=== PATIENT | female | born 1965 | race Caucasian/White ===

== ENCOUNTER → 2018-04-01 12:22 | Outpatient (CLI) | payer MEDICARE, SELFPAY ==
[2018-04-01 13:19] LABS: Amphetamine Urine VISTA NEGATIVE (<1000 ng/mL); Barbiturate Urine VISTA NEGATIVE (< 200 ng/mL); Benzodiazepine Urine VISTA NEGATIVE (< 200 ng/mL); Cocaine Urine VISTA NEGATIVE (< 300 ng/mL); Ecstacy Urine VISTA NEGATIVE (< 500 ng/mL); Methadone Urine VISTA NEGATIVE (< 300 ng/mL); PCP Urine VISTA NEGATIVE (< 25 ng/mL); THC Urine VISTA NEGATIVE (< 50 ng/mL); Vista UDS pH Range 5
== END ==
PROVIDERS: Visit Provider Anesthesiology Pain Medicine
DX: F11.20 Opioid dependence, uncomplicated (principal)
CPT/HCPCS: 80307

== ENCOUNTER → 2018-08-06 15:56 | Outpatient (CLI) | payer MEDICARE, SELFPAY ==
--- NOTE | 2018-08-06 16:00 | RAD_ITS ---
STUDY: X-RAY - RIGHT SHOULDER REASON FOR EXAM: Female, 52 years old. Chronic shoulder pain TECHNIQUE: 4 view(s) of the shoulder. COMPARISON: None. FINDINGS: There are degenerative changes involving the right acromioclavicular joint. The glenohumeral articulation is normal. There is evidence of calcific tendinitis/bursitis adjacent to the greater tuberosity. Electronically Signed: Talha Riggs MD at 2:44 EST Tel , Service support , RAD/Shoulder min 2 Views
--- OUTSIDE RECORDS SUMMARY | 2018-10-11 11:33 | XMS RPT_ITS ---
:1965 External Reference #:[id number] Author Organization OHIP Care Team Providers Name Role Phone JOSR CRUZ CNP Admitting Unavailable JOSR CRUZ CNP Attending Unavailable JOSR CRUZ CNP Primary Care Unavailable MARITZA BEJARANO MD Consulting Unavailable PROVIDER, UNKNOWN Consulting Unavailable PROVIDER, UNKNOWN Consulting Unavailable PROVIDER, UNKNOWN Consulting Unavailable JOSR CRUZ CNP Admitting Unavailable JOSR CRUZ CNP Attending Unavailable JOSR CRUZ CNP Primary Care Unavailable MARITZA BEJARANO MD Consulting Unavailable PROVIDER, UNKNOWN Consulting Unavailable PROVIDER, UNKNOWN Consulting Unavailable PROVIDER, UNKNOWN Consulting Unavailable MARITZA BEJARANO MD Admitting Unavailable MARITZA BEJARANO MD Attending Unavailable MARITZA BEJARANO MD Primary Care Unavailable MARITZA BEJARANO MD Consulting Unavailable PROVIDER, UNKNOWN Consulting Unavailable PROVIDER, UNKNOWN Consulting Unavailable PROVIDER, UNKNOWN Consulting Unavailable Christiano Small Attending Unavailable Christiano Small Referring Unavailable MARITZA BEJARANO Primary Care Unavailable Christiano Small Attending Unavailable Christiano Small Referring Unavailable STALIN CRAFT Primary Care Unavailable PROBLEMS PROBLEMS DATE TYPE CONDITION / CODE ATTENDING STATUS SOURCE 07/22/2018 Secondary Type 2 diabetes MARITZA BEJARANO Active Jem Bowens Diagnosis mellitus without MD [facility] complications / Hospital E119(ICD-10) Repository 07/22/2018 Principle Iron deficiency MARITZA BEJARANO Active Jem Bowens Diagnosis anemia, unspecified [facility] / D509(ICD-10) Hospital Repository 07/22/2018 Secondary Hypothyroidism, MARITZA BEJARANO Active Jem Bowens Diagnosis unspecified / MD [facility] E039(ICD-10) Hospital Repository 07/22/2018 Principle Encounter for JOSR CRUZ Active Jem Cabaarpita Diagnosis general adult [place] [facility] with abnormal Repository findings / Z0001(ICD-10) 07/20/2018 Admitting Encounter for JOSR CRUZ Active Jem Cabaarpita Diagnosis screening mammogram [facility] neoplasm of breast Repository / Z1231(ICD-10) 07/20/2018 Principle Encounter for JOSR CRUZ Active Jem Bowens Diagnosis screening mammogram [facility] neoplasm of breast Repository / Z1231(ICD-10) 04/10/2018 Unknown F11.20 - Opioid Christiano Small [place] dependence, [facility] F11.20(ICD-10) Repository PROCEDURES PROCEDURES No Procedure Records FoundRESULTS RESULTS SHOULDER MIN 2 VIEWS Observed: 08/06/2018 Status: F Source: CRESSON 4:00 PM [facility] REPOSITORY [facility] [address] [place] [address] Shoulder min 2 Views MR#: [id number] Acct: [id number] Name: ALBA BISWAS Rep #: [id number] : 1965 F 52 From: Talha Riggs MD PCP: Maritza Bejarano Status: REG CLI Study: Shoulder min 2 Views Date of Exam: 08/06/18 Exam# [id number] Ordering Dr: Christiano Small MD STUDY: X-RAY - RIGHT SHOULDER REASON FOR EXAM: Female, 52 years old. Chronic shoulder pain TECHNIQUE: 4 view(s) of the shoulder. COMPARISON: None. FINDINGS: There are degenerative changes involving the right acromioclavicular joint. The glenohumeral articulation is normal. There is evidence of calcific tendinitis/bursitis adjacent to the greater tuberosity. Electronically Signed: Talha Riggs MD at 2:44 EST Tel , Service support , RAD/Shoulder min 2 Views CC: Christiano Small MD; Maritza Bejarano Software Architect: Signed MAMM DIGITAL BILAT Observed: 07/20/2018 Status: F Source: [facility] SCREEN 3:43 PM [place] [address] Patient: ALBA BISWAS Phone#: : 1965 Age: 52 Gender: F Pt. Type: Out Account: [id number] Location: [facility] Ordering: JOSR CRUZ Exam Date: 07/20/2018/15:18 Family Phys: MARITZA BEJARANO Charge Code: [id number] Physician: [place] Order #: [id number] DLP Dose#: PROCEDURE: MAMM BILAT DIGITAL SCREENING WITH CAD COMPARISON: [facility], BILAT SCREENING, 01/22/2013, 8:58. INDICATIONS: Screening BREAST COMPOSITION: Scattered fibroglandular densities (25-50% glandular). FINDINGS: DIAGNOSTIC CATEGORY 1--NEGATIVE ASSESSMENT. RIGHT BREAST: No significant suspicious finding. There are scattered benign calcifications. No significant change has occurred. LEFT BREAST: No significant suspicious finding. There are scattered benign calcifications. No significant change has occurred. RECOMMENDATIONS: ROUTINE MAMMOGRAM AND CLINICAL EVALUATION. PLEASE NOTE: A NORMAL MAMMOGRAM DOES NOT EXCLUDE THE POSSIBILITY OF BREAST CANCER. A CLINICALLY SUSPICIOUS PALPABLE LUMP SHOULD BE BIOPSIED. THIS FACILITY UTILIZES A REMINDER SYSTEM TO ENSURE THAT ALL PATIENTS RECEIVE REMINDER LETTERS FOR APPOINTMENTS. THIS INCLUDES REMINDERS FOR ROUTINE MAMMOGRAMS, DIAGNOSITC MAMMOGRAMS, OR OTHER BREAST IMAGING INTERVENTIONS WHEN APPROPRIATE. THIS PATIENT WILL BE PLACED IN THE APPROPRIATE REMINDER SYSTEM. Dictated by: Rosa Maria Armstrong MD on 07/20/2018 at 16:00 Approved by: Rosa Maria Armstrong MD on 07/20/2018 at 16:00 URINE DRUG SCREEN Collected: 04/01/2018 Status: F Source: BENJA (VISTA) 12:28 PM [facility] REPOSITORY Order Comment: Comments: [id number] urine tramadol List of Drugs Taken or Suspected? UNK TYPE CODE TESTS RESULT OUT OF RANGE REFERENCE UNITS LAB L505.0075 TO BE Normal CONFIRMED Result Comment: CONFIRMATORY TESTING FOR ALL POSITIVE URINE DRUG SCREEN RESULTS WILL ONLY BE SENT OUT UPON PHYSICIAN ORDER. VISTA Urine Drug Screen methods provide only preliminary analytical test results. A more specific alternate chemical method must be used in order to obtain a confirmed analytical result. Gas chromatography/mass spectrometery (GC/MS) is the preferred confirmatory method. Clinical consideration and professional judgement should be applied to any drug of abuse test result, particularly when preliminary positive results are used. URINE TCA TESTING MUST BE ORDERED SEPARATELY. USE TEST MNEMONIC: [facility] LAB L505.5005 VISTA UDS PH 5 Normal LAB L505.5015 <1000 ng/mL AMPHETAMINES Normal NEGATIVE LAB L505.5025 < 200 ng/mL BARBITIURATES Normal NEGATIVE LAB L505.5035 < 200 ng/mL BENZODIAZIPINE Normal NEGATIVE LAB L505.5045 < 300 ng/mL COCAINE Normal NEGATIVE LAB L505.5055 < 500 ng/mL ECSTACY Normal NEGATIVE LAB L505.5065 < 300 ng/mL METHADONE Normal NEGATIVE LAB L505.5075 < 300 ng/mL OPIATES Normal NEGATIVE LAB L505.5085 < 25 ng/mL PCP Normal NEGATIVE LAB L505.5095 < 50 ng/mL THC Normal NEGATIVE Performed By: #### L505.5000 #### [facility] [address] [place], [address] MISCELLANEOUS LAB Collected: 04/01/2018 Status: F Source: BENJA PROCEDURE 12:28 PM [facility] REPOSITORY Order Comment: Comments: [id number] urine tramadol Test(s) Ordered: [id number] urine tox run lowest test TYPE CODE TESTS RESULT OUT OF RANGE REFERENCE UNITS LAB L801.1541 Normal [facility] TEST Result Comment: [id number] 6+OXYCODONE-BUND (ng/mL) DRUG RESULT SCREEN CUTOFF ____ Amphetamines,Urine Negative ng/mL 1000 Amphetamine test includes Amphetamine and Methamphetamine. Barbiturates Negative ng/mL 200 Benzodiazepines Negative ng/mL 200 Cannabinoid Negative ng/mL 20 Cocaine (Metab) Negative ng/mL 300 Opiates Negative ng/mL 300 Opiates test includes Codeine, Morphine, Hydromorphone, Hydrocodone. Oxycodone/Oxymorphone,Urine Negative ng/mL 300 Test includes Oxydodone and Oxymorphone. TESTING PERFORMED AT [facility]. ORIGINAL REPORT ON FILE IN LAB CONTAINS ADDITIONAL TEST SITE INFORMATION. Performed By: #### L801.1541 #### [facility], [address] MISCELLANEOUS LAB Collected: 04/01/2018 Status: F Source: BENJA PROCEDURE 2 12:28 PM [facility] REPOSITORY Order Comment: Comments: [id number] urine tramadol List Test(s) Ordered by Physician: [id number] urine tramadol TYPE CODE TESTS RESULT OUT OF RANGE REFERENCE UNITS LAB L801.1543 Normal [facility] TEST 2 Result Comment: TEST RESULT LIMITS Tramadol Positive Tafmsu=533 Tramadol GC/MS Conf 62202 Jaaoqa=885 [facility]. ORIGINAL REPORT ON FILE IN LAB CONTAINS ADDITIONAL TEST SITE INFORMATION. Performed By: #### L801.1543 #### [facility] [address] [place], [place], [id number] ALLERGIES ALLERGIES DATE TYPE / NAME / CODE REACTION SEVERITY SOURCE CODE Drug PENICILLINS ANAPHYLAXIS Moderate Jem Pomerene Allergy/41 (CLASS)/84225179( ([facility] 6235075(SN RXNORM) Modifier) [facility]) (Qualifier Repository Value) Drug ASPIRIN/18291793( RASH Moderate Jem Pomerene Allergy/41 RXNORM) ([facility] 4507731(SN Modifier) [facility]) (Qualifier Repository Value) Drug ERYTHROMYCIN/0000 RASH Moderate Jem Pomerene Allergy/41 0326(RXNORM) ([facility] 9043567(SN Modifier) [facility]) (Qualifier Repository Value) Drug IBUPROFEN/8232450 Swelling Moderate Jem Pomerene Allergy/41 5(RXNORM) ([facility] 0853078(SN Modifier) [facility]) (Qualifier Repository Value) Drug ROFECOXIB/6534485 Moderate Jem Pomerene Allergy/41 3(RXNORM) ([facility] 2375364(SN Modifier) [facility]) (Qualifier Repository Value) Drug CEFTIN/47181606(R Moderate Jem Pomerene Allergy/41 XNORM) ([facility] 0958430(SN Modifier) [facility]) (Qualifier Repository Value) Drug KEFLEX/06265808(R RASH Moderate Jem Pomerene Allergy/41 XNORM) ([facility] 2987937(SN Modifier) Hospital [facility]) (Qualifier Repository Value) Drug LEVAQUIN/57422690 RASH Moderate Jem Pomerene Allergy/41 (RXNORM) ([facility] 1643154(SN Modifier) [facility]) (Qualifier Repository Value) Drug NAPROSYN/93584986 LOC Moderate Jem Pomerene Allergy/41 (RXNORM) ([facility] 0537702(SN Modifier) [facility]) (Qualifier Repository Value) Drug EGGS/68512088(RXN RASH Moderate Jem Pomerene Allergy/41 ORM) ([facility] 0289003(SN Modifier) [facility]) (Qualifier Repository Value) ENCOUNTERS ENCOUNTERS ADMIT/DISCHARGE ACCOUNT ADMITTING ENCOUNTER LOCATION SOURCE NUMBER CLASS 08/06/2018 [id number] Ambulatory Benja Benja 2 [facility] ing:RAD Repository 07/22/2018 [id number] MARITZA BEJARANO Ambulatory Jem Pomnenane [facility] Repository 07/22/2018 [id number] ANTHONY, [facility] Jem Pomerene [facility] Repository 07/20/2018/ [id number] ANTHONY, [facility] Jem Pomerene [address] [place] [address] Repository 04/01/2018 [id number] Ambulatory Benja Benja 4 [facility] ing:LAB Repository PAYERS PAYERS ENCOUNTER GUARANTOR PAYER SUBSCRIBER SOURCE 08/06/2018 ALBA S Primary ALBA Velvet Yousif [id number] Insurance:ANTHEM HITCHCOCKDOB: Community [employer] PPOPolicy [id number] Number: Repository [address]Sjf: 330 [id number] [phone] () Date:[id number] [address]FI: 08/06/2018 Secondary NOT GIVENUNK [place] Insurance:SELF PAY [facility] Number: Effective Repository Date:2018-08-06 07/22/2018 ALBA Primary ALBA [place] Pomisabella HITCHCOCKDOB: Insurance:ANTHEM [place] HITCHCOCKDOB: [facility] W MEDICAREPolicy Number: [id number] [id number] [place], [place] Date:Plan Name:[place], [place] [address]Nxr: [phone] () 07/22/2018 ALBA Primary Insurance:BLUE ALBA S Jem Bowens HITCHCOCKDOB: CROSS ANTHEM O HITCHCOCKDOB: [facility] W [facility] [id number] [address] Number: BENJA Repository [place] [id number] [facility], [address]Xxx: ([phone]) Date:Plan Name:B3P O [place] [id number] [phone] () [address] [place] [address] [phone]: 07/20/2018 ALBA Primary Insurance:BLUE ALBAJANIS Bowens HITCHCOCKDOB: CROSS ANTHEM O HITCHCOCKDOB: [facility] W [facility] [id number] [address] Number: BENJA Repository [place] [id number] [facility], [address]Olu: [phone]) Date:Plan Name:B3P O [place] [id number] [phone] () [address] [place] [address] [id number]: 04/01/2018 Alba S Primary Alba S Benja [id number] Insurance:ANTHEM HitchcockDOB: Community [place] MEDICARE PPOPolicy [id number] Number: Repository [phone]: [phone]) [id number] [phone] () Date:[id number] [address] [place] [address]WG: 04/01/2018 Secondary NOT GIVENUNK [place] Insurance:SELF PAY [facility] Number: Effective Repository Date:2018-04-01
== END ==
LOC: RAD 15:59
PROVIDERS: Family Provider Internal Medicine Infectious Disease; PCP Internal Medicine Infectious Disease; Referring Provider Anesthesiology Pain Medicine; Visit Provider Anesthesiology Pain Medicine
DX: M25.511 Pain in right shoulder (principal); G89.29 Other chronic pain
CPT/HCPCS: 73030

== ENCOUNTER → 2019-03-10 | Outpatient (CLI) | payer MEDICARE, SELFPAY ==
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
== END | disposition home or self-care (01) ==
LOC: RAD 11:57
PROVIDERS: Family Provider Internal Medicine Infectious Disease; PCP Internal Medicine Infectious Disease; Referring Provider Anesthesiology Pain Medicine; Visit Provider Anesthesiology Pain Medicine
DX: M54.2 Cervicalgia (principal)
CPT/HCPCS: 72040

== ENCOUNTER → 2020-03-10 13:33 | Outpatient (CLI) | payer MEDICARE, SELFPAY ==
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
== END ==
PROVIDERS: PCP Internal Medicine Infectious Disease; Referring Provider Anesthesiology Pain Medicine; Visit Provider Anesthesiology Pain Medicine
DX: M54.2 Cervicalgia (principal); M79.603 Pain in arm, unspecified
CPT/HCPCS: 72141

== ENCOUNTER → 2020-08-17 17:00 | Outpatient (CLI) | payer MEDICARE, SELFPAY ==
[2020-08-17 18:46] LABS: Amphetamine Urine VISTA NEGATIVE (<1000 ng/mL); Barbiturate Urine VISTA NEGATIVE (< 200 ng/mL); Benzodiazepine Urine VISTA NEGATIVE (< 200 ng/mL); Cocaine Urine VISTA NEGATIVE (< 300 ng/mL); Ecstacy Urine VISTA NEGATIVE (< 500 ng/mL); Methadone Urine VISTA NEGATIVE (< 300 ng/mL); PCP Urine VISTA NEGATIVE (< 25 ng/mL); THC Urine VISTA NEGATIVE (< 50 ng/mL); Vista UDS pH Range 5
== END ==
PROVIDERS: PCP Internal Medicine Infectious Disease; Referring Provider Anesthesiology Pain Medicine; Visit Provider Anesthesiology Pain Medicine
DX: F11.20 Opioid dependence, uncomplicated (principal)
CPT/HCPCS: 80307

== ENCOUNTER → 2020-12-14 11:12 | Outpatient (CLI) | payer MEDICARE, SELFPAY ==
[2020-12-14 12:53] LABS: Amphetamine Urine VISTA NEGATIVE (<1000 ng/mL); Barbiturate Urine VISTA NEGATIVE (< 200 ng/mL); Benzodiazepine Urine VISTA NEGATIVE (< 200 ng/mL); Cocaine Urine VISTA NEGATIVE (< 300 ng/mL); Ecstacy Urine VISTA NEGATIVE (< 500 ng/mL); Methadone Urine VISTA NEGATIVE (< 300 ng/mL); PCP Urine VISTA NEGATIVE (< 25 ng/mL); THC Urine VISTA NEGATIVE (< 50 ng/mL); Vista UDS pH Range 6
[2020-12-14 13:29] LABS: BUP Internal Control LINE = VALID (VALID); Buprenorphine Drug Screen Negative (<10 ng/mL)
== END ==
PROVIDERS: Referring Provider Anesthesiology Pain Medicine; Visit Provider Anesthesiology Pain Medicine
DX: F11.20 Opioid dependence, uncomplicated (principal)
CPT/HCPCS: 36415; 80307

== ENCOUNTER → 2020-12-28 07:46 | Outpatient (CLI) | payer MEDICARE, SELFPAY ==
--- NOTE | 2020-12-28 07:52 | MRI_ITS ---
History: BACK PAIN, LEG PAIN Technique: T1 and T2 MR imaging of the lumbar spine performed without contrast enhancement in axial and sagittal planes. Comparison: October 27, 2015 Findings: No change in the mildly accentuated lumbar lordosis. Alignment of the lumbar vertebral bodies is otherwise unremarkable. No bone marrow edema. Conus medullaris and cauda equina are normal. Paraspinal soft tissue structures are normal. L1-2: Anterior vertebral body osteophytosis again noted. No disc protrusion. Normal caliber spinal canal and neural foramina. L2-3: Anterolateral vertebral body osteophytosis. No disc protrusion. Normal caliber spinal canal and neural foramina. L3-4: Prominent left anterolateral vertebral body osteophytosis. No disc protrusion. Normal caliber spinal canal and neural foramina. L4-5: Left posterolateral disc protrusion results in left lateral recess and foraminal narrowing. Posterior ligamentous redundancy and facet arthropathy causes mild impression on the thecal sac. L5-S1: Central disc protrusion which appears slightly more prominent on the current exam without significant impression on the thecal sac. Facet arthropathy noted resulting in mild narrowing of the left neural foramen. IMPRESSION: Multilevel vertebral body osteophytosis. Left L4-5 lateral recess and foraminal stenosis related to disc protrusion. Mild L4-5 spinal stenosis secondary to posterior ligamentous redundancy and facet arthropathy. Central L5-S1 disc protrusion without significant impingement on the thecal sac. Narrowing of the left L5-S1 neuroforamen related to facet arthropathy. at 1049 Reported and signed by: Eligio Padilla MD Electronically Signed: Eligio Padilla MD at 10:48 EDT Tel , Service support , MRI/Spine Lumbar (Routine)
== END ==
LOC: MRI 07:49
PROVIDERS: Referring Provider Anesthesiology Pain Medicine; Visit Provider Anesthesiology Pain Medicine
DX: M54.16 Radiculopathy, lumbar region (principal); M54.17 Radiculopathy, lumbosacral region; M51.36 Other intervertebral disc degeneration, lumbar region; M51.37 Other intervertebral disc degeneration, lumbosacral region; G89.4 Chronic pain syndrome; M51.86 Other intervertebral disc disorders, lumbar region; M51.27 Other intervertebral disc displacement, lumbosacral region
CPT/HCPCS: 72148

== ENCOUNTER → 2021-04-02 11:53 | Outpatient (CLI) | payer MEDICARE, SELFPAY ==
[2021-04-02 15:17] LABS: Erythrocyte Sedimentation Rate 37 mm/hr (0-30)
[2021-04-10 18:31] LABS: HLA B27 Negative (.)
== END ==
LOC: MTLAB 11:55
PROVIDERS: PCP Internal Medicine Infectious Disease; Referring Provider Orthopaedic Surgery; Visit Provider Orthopaedic Surgery
DX: M45.9 Ankylosing spondylitis of unspecified sites in spine (principal)
CPT/HCPCS: 36415; 81374; 85652; 86140

== ENCOUNTER → 2021-12-27 | Outpatient (CLI) | payer MEDICARE, SELFPAY ==
--- NOTE | 2021-12-27 14:26 | RAD_ITS ---
EXAM: XR RIGHT KNEE, 1 OR 2 VIEWS CLINICAL INDICATION: OA TECHNIQUE: Frontal and/or lateral views of the right knee. This report was created using [employer] report generation technology. COMPARISON: None. FINDINGS: BONES/JOINTS: There is severe narrowing of the medial and patellofemoral compartments with osteophytes. No acute fracture. No subluxation. Normal alignment. No sclerotic or destructive changes observed. SOFT TISSUES: Unremarkable. No soft tissue swelling or gas. No radiopaque foreign body. RAD/Knee 1 or 2 Views IMPRESSION: Severe degenerative changes in the medial and patellofemoral compartments with joint space narrowing and osteophyte formation. There are no acute osseous abnormalities. Electronically Signed: Amilcar Rowland MD at 18:06 EDT ,
--- NOTE | 2021-12-27 14:26 | RAD_ITS ---
EXAM: XR LEFT KNEE, 1 OR 2 VIEWS CLINICAL INDICATION: OA TECHNIQUE: Frontal and/or lateral views of the left knee. This report was created using [employer] report generation technology. COMPARISON: None. FINDINGS: BONES/JOINTS: There are severe degenerative changes in the medial knee with joint space narrowing and osteophyte formation. There is mild to moderate narrowing of the patellofemoral compartment. No acute fracture. No subluxation. Normal alignment. No sclerotic or destructive changes observed. SOFT TISSUES: Unremarkable. No soft tissue swelling or gas. No radiopaque foreign body. RAD/Knee 1 or 2 Views IMPRESSION: Severe degenerative changes in the medial knee with space narrowing and osteophyte formation. There are no acute osseous abnormalities. Electronically Signed: Amilcar Rowland MD at 18:05 EDT ,
== END | disposition home or self-care (01) ==
LOC: RAD 14:24
PROVIDERS: PCP Internal Medicine Infectious Disease; Referring Provider Anesthesiology Pain Medicine; Visit Provider Anesthesiology Pain Medicine
DX: M17.0 Bilateral primary osteoarthritis of knee (principal)
CPT/HCPCS: 73560

== ENCOUNTER → 2022-04-18 | Outpatient (CLI) | payer MEDICARE, SELFPAY ==
[2022-04-18 13:05] LABS: BUP Internal Control LINE = VALID (VALID); Buprenorphine Drug Screen Negative (<10 ng/mL)
[2022-04-18 13:13] LABS: Amphetamine Urine VISTA NEGATIVE (<1000 ng/mL); Barbiturate Urine VISTA NEGATIVE (< 200 ng/mL); Benzodiazepine Urine VISTA NEGATIVE (< 200 ng/mL); Cocaine Urine VISTA NEGATIVE (< 300 ng/mL); Ecstacy Urine VISTA NEGATIVE (< 500 ng/mL); Methadone Urine VISTA NEGATIVE (< 300 ng/mL); PCP Urine VISTA NEGATIVE (< 25 ng/mL); THC Urine VISTA NEGATIVE (< 50 ng/mL); Vista UDS pH Range 5
== END | disposition home or self-care (01) ==
LOC: LAB 10:56
PROVIDERS: PCP Internal Medicine Infectious Disease; Referring Provider Anesthesiology Pain Medicine; Visit Provider Anesthesiology Pain Medicine
DX: F11.20 Opioid dependence, uncomplicated (principal)
CPT/HCPCS: 80307

== ENCOUNTER → 2023-06-30 | Outpatient (CLI) | payer MEDICARE, SELFPAY ==
--- NOTE | 2023-06-30 13:15 | MRI_ITS ---
STUDY: MRI RIGHT SHOULDER REASON FOR EXAM: Female, 57 years old. Pain, rule out cuff tear. TECHNIQUE: Standardized fat and water weighted pulse sequences were obtained in all 3 orthogonal planes. COMPARISON: Right shoulder radiographs dated 05/29/2023. FINDINGS: There is a moderate grade partial thickness articular surface tear of the distal supraspinatus tendon insertion, overall measuring 4 mm in length (coronal T2 series 6 image 12) and 5 mm in width (sagittal T2 series 7 images 13-14). There is mild infraspinatus tendinosis. Normal subscapularis tendon. Normal teres minor tendon. Normal supraspinatus muscle. Normal infraspinatus muscle. Normal subscapularis muscle. Normal teres minor muscle. Normal glenohumeral articulation. There is enthesopathic subcortical cyst formation of the greater tuberosity of the humeral head. Normal biceps labral complex. Normal intracapsular long biceps tendon. Normal labrum. Normal capsulo-ligamentous complex. Normal rotator interval. There is hypertrophic acromioclavicular arthrosis, with inferior osteophyte formation, with minimal effacement of the supraspinatus myotendinous junction (coronal T2 series 6 image 14). There is a Type II morphology (curved), with a neutral orientation. There is a small amount of subacromial-subdeltoid bursal fluid. Normal visualized coracohumeral and coracoacromial ligaments. Normal quadrilateral space. Normal axillary space. Normal deltoid muscle. Normal trapezius muscle. MRI/Upper Ext Joint Only(Routine) IMPRESSION: 4 x 5 mm moderate grade partial thickness articular surface tear of the distal supraspinatus tendon insertion. Mild infraspinatus tendinosis. Hypertrophic acromioclavicular arthrosis, with inferior osteophyte formation, with minimal effacement of the supraspinatus myotendinous junction. Mild subacromial-subdeltoid bursitis. Electronically Signed: Bill Tristan MD at 15:21 EST ,
--- NOTE | 2023-06-30 13:22 | MRI_ITS ---
EXAM: MR CERVICAL SPINE WITHOUT INTRAVENOUS CONTRAST CLINICAL INDICATION: CERVICAL RADICULOPATHY TECHNIQUE: Multiplanar and multisequence MR images of the cervical spine without intravenous contrast were performed. COMPARISON: MR Cervical Spine dated 03/10/2020 FINDINGS: VERTEBRAE: Normal. Normal vertebral bodies and posterior elements. Normal alignment. Normal craniocervical junction and cervicothoracic junction. No spondylolisthesis. There is preservation of the normal cervical lordosis. SPINAL CORD: Unremarkable in signal and morphology. SOFT TISSUES: No prevertebral soft tissue swelling. LYMPH NODES: Normal. There is no cervical adenopathy. DISCS/SPINAL CANAL/NEURAL FORAMINA: C2-C3: Normal. Normal disc height and morphology. Normal spinal canal. Normal neuroforamina. C3-C4: Normal. Normal disc height and morphology. Normal spinal canal. Normal neuroforamina. C4-C5: Normal disc height and morphology. Posterior ligamentous redundancy again noted causing mild impingement on the posterior portion of the thecal sac. Normal neuroforamina. C5-C6: Normal disc height and morphology. Posterior ligamentous redundancy results in mild compression of the dorsal thecal sac. Normal neuroforamina. C6-C7: Normal. Normal disc height and morphology. Normal spinal canal. Normal neuroforamina. C7-T1: Normal. Normal disc height and morphology. Normal spinal canal. Normal neuroforamina. 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 No significant interval change. Electronically Signed: Eligio Padilla MD at 16:54 EST ,
== END | disposition home or self-care (01) ==
LOC: MRI 13:13
PROVIDERS: PCP Internal Medicine Infectious Disease; Referring Provider Anesthesiology Pain Medicine; Visit Provider Anesthesiology Pain Medicine
DX: M54.12 Radiculopathy, cervical region (principal)
CPT/HCPCS: 72141; 73221

== ENCOUNTER → 2023-07-16 | Outpatient (CLI) | payer MEDICARE, SELFPAY ==
[2023-07-16 13:43] LABS: BUP Internal Control LINE = VALID (VALID); Buprenorphine Drug Screen Negative (<10 ng/mL)
[2023-07-16 13:56] LABS: Amphetamine Urine VISTA NEGATIVE (<1000 ng/mL); Barbiturate Urine VISTA NEGATIVE (< 200 ng/mL); Benzodiazepine Urine VISTA NEGATIVE (< 200 ng/mL); Cocaine Urine VISTA NEGATIVE (< 300 ng/mL); Ecstacy Urine VISTA NEGATIVE (< 500 ng/mL); Methadone Urine VISTA NEGATIVE (< 300 ng/mL); PCP Urine VISTA NEGATIVE (< 25 ng/mL); THC Urine VISTA NEGATIVE (< 50 ng/mL); Vista UDS pH Range 4
== END | disposition home or self-care (01) ==
PROVIDERS: PCP Internal Medicine Infectious Disease; Referring Provider Anesthesiology Pain Medicine; Visit Provider Anesthesiology Pain Medicine
DX: F11.20 Opioid dependence, uncomplicated (principal)
CPT/HCPCS: 80307

== ENCOUNTER → 2025-01-20 | Outpatient (CLI) | payer MEDICARE, SELFPAY ==
[2025-01-20 17:09] LABS: Barbiturate Urine NEGATIVE (< 200 ng/mL); Benzodiazepine Urine NEGATIVE (< 200 ng/mL); PCP Urine NEGATIVE (< 25 ng/mL); THC Urine NEGATIVE (< 50 ng/mL)
--- OUTSIDE RECORDS SUMMARY | 2025-01-20 23:20 | XMS RPT_ITS | CCD ---
Author Organization [facility] Care Team Providers Care Outplacement Consultant Name Role Phone Maritza Villalta Referring Unavailable Maritza Villalta Primary Care Unavailable Louis Townsend Attending Unavailable Maritza Villalta Primary Care Unavailable Christiano Small Referring Unavailable Christiano Small Attending Unavailable Maritza Villalta Primary Care Unavailable Christiano Small Referring Unavailable Christiano Small Attending Unavailable Maritza Villalta Primary Care Unavailable Bobby Henry Attending Unavailable AMBAR AJ, DR SALAS Primary Care Unavailable CHARLES FIELD Attending Unaviridiana VILLALTA MD, DR SALAS Primary Care Unavailable CHARLES FIELD Attending Unava ilCHARLES Terrell Admitting Unava ilCHARLES Terrell Attending Unava josette VILLALTA MD, DR SALAS Primary Care Unavailable Dr. Maritza Villalta Primary Care Provider [phone] Dr. Maritza Villalta Referring Provider MD Louis Townsend Attending Provider [phone] Dr. Bobby Henry Attending Provider CHARLES FIELD Attending Unava josette VILLALTA MD, DR SALAS Primary Care Unavailable AMBAR AJ, DR SALAS Primary Care Unavailable CHARLES FIELD Attending MARITZA Coronado MD Consulting Unavailable OMAYRA STANFORD MD Attending UnaOMAYRA Luna MD Admitting Unava OMAYRA Espinal MD Primary Care Unava ilable PROVIDER, UNKNOWN Consulting Unavailable PROVIDER, UNKNOWN Consulting Unavailable PROVIDER, UNKNOWN Consulting Unavailable ANTONIO SALVADOR MD Referring Unavailabl e MARITZA VILLALTA MD Consulting Unavailable OMAYRA STANFORD MD Attending Unava OMAYRA Espinal MD Primary Care Unava ilable HIEN, OMAYRA AJ Admitting Unava ilable PROVIDER, UNKNOWN Consulting Unavailable PROVIDER, UNKNOWN Consulting Unavailable PROVIDER, UNKNOWN Consulting Unavailable MARITZA VILLALTA MD Attending Unavailable MARITZA VILLALTA MD Admitting Unavailable MARITZA VILLALTA MD Primary Care Unavailable MARITZA VILLALTA MD Consulting Unavailable PROVIDER, UNKNOWN Consulting Unavailable PROVIDER, UNKNOWN Consulting Unavailable PROVIDER, UNKNOWN Consulting Unavailable ANTONIO SALVADOR MD Primary Care Unavailabl e MADELEINE, ANTONIO AJ Attending Unavailabl e ANTONIO SALVADOR MD Admitting Unavailabl e ANTONIO SALVADOR MD Attending Unavailabl e ANTONIO SALVADOR MD Admitting Unavailabl e ANTONIO SALVADOR MD Primary Care Unavailbrian e MARITZA VILLALTA MD Consulting Unavailable MARITZA VILLALTA MD Attending Unavailable MARITZA VILLALTA MD Admitting Unavailable MARITZA VILLALTA MD Primary Care Unavailable PROVIDER, UNKNOWN Consulting Unavailable PROVIDER, UNKNOWN Consulting Unavailable PROVIDER, UNKNOWN Consulting Unavailable ANTONIO SALVADOR MD Attending Unavailabl e ANTONIO SALVADOR MD Admitting Unavailbrian e ANTONIO SALVADOR MD Primary Care Unavailabl e MARITZA VILLALTA MD Attending Unavailable MARITZA VILLALTA MD Admitting Unavailable MARITZA VILLALTA MD Primary Care Unavailable MARITZA VILLALTA MD Consulting Unavailable PROVIDER, UNKNOWN Consulting Unavailable PROVIDER, UNKNOWN Consulting Unavailable PROVIDER, UNKNOWN Consulting Unavailable ANTONIO SALVADOR MD Attending Unavailabl e ANTONIO SALVADOR MD Admitting Unavailabl e ANTONIO SALVADOR MD Primary Care Unavailabl e MARITZA VILLALTA MD Consulting Unavailable PROVIDER, UNKNOWN Consulting Unavailable PROVIDER, UNKNOWN Consulting Unavailable PROVIDER, UNKNOWN Consulting Unavailable CHARLES BARRIOS Attending Unavailable CHARLES BARRIOS Admitting Unavailable CHARLES BARRIOS Primary Care Unavailable MARITZA VILLALTA MD Consulting Unavailable PROVIDER, UNKNOWN Consulting Unavailable PROVIDER, UNKNOWN Consulting Unavailable PROVIDER, UNKNOWN Consulting Unavailable MARITZA VILLALTA MD Consulting Unavailable MARITZA VILLALTA MD Attending Unavailable MARITZA VILLALTA MD Admitting Unavailable MARITZA VILLALTA MD Primary Care Unavailable PROVIDER, UNKNOWN Consulting Unavailable PROVIDER, UNKNOWN Consulting Unavailable PROVIDER, UNKNOWN Consulting Unavailable Allergies Allergy Classification Reported Allergen(s) Allergy Type Date of Onset Reaction(s) Facility (3 sources) Aspirin Drug Allergy 1 [facility] (3 sources) levoFLOXacin Drug Allergy 1 [facility] (4 sources) Penicillins; Translations: [Penicillins] Allergy to substance 1 [facility] (3 sources) rofecoxib Drug Allergy 1 rash [facility] (1 source) Aspirin Drug Allergy 3 [facility] (1 source) levoFLOXacin Drug Allergy 3 [facility] (1 source) rofecoxib Drug Allergy 3 [facility] (1 source) Aspirin Drug Allergy [facility] (1 source) Cefuroxime Drug Allergy [facility] (1 source) Cephalexin Drug Allergy [facility] (1 source) Egg Drug allergy (disorder) [facility] (1 source) Erythromycin Drug Allergy [facility] (1 source) Ibuprofen Drug Allergy [facility] (1 source) levoFLOXacin Drug Allergy [facility] (1 source) Naproxen Drug Allergy [facility] (1 source) Penicillins Drug allergy (disorder) [facility] (1 source) rofecoxib Drug Allergy [facility] Medications Current Medications Medication Drug Class(es) Dates Sig (Normalized) Sig (Original) Alcohol Swabs (True Comfort Pro Alcohol Pads) pads, medicated (1 source) Start: 05-29-2023 Alcohol Swabs (True Comfort Pro Alcohol Pads) pads, medicated Active PAD TOPICAL May 29, 2023 12:00am Allopurinol (1 source) Xanthine Oxidase Inhibitor Start: 05-29-2023 Allopurinol Active MG PO May 29, 2023 12:00am azelastine hydrochloride 0.137 mg/actuat metered dose nasal spray (1 source) Histamine-1 Receptor Antagonist Start: 05-29-2023 Azelastine Active INTRANASAL May 29, 2023 12:00am Blood-Glucose Meter (Onetouch Ultra2 Meter) misc (1 source) Start: 05-29-2023 Blood-Glucose Meter (Onetouch Ultra2 Meter) misc Active EACH .ROUTE .MEDSUPPLY 1 May 29, 2023 12:00am As directed buprenorphine 0.15 mg buccal film (3 sources) Partial Opioid Agonist Start: 04-02-2021 Buprenorphine Hcl Active EACH BUCCAL April 01, 2021 11:00pm cetirizine hydrochloride 10 mg oral tablet (3 sources) Histamine-1 Receptor Antagonist Start: 04-02-2021 Cetirizine Active EACH PO April 01, 2021 11:00pm cyclobenzaprine hydrochloride 5 mg oral tablet (3 sources) Muscle Relaxant Start: 04-02-2021 Cyclobenzaprine Active EACH PO April 01, 2021 11:00pm dapagliflozin 10 mg oral tablet (1 source) Sodium-Glucose Cotransporter 2 Inhibitor Start: 05-29-2023 Dapagliflozin Propanediol (Farxiga) 10 mg tablet Active MG PO May 29, 2023 12:00am fluticasone propionate 0.05 mg/actuat metered dose nasal spray (3 sources) Corticosteroid Start: 04-02-2021 Fluticasone Propionate Active G INTRANASAL April 01, 2021 11:00pm furosemide 40 mg oral tablet (3 sources) Loop Diuretic Start: 04-02-2021 Furosemide Active EACH PO April 01, 2021 11:00pm glimepiride 4 mg oral tablet (3 sources) Sulfonylurea Start: 04-02-2021 Glimepiride Active EACH PO April 01, 2021 11:00pm Lancing Device (3 sources) Start: 04-02-2021 Lancing Device Active 0 EACH .ROUTE .MEDSUPPLY 1 April 02, 2021 11:00am As directed Start: 04-02-2021 Lancing Device Active 0 EACH .ROUTE .MEDSUPPLY 1 April 01, 2021 11:00pm As directed Start: 04-02-2021 Lancing Device Active 0 EACH .ROUTE .MEDSUPPLY 1 April 02, 2021 12:00am As directed levothyroxine sodium 0.2 mg oral tablet (3 sources) l-Thyroxine Start: 04-16-2021 Levothyroxine Active TAB PO April 15, 2021 11:00pm lisinopril 2.5 mg oral tablet (3 sources) Angiotensin Converting Enzyme Inhibitor Start: 04-02-2021 Lisinopril Active EACH PO April 01, 2021 11:00pm lovastatin 40 mg oral tablet (3 sources) HMG-CoA Reductase Inhibitor Start: 04-02-2021 Lovastatin Active EACH PO April 01, 2021 11:00pm melatonin 5 mg oral capsule (3 sources) Start: 04-02-2021 Melatonin Active MG PO April 01, 2021 11:00pm 24 hr metFORMIN hydrochloride 500 mg extended release oral tablet (3 sources) Biguanide Start: 04-02-2021 Metformin Active EACH PO April 01, 2021 11:00pm 24 hr metoprolol succinate 25 mg extended release oral tablet (3 sources) beta-Adrenergic Fara Start: 04-02-2021 Metoprolol Succinate Active EACH PO April 01, 2021 11:00pm Multivitamin (Daily Multi-Vitamin) tablet (3 sources) Start: 04-02-2021 take 1 tablet by mouth once daily Multivitamin (Daily Multi-Vitamin) tablet Active 1 TABLET PO DAILY April 02, 2021 10:58am Start: 04-02-2021 take 1 tablet by tatyana th once daily Multivitamin (Daily Multi-Vitamin) tablet Active 1 TABLET PO DAILY April 01, 2021 11:00pm Start: 04-02-2021 take 1 tablet by tatyana th once daily Multivitamin (Daily Multi-Vitamin) tablet Active 1 TABLET PO DAILY April 02, 2021 12:00am potassium chloride 20 meq extended release oral tablet (3 sources) Start: 04-02-2021 Potassium Chlo ride Active EACH PO April 01, 2021 11:00pm pregabalin 50 mg oral capsul e (3 sources) Start: 04-02-2021 Pregabalin Act iram CAP PO April 01, 2021 11:00pm Problems Active Problems Problem Classification Problem Date Documented Da te Episodic/Chronic Diabetes mellitus with complications (1 source) Type 2 diabetes mellitus with hyperglycemia; Translations: [Type 2 diabetes mellitus with hyperglycemia] Onset: 01-03-2025 Chronic Diabetes mellitus without complication (3 sources) Diabetes mellitus; Translations: [Type 2 diabetes mellitus without complications] 04-02-2021 Chronic Disorders of lipid metabolism (3 sources) Hypercholesterolemi a; Translations: [Pure hypercholesterolemi a, unspecified] 04-02-2021 Chronic Essential hypertension (3 sources) Hypertensive disorder; Translations: [Essential (primary) hypertension] 04-02-2021 Chronic Heart valve disorders (3 sources) Aortic valve stenosis; Translations: [Nonrheumatic aortic (valve) stenosis] 04-02-2021 Chronic Other non-traumatic joint disorders (3 sources) Pain in right shoulder; Translations: [Right shoulder pain] Onset: 05-29-2023 05-29-2023 Episodic Rheumatoid arthritis and related disease (3 sources) Ankylosing spondylitis; Translations: [Ankylosing spondylitis of unspecified sites in spine] 04-02-2021 Chronic Spondylosis; intervertebral disc disorders; other back problems (6 sources) Arthritis of facet joint of lumbar spine; Translations: [Spondylosis without myelopathy or radiculopathy, lumbar region] 04-02-2021 Chronic Spondylosis; intervertebral disc disorders; other back problems (1 source) Radiculopathy, cervical region; Translations: [Radiculopathy, cervical region] Onset: 07-04-2023 Episodic Substance-related disorders (1 source) Opioid dependence, uncomplicated; Translations: [Opioid dependence, uncomplicated] Onset: 07-16-2023 Chronic Thyroid disorders (1 source) Hypothyroidism, unspecified; Translations: [Hypothyroidism, unspecified] Onset: 01-03-2025 Chronic Past or Other Problems Problem Classification Problem Date Documented Da te Episodic/Chronic Nonspecific chest pain (3 sources) Chest pain, unspecified; Translations: [Chest pain, unspecified] Onset: 01-26-2024 Episodic Other lower respiratory disease (1 source) Shortness of breath; Translations: [Shortness of breath] Onset: 01-26-2024 Episodic Other screening for suspected conditions (not mental disorders or infectious disease) (3 sources) Encounter for screening mammogram for malignant neoplasm of breast; Translations: [Encounter for screening mammogram for malignant neoplasm of breast] Onset: 07-23-2024 Episodic Results Test Name Value Interpretation Reference Range Facility .GFRon 10-05-2024 Estimated Glomerular Filtration Rate 38 ml/min/1.73sqm [facility] Comment on above: Result Comment: Stages of Chronic Kidney Disease (CKD) Stage Description eGFR(ml/min/1.73 sq.m.) CKD 1 Normal kidney function or >=90 normal kindney function with possible kidney damage (ex. Proteinuria) CKD 2 Kidney damage with mild loss 60-89 of kidney function CKD 3a Mild to moderate loss of kidney 45-59 function CKD 3b Moderate to severe loss of 30-44 of kindey function CKD 4 Severe loss of kidney function 15-29 CKD 5 Kidney failure <15 Note: (go live 2024) the eGFR calculation was updated to the 2020 CKD-EPI creatinine equation without a race factor to calculate the eGFR results. Performed By: #### G FR, B12, LIPID, VIDH, TSH, CMP, FT4 #### [address] [address] B12on 10-05-2024 Vitamin B12 Lvl >2000 High 211-911 [facility] Comment on above: Order Comment: 3 mon ths Performed By: #### G FR, B12, LIPID, VIDH, TSH, CMP, FT4 #### [address] [address] CMPon 10-05-2024 Albumin Level 3.7 G/dL Normal 3.2-4.8 [facility] Comment on above: Order Comment: 3 mon ths Performed By: #### G FR, B12, LIPID, VIDH, TSH, CMP, FT4 #### [address] [address] Albumin/Globulin [Mass ratio] 0.9 {ratio} Normal 0.9-1.6 [facility] Comment on above: Order Comment: 3 mon ths Performed By: #### G FR, B12, LIPID, VIDH, TSH, CMP, FT4 #### [address] [address] ALP [Catalytic activity/Vol] 83 U/L Normal 38-126 [facility] Comment on above: Order Comment: 3 mon ths Performed By: #### G FR, B12, LIPID, VIDH, TSH, CMP, FT4 #### [address] [address] ALT [Catalytic activity/Vol] 15 U/L Normal 10-49 [facility] Comment on above: Order Comment: 3 mon ths Performed By: #### G FR, B12, LIPID, VIDH, TSH, CMP, FT4 #### [place] [id number] [place] [address] AST [Catalytic activity/Vol] 20 U/L Normal 8-34 [facility] Comment on above: Order Comment: 3 mon ths Performed By: #### G FR, B12, LIPID, VIDH, TSH, CMP, FT4 #### [address] [address] Bili Total 0.30 mg/dL Normal 0.20-1.20 [facility] Comment on above: Order Comment: 3 mon ths Result Comment: Use of this assay is not recommended for patients undergoing treatment with eltrombopag due to the potential for falsely elevated results. Performed By: #### G FR, B12, LIPID, VIDH, TSH, CMP, FT4 #### [address] [address] BUN/Creatinine Ratio 16.0 ratio Normal 10.0-22.0 [facility] Comment on above: Order Comment: 3 mon ths Performed By: #### G FR, B12, LIPID, VIDH, TSH, CMP, FT4 #### [address] [address] Calcium [Mass/Vol] 10.1 mg/dL Normal 8.7-10.4 [facility] Comment on above: Order Comment: 3 mon ths Performed By: #### G FR, B12, LIPID, VIDH, TSH, CMP, FT4 #### [address] [address] Chloride [Moles/Vol] 102 mmol/L Normal 98-110 [facility] Comment on above: Order Comment: 3 mon ths Performed By: #### G FR, B12, LIPID, VIDH, TSH, CMP, FT4 #### [address] [address] CO2 [Moles/Vol] 33 mmol/L High 22-32 [facility] Comment on above: Order Comment: 3 mon ths Performed By: #### G FR, B12, LIPID, VIDH, TSH, CMP, FT4 #### [address] [address] Creatinine [Mass/Vol] 1.56 mg/dL High 0.50-1.20 [facility] Comment on above: Order Comment: 3 mon ths Result Comment: Test ing performed on [employer]! analyzer using enzymatic creatinine methodology. Performed By: #### G FR, B12, LIPID, VIDH, TSH, CMP, FT4 #### [address] [address] Electrolyte Balance 7.0 mEq/L Normal 4.0-15.0 [facility] Comment on above: Order Comment: 3 mon ths Performed By: #### G FR, B12, LIPID, VIDH, TSH, CMP, FT4 #### [address] [address] Globulin 4.1 G/dL High 1.5-3.8 [facility] Comment on above: Order Comment: 3 mon ths Performed By: #### G FR, B12, LIPID, VIDH, TSH, CMP, FT4 #### [address] [address] Glucose [Mass/Vol] 160 mg/dL High 70-110 [facility] Comment on above: Order Comment: 3 mon ths Performed By: #### G FR, B12, LIPID, VIDH, TSH, CMP, FT4 #### [address] [address] Potassium [Moles/Vol] 3.9 mmol/L Normal 3.5-5.0 [facility] Comment on above: Order Comment: 3 mon ths Performed By: #### G FR, B12, LIPID, VIDH, TSH, CMP, FT4 #### [address] [address] Sodium [Moles/Vol] 142 mmol/L Normal 136-145 [facility] Comment on above: Order Comment: 3 mon ths Performed By: #### G FR, B12, LIPID, VIDH, TSH, CMP, FT4 #### [address] [address] Total Protein 7.8 G/dL Normal 5.7-8.2 [facility] Comment on above: Order Comment: 3 mon ths Performed By: #### G FR, B12, LIPID, VIDH, TSH, CMP, FT4 #### [address] [address] Urea nitrogen [Mass/Vol] 25.0 mg/dL High 8.0-22.0 [facility] Comment on above: Order Comment: 3 mon ths Performed By: #### G FR, B12, LIPID, VIDH, TSH, CMP, FT4 #### [address] [address] FT4on 10-05-2024 Free T4 [Mass/Vol] 1.35 ng/dL Normal 0.89-1.76 [facility] Comment on above: Order Comment: 3 mon ths Result Comment: No te - New Reference Range in effect 20 Performed By: #### G FR, B12, LIPID, VIDH, TSH, CMP, FT4 #### [address] [address] LIPIDon 10-05-2024 Cholesterol [Mass/Vol] 121 mg/dL Normal 50-199 [facility] Comment on above: Order Comment: 3 mon ths Result Comment: Chol esterol Reference Interval: Less than 200 Desirable 200-239 Borderline high risk 240 and above High risk Performed By: #### G FR, B12, LIPID, VIDH, TSH, CMP, FT4 #### [address] [address] Cholesterol in HDL [Mass/Vol] 41 mg/dL Normal 40-59 [facility] Comment on above: Order Comment: 3 mon ths Performed By: #### G FR, B12, LIPID, VIDH, TSH, CMP, FT4 #### [address] [address] Cholesterol in LDL [Mass/Vol] 48 mg/dL Normal 0-129 [facility] Comment on above: Order Comment: 3 mon ths Performed By: #### G FR, B12, LIPID, VIDH, TSH, CMP, FT4 #### [address] [address] Triglyceride [Mass/Vol] 161 mg/dL High 3-149 [facility] Comment on above: Order Comment: 3 mon ths Performed By: #### G FR, B12, LIPID, VIDH, TSH, CMP, FT4 #### [place] [address] [place] [address] MALBRon 10-05-2024 U Creatinine 45.3 mg/dL Normal [facility] Comment on above: Order Comment: 3 mon ths Performed By: #### M ALBR #### [address] [address] U Microalb 5.8 mg/L Normal [facility] Comment on above: Order Comment: 3 mon ths Performed By: #### M ALBR #### [address] [address] U Ratio Alb/Cre 12.8 mg/G Normal 0.0-30.0 [facility] Comment on above: Order Comment: 3 mon ths Performed By: #### M ALBR #### [address] [address] TSHon 10-05-2024 TSH 2.231 mIU/mL Normal 0.550-4.780 [facility] Comment on above: Order Comment: 3 mon ths Performed By: #### G FR, B12, LIPID, VIDH, TSH, CMP, FT4 #### [address] [address] VIDHon 10-05-2024 Vit. D 25-Hydroxy 53.4 ng/mL Normal [facility] Comment on above: Order Comment: 3 mon ths Result Comment: Inte rpretive Values Based on Total 25(OH)D: Severe Deficiency <20 ng/mL Mild to Moderate Deficiency 20-30 ng/mL Optimum Levels 30-100 ng/mL Toxicity Possible >100 ng/mL Performed By: #### G FR, B12, LIPID, VIDH, TSH, CMP, FT4 #### [address] [address] PTH, INTACT [CCL]on 08-10-19 25 PTH, Intact 96 pg/mL High 15-65 [facility] Comment on above: Result Comment: [facility] [address] [place] [address] Sivakumar Mcneil III, M.D. [id number] Performed By: #### 2 24041 #### [facility],[address] [place] [address] BMP with eGFRon 08-09-2024 AGE 58 years Normal [facility] Comment on above: Performed By: #### 2 46694 #### [facility],[address] [place] [address] Anion gap [Moles/Vol] 13 mmol/L Normal - 20 [facility] Comment on above: Performed By: #### 2 67498 #### [facility],[address] [place] [address] BMP with eGFR Normal [facility] Comment on above: Result Comment: BASI C METABOLIC PANEL Performed By: #### 2 07218 #### [facility],[address] [place], [place] [id number] Calcium [Mass/Vol] 9.2 mg/dL Normal 8.5 - 10.1 [facility] Comment on above: Performed By: #### 2 25681 #### [facility],[address] [place] [address] Chloride [Moles/Vol] 103 mmol/L Normal 98 - 107 [facility] Comment on above: Performed By: #### 2 11976 #### [facility],[address] [place] [address] CO2 [Moles/Vol] 31.5 mmol/L Normal 21.0 - 32.0 [facility] Comment on above: Performed By: #### 2 79822 #### [facility],[address] [place] [address] Creatinine [Mass/Vol] 1.77 mg/dL High 0.55 - 1.02 [facility] Comment on above: Performed By: #### 2 33566 #### [facility],[address] [place] [address] eGFR 29 ML/MINUTE Low 60 - 999 [facility] Comment on above: Performed By: #### 2 92596 #### [facility],[address] [place] [address] eGFR(AA) 36 ML/MINUTE Low 60 - 999 [facility] Comment on above: Result Comment: ACCO RDING TO THE NATIONAL KIDNEY DISEASE EDUCATION PROGRAM(NKDE), A NORMAL eGFR IS A VALUE GREATER THAN OR EQUAL TO 60 ML/MIN/1.73 SQ METERS. CHRONIC KIDNEY DISEASE: <60mL/MIN/1.73 SQ METERS KIDNEY FAILURE: <15mL/MIN/1.73 SQ METERS THIS TEST SHOULD ONLY BE USED FOR PATIENTS 18 YEARS OF AGE AND OLDER. Performed By: #### 2 72554 #### [facility],[address] [place] [address] Glucose [Mass/Vol] 184 mg/dL High 74 - 106 [facility] Comment on above: Performed By: #### 2 30330 #### [facility],[address] [place] [address] Potassium [Moles/Vol] 3.5 mmol/L Normal 3.5 - 5.1 [facility] Comment on above: Performed By: #### 2 07308 #### [facility],[address] [place] [address] Sodium [Moles/Vol] 144 mmol/L Normal 136 - 145 [facility] Comment on above: Performed By: #### 2 40740 #### [facility],[address] [place] [address] Urea nitrogen [Mass/Vol] 27 mg/dL High 7 - 18 [facility] Comment on above: Performed By: #### 2 39239 #### [facility],[address] [place] [address] CBC + DIFFon 08-09-2024 Baso # 0.02 x10EE3/UL Normal 0.00 - 0.10 [facility] Comment on above: Performed By: #### 2 49846 #### [facility],[address] [place] [address] Basophils/100 WBC (Bld) 0.2 % Normal 0.0 - 2.0 [facility] Comment on above: Performed By: #### 2 23340 #### [facility],[address] [place] [address] CBC + DIFF Normal [facility] Comment on above: Result Comment: CBC- COMPLETE BLOOD COUNT Performed By: #### 2 39886 #### [place] [address] EO # 0.22 x10EE3/UL Normal 0.00 - 0.50 [facility] Comment on above: Performed By: #### 2 23917 #### [place] [address] Eosinophils/100 WBC (Bld) 2.4 % Normal 0.0 - 7.0 [facility] Comment on above: Performed By: #### 2 64485 #### [place] [address] Erythrocyte distribution width (RBC) [Ratio] 17.2 % High 12.0 - 15.6 [facility] Comment on above: Performed By: #### 2 89148 #### [place] [address] Hematocrit (Bld) [Volume fraction] 34.4 % Normal 34.0 - 46.0 [facility] Comment on above: Performed By: #### 2 12593 #### [place] [address] Hemoglobin (Bld) [Mass/Vol] 11.0 g/dL Low 12.0 - 16.0 [facility] Comment on above: Performed By: #### 2 08662 #### [facility],[address] [place] [address] Lymph # 2.84 x10EE3/UL High 0.80 - 2.80 [facility] Comment on above: Performed By: #### 2 12844 #### [facility],[address] [place] [address] Lymphocytes/100 WBC (Bld) 30.4 % Normal 20.0 - 45.0 [facility] Comment on above: Performed By: #### 2 31285 #### [facility],[address] [place] [address] MANUAL DIFF N/A Normal [facility] Comment on above: Performed By: #### 2 97752 #### [facility],[address] [place] [address] MCH (RBC) [Entitic mass] 27 pg Normal 27 - 33 [facility] Comment on above: Performed By: #### 2 39328 #### [facility],[address] [place] [address] MCHC 32 X10 3 Normal 32 - 36 [facility] Comment on above: Performed By: #### 2 22125 #### [facility],[address] [place] [address] MCV (RBC) [Entitic vol] 83 fL Normal 80 - 99 [facility] Comment on above: Performed By: #### 2 12822 #### [facility],[address] [place] [address] Marquette # 0.46 x10EE3/UL Normal 0.20 - 1.00 [facility] Comment on above: Performed By: #### 2 47268 #### [facility],[address] [place] [address] MONOS % 4.9 % Normal 0.0 - 10.0 [facility] Comment on above: Performed By: #### 2 22146 #### [facility],[address] [place] [address] Morphology Arturo (Bld) [Interp] N/A Normal [facility] Comment on above: Performed By: #### 2 44731 #### [facility],[address] [place] [address] 99160 Neut # 5.78 x10EE3/UL Normal 1.50 - 7.10 [facility] Comment on above: Performed By: #### 2 00805 #### [facility],[address] [place] [address] Neutrophils/100 WBC (Bld) 62.1 % Normal 46.0 - 76.0 [facility] Comment on above: Performed By: #### 2 42289 #### [facility],[address] [place] [address] PLATELET 274 x10EE3/UL Normal 150 - 450 [facility] Comment on above: Performed By: #### 2 05743 #### [facility],[address] [place] [address] Platelet mean volume (Bld) [Entitic vol] 8.3 fL Normal 6.6 - 10.5 [facility] Comment on above: Result Comment: AUTO MATED DIFFERENTIAL Performed By: #### 2 46380 #### [facility],[address] [place] [address] 48647 RBC 4.12 x 10EE6/UL Normal 4.10 - 5.30 [facility] Comment on above: Performed By: #### 2 79264 #### [facility],[address] [place], [place] [id number] WBC 9.3 x 10EE3/UL Normal 4.5 - 10.8 [facility] Comment on above: Performed By: #### 2 21554 #### [facility],[address] [place], [place] [id number] URIC ACIDon 08-09-2024 Urate [Mass/Vol] 3.8 mg/dL Normal 2.6 - 6.0 [facility] Comment on above: Performed By: #### 2 25604 #### [facility],[address] [place] [address] 04250 VITAMIN D, 25 HYDROXYon 07-22 VitD 43.10 ng/mL Normal 30.00 - 100 [facility] Comment on above: Result Comment: 25-O HD3 indicates both endogenous production and supplementation. 25-OHD2 is an indicator of exogenous sources, such as diet or supplementation. Therapy is based on measurement of Total 25-OHD, with levels <20 ng/mL indicative of Vitamin D deficiency, while levels between 20 ng/mL and 30 ng/mL suggest insufficiency. Optimal levels are >=30ng/mL. Vitamin D, 25-OH D3 Not Established Vitamin D, 25-OH D2 Not Established Performed By: #### 2 64326 #### [facility],[address] [place] [address] 60875 3D MAMM BILAT SCREENon 07-23 3D MAMM BILAT SCREEN [address] [address] Patient: ALBA BISWAS Phone#: : 1965 Age: 58 Gender: F Pt. Type: Out Account: [id number] Location: [facility] Ordering: MARITZA VILLALTA Exam Date: 07/23/2024/14:17 Family Phys: Charge Code: [id number] Physician: Cochran Order #: [id number] Dose#: PROCEDURE: BILATERAL SCREENING BREAST TOMOSYNTHESIS MAMMOGRAM WITH CAD COMPARISON: [facility], 3D BILAT SCREEN, 11/02/2021, 11:08. [facility], 3D BILAT SCREEN, 02/07/2023, 13:10. INDICATIONS: Screening. BREAST COMPOSITION: Scattered areas fibroglandular density. FINDINGS: DIAGNOSTIC CATEGORY 1--NEGATIVE: RIGHT BREAST: No significant suspicious finding. No significant change has occurred. LEFT BREAST: No significant suspicious finding. No significant change has occurred. RECOMMENDATIONS: ROUTINE MAMMOGRAM AND CLINICAL EVALUATION IN 12 MONTHS. PLEASE NOTE: A NORMAL MAMMOGRAM DOES NOT [...] APPROPRIATE REMINDER SYSTEM. Dictated by: Rosa Maria Corona MD on 07/23/2024 at 16:46 Approved by: Rosa Maria Corona MD on 07/23/2024 at 16:57 Normal [facility] CBC + DIFFon 06-30-2024 Baso # 0.03 x10EE3/UL Normal 0.00 - 0.10 [facility] Comment on above: Performed By: #### 2 96220 #### [place] [address] Basophils/100 WBC (Bld) 0.4 % Normal 0.0 - 2.0 [facility] Comment on above: Performed By: #### 2 07167 #### [place] [address] CBC + DIFF Normal [facility] Comment on above: Result Comment: CBC- COMPLETE BLOOD COUNT Performed By: #### 2 67829 #### [place] [address] EO # 0.22 x10EE3/UL Normal 0.00 - 0.50 [facility] Comment on above: Performed By: #### 2 39218 #### [place] [address] Eosinophils/100 WBC (Bld) 2.6 % Normal 0.0 - 7.0 [facility] Comment on above: Performed By: #### 2 40593 #### [place] [address] Erythrocyte distribution width (RBC) [Ratio] 16.8 % High 12.0 - 15.6 [facility] Comment on above: Performed By: #### 2 16770 #### [place] [address] Hematocrit (Bld) [Volume fraction] 33.9 % Low 34.0 - 46.0 [facility] Comment on above: Performed By: #### 2 14096 #### [facility],[address] [place] [address] Hemoglobin (Bld) [Mass/Vol] 11.0 g/dL Low 12.0 - 16.0 [facility] Comment on above: Performed By: #### 2 85689 #### [facility],[address] [place] [address] Lymph # 2.92 x10EE3/UL High 0.80 - 2.80 [facility] Comment on above: Performed By: #### 2 65463 #### [facility],[address] [place] [address] Lymphocytes/100 WBC (Bld) 34.9 % Normal 20.0 - 45.0 [facility] Comment on above: Performed By: #### 2 92098 #### [facility],[address] [place] [address] MANUAL DIFF N/A Normal [facility] Comment on above: Performed By: #### 2 79360 #### [facility],[address] [place], [place] [id number] MCH (RBC) [Entitic mass] 27 pg Normal 27 - 33 [facility] Comment on above: Performed By: #### 2 82611 #### [facility],[address] [place], [place] [id number] MCHC 32 X10 3 Normal 32 - 36 [facility] Comment on above: Performed By: #### 2 49731 #### [facility],[address] [place], [place] [id number] MCV (RBC) [Entitic vol] 84 fL Normal 80 - 99 [facility] Comment on above: Performed By: #### 2 30036 #### [facility],[address] [place] [address] [place]quette # 0.42 x10EE3/UL Normal 0.20 - 1.00 [facility] Comment on above: Performed By: #### 2 38643 #### [facility],[address] [place] [address] MONOS % 5.1 % Normal 0.0 - 10.0 [facility] Comment on above: Performed By: #### 2 63437 #### [facility],[address] [place] [address] Morphology Arturo (Bld) [Interp] N/A Normal [facility] Comment on above: Performed By: #### 2 79440 #### [facility],[address] [place] [address] Neut # 4.77 x10EE3/UL Normal 1.50 - 7.10 [facility] Comment on above: Performed By: #### 2 61329 #### [facility],[address] [place] [address] Neutrophils/100 WBC (Bld) 57.1 % Normal 46.0 - 76.0 [facility] Comment on above: Performed By: #### 2 25056 #### [facility],[address] [place] [address] PLATELET 276 x10EE3/UL Normal 150 - 450 [facility] Comment on above: Performed By: #### 2 88895 #### [facility],[address] [place] [address] Platelet mean volume (Bld) [Entitic vol] 8.0 fL Normal 6.6 - 10.5 [facility] Comment on above: Result Comment: AUTO MATED DIFFERENTIAL Performed By: #### 2 89793 #### [facility],[address] [place] [address] RBC 4.04 x 10EE6/UL Low 4.10 - 5.30 [facility] Comment on above: Performed By: #### 2 61476 #### [place] [address],[place] [address] WBC 8.4 x 10EE3/UL Normal 4.5 - 10.8 [facility] Comment on above: Performed By: #### 2 08531 #### [facility],[address] [place] [address] 40559 CMP with eGFRon 06-30-2024 AGE 58 years Normal [facility] Comment on above: Performed By: #### 2 50600 #### [facility],[address] [place] [address] 55274 Albumin [Mass/Vol] 3.2 g/dL Low 3.4 - 5.0 [facility] Comment on above: Performed By: #### 2 40204 #### [facility],[address] [place] [address] 20651 Albumin/Globulin [Mass ratio] 0.7 {ratio} Low 0.9 - 1.6 [facility] Comment on above: Performed By: #### 2 28662 #### [facility],[address] [place] [address] 59907 ALK PHOS 84 U/L Normal 46 - 116 [facility] Comment on above: Performed By: #### 2 52086 #### [facility],[address] [place] [address] 59898 ALT [Catalytic activity/Vol] 21 U/L Normal 16 - 63 [facility] Comment on above: Performed By: #### 2 05489 #### [facility],[address] [place] [address] 49793 Anion gap [Moles/Vol] 12 mmol/L Normal 10 - 20 [facility] Comment on above: Performed By: #### 2 92389 #### [facility],[address] [place] [address] 40194 AST [Catalytic activity/Vol] 21 U/L Normal 13 - 39 [facility] Comment on above: Performed By: #### 2 05365 #### [facility],[address] [place] [address] 56553 B/C RATIO 16 ratio Normal 0 - 30 [facility] Comment on above: Performed By: #### 2 97852 #### [facility],[address] [place] [address] 98828 Bilirubin [Mass/Vol] 0.3 mg/dL Normal 0.2 - 1.0 [facility] Comment on above: Performed By: #### 2 41997 #### [facility],[address] [place] [address] 70946 Calcium [Mass/Vol] 9.1 mg/dL Normal 8.5 - 10.1 [facility] Comment on above: Performed By: #### 2 56100 #### [facility],[address] [place] [address] 25647 Chloride [Moles/Vol] 104 mmol/L Normal 98 - 107 [facility] Comment on above: Performed By: #### 2 41848 #### [facility],[address] [place] [address] 01267 CMP with eGFR Normal [facility] Comment on above: Result Comment: COMP REHENSIVE METABOLIC PANEL Performed By: #### 2 22921 #### [facility],[address] [place] [address] 67824 CO2 [Moles/Vol] 30.4 mmol/L Normal 21.0 - 32.0 [facility] Comment on above: Performed By: #### 2 94838 #### [facility],[address] [place] [address] 21783 Creatinine [Mass/Vol] 2.05 mg/dL High 0.55 - 1.02 [facility] Comment on above: Performed By: #### 2 43714 #### [facility],[address] [place] [address] 32795 eGFR 25 ML/MINUTE Low 60 - 999 [facility] Comment on above: Performed By: #### 2 64727 #### [facility],[address] [place] [address] 52738 eGFR(AA) 30 ML/MINUTE Low 60 - 999 [facility] Comment on above: Result Comment: ACCO RDING TO THE NATIONAL KIDNEY DISEASE EDUCATION PROGRAM(NKDE), A NORMAL eGFR IS A VALUE GREATER THAN OR EQUAL TO 60 ML/MIN/1.73 SQ METERS. CHRONIC KIDNEY DISEASE: <60mL/MIN/1.73 SQ METERS KIDNEY FAILURE: <15mL/MIN/1.73 SQ METERS THIS TEST SHOULD ONLY BE USED FOR PATIENTS 18 YEARS OF AGE AND OLDER. Performed By: #### 2 14099 #### [facility],[address] [place] [address] 19119 Globulin (S) [Mass/Vol] 4.4 g/dL High 1.5 - 3.8 [facility] Comment on above: Performed By: #### 2 80888 #### [address] [address] Glucose [Mass/Vol] 151 mg/dL High 74 - 106 [facility] Comment on above: Performed By: #### 2 59737 #### [address] [address] Potassium [Moles/Vol] 3.6 mmol/L Normal 3.5 - 5.1 [facility] Comment on above: Performed By: #### 2 07919 #### [address] [address] Protein [Mass/Vol] 7.6 g/dL Normal 6.4 - 8.2 [facility] Comment on above: Performed By: #### 2 64030 #### [address] [address] Sodium [Moles/Vol] 143 mmol/L Normal 136 - 145 [facility] Comment on above: Performed By: #### 2 32869 #### [address] [address] Urea nitrogen [Mass/Vol] 33 mg/dL High 7 - 18 [facility] Comment on above: Performed By: #### 2 33559 #### [facility],[address] [place] [address] 52075 HEMOGLOBIN A1C (POM)on 06-30 Glucose [Mass/Vol] 180.0 mg/dL High 0.0 - 0.0 [facility] Comment on above: Result Comment: BLDo HEMOGLOBIN A1C REFERENCE RANGESBLDo Suggested Diagnosis HbA1c(%) HbA1C (mmol/mol Diabetic >/=6.5 >/=48 Prediabetes 5.7 - 6.4 39 - 47 Normal <5.7 <39 Performed By: #### 2 26960 #### [facility],[address] [place] [address] 06518 HbA1c (Bld) [Mass fraction] 7.9 % High 0.0 - 6.5 [facility] Comment on above: Performed By: #### 2 40634 #### [facility],[address] [place] [address] 88096 LIPID PROFILEon 06-30-2024 Cholesterol [Mass/Vol] 122 mg/dL Normal 0 - 240 [facility] Comment on above: Performed By: #### 2 14909 #### [facility],[address] [place] [address] 09944 Cholesterol in HDL [Mass/Vol] 54 mg/dL Normal 40 - 60 [facility] Comment on above: Performed By: #### 2 41619 #### [facility],[address] [place] [address] 46765 Cholesterol in LDL [Mass/Vol] 41 mg/dL Normal 0 - 129 [facility] Comment on above: Performed By: #### 2 53247 #### [facility],[address] [place] [address] 77568 Cholesterol.total/C holesterol in HDL [Mass ratio] 2.3 {ratio} Normal 0.0 - 5.0 [facility] Comment on above: Performed By: #### 2 02131 #### [facility],[address] [place] [address] 87900 Lipid 1996 panel Normal [facility] Comment on above: Result Comment: LIPI D PROFILE Performed By: #### 2 97899 #### [facility],[address] [place] [address] 38873 Triglyceride [Mass/Vol] 134 mg/dL Normal 0 - 150 [facility] Comment on above: Performed By: #### 2 62276 #### [facility],[address] [place] [address] 68583 T4-FREE (FREE THYROXINE)on 08-31-2023 Free T4 [Mass/Vol] 1.00 ng/dL Normal 0.76 - 1.46 [facility] Comment on above: Result Comment: P otential of falsely elevated results when biotin concentrations are > 10 ng/mL. Performed By: #### 2 35149 #### [facility],[address] [place] [address] 78383 TSHon 06-30-2024 TSH Qn 4.28 m[IU]/L High 0.35 - 3.74 [facility] Comment on above: Performed By: #### 2 60696 #### [facility],[address] [place] [address] 35973 FT4on 05-24-2024 Free T4 [Mass/Vol] 1.23 ng/dL Normal 0.89-1.76 [facility] Comment on above: Order Comment: 3 mon ths Result Comment: No te - New Reference Range in effect 20 Performed By: #### T SH, FT4 #### [address] [address] TSHon 05-24-2024 TSH 3.140 mIU/mL Normal 0.550-4.780 [facility] Comment on above: Order Comment: 3 mon ths Performed By: #### T SH, FT4 #### [address] [address] T4-FREE (FREE THYROXINE)on 0 02-27-2024 Free T4 [Mass/Vol] 1.14 ng/dL Normal 0.76 - 1.46 [facility] Comment on above: Result Comment: P otential of falsely elevated results when biotin concentrations are > 10 ng/mL. Performed By: #### 2 09601 #### [facility],[address] [place] [address] 48832 TSHon 02-27-2024 TSH Qn 0.97 m[IU]/L Normal 0.35 - 3.74 [facility] Comment on above: Performed By: #### 2 26653 #### [facility],[address] [place] [address] 13916 PTH, INTACT [CCL]on 02-21-20 24 PTH, Intact 79 pg/mL High 15-65 [facility] Comment on above: Result Comment: [facility] [address] [place] [address] Sivakumar Mcneil III, M.D. [id number] Performed By: #### 2 98347 #### [facility],[address] [place] [address] 95248 BMP with eGFRon 02-20-2024 AGE 58 years Normal [facility] Comment on above: Performed By: #### 2 21158 #### [facility],[address] [place] [address] 03601 Anion gap [Moles/Vol] 11 mmol/L Normal - [facility] Comment on above: Performed By: #### 2 35024 #### [address] [address] BMP with eGFR Normal [facility] Comment on above: Result Comment: BASI C METABOLIC PANEL Performed By: #### 2 61326 #### [facility],[address] [place] [address] 06869 Calcium [Mass/Vol] 9.3 mg/dL Normal 8.5 - 10.1 [facility] Comment on above: Performed By: #### 2 94657 #### [facility],[address] [place] [address] 39906 Chloride [Moles/Vol] 100 mmol/L Normal 98 - 107 [facility] Comment on above: Performed By: #### 2 04257 #### [facility],[address] [place] [address] 88064 CO2 [Moles/Vol] 32.0 mmol/L Normal 21.0 - 32.0 [facility] Comment on above: Performed By: #### 2 09202 #### [facility],[address] [place] [address] 82976 Creatinine [Mass/Vol] 2.19 mg/dL High 0.55 - 1.02 [facility] Comment on above: Performed By: #### 2 35390 #### [facility],[address] [place] [address] 01228 eGFR 23 ML/MINUTE Low 60 - 999 [facility] Comment on above: Performed By: #### 2 77306 #### [facility],[address] [place] [address] 14670 eGFR(AA) 28 ML/MINUTE Low 60 - 999 [facility] Comment on above: Result Comment: ACCO RDING TO THE NATIONAL KIDNEY DISEASE EDUCATION PROGRAM(NKDE), A NORMAL eGFR IS A VALUE GREATER THAN OR EQUAL TO 60 ML/MIN/1.73 SQ METERS. CHRONIC KIDNEY DISEASE: <60mL/MIN/1.73 SQ METERS KIDNEY FAILURE: <15mL/MIN/1.73 SQ METERS THIS TEST SHOULD ONLY BE USED FOR PATIENTS 18 YEARS OF AGE AND OLDER. Performed By: #### 2 88712 #### [facility],[address] [place] [address] 03863 Glucose [Mass/Vol] 162 mg/dL High 74 - 106 [facility] Comment on above: Performed By: #### 2 71502 #### [facility],[address] [place] [address] 88387 Potassium [Moles/Vol] 3.9 mmol/L Normal 3.5 - 5.1 [facility] Comment on above: Performed By: #### 2 82996 #### [facility],[address] [place] [address] 81356 Sodium [Moles/Vol] 139 mmol/L Normal 136 - 145 [facility] Comment on above: Performed By: #### 2 83041 #### [facility],[address] [place] [address] Urea nitrogen [Mass/Vol] 37 mg/dL High 7 - 18 [facility] Comment on above: Performed By: #### 2 91220 #### [facility],[address] [place] [address] CBC + DIFFon 02-20-2024 Baso # 0.03 x10EE3/UL Normal 0.00 - 0.10 [facility] Comment on above: Performed By: #### 2 50078 #### [facility],[address] [place] [address] 17363 Basophils/100 WBC (Bld) 0.4 % Normal 0.0 - 2.0 [facility] Comment on above: Performed By: #### 2 21664 #### [facility],[address] [place] [address] 58185 CBC + DIFF Normal [facility] Comment on above: Result Comment: CBC- COMPLETE BLOOD COUNT Performed By: #### 2 86491 #### [facility],[address] [place] [address] 77807 EO # 0.21 x10EE3/UL Normal 0.00 - 0.50 [facility] Comment on above: Performed By: #### 2 61332 #### [facility],[address] [place] [address] 01653 Eosinophils/100 WBC (Bld) 2.4 % Normal 0.0 - 7.0 [facility] Comment on above: Performed By: #### 2 22440 #### [facility],[address] [place], [place] [id number] Erythrocyte distribution width (RBC) [Ratio] 15.7 % High 12.0 - 15.6 [facility] Comment on above: Performed By: #### 2 53223 #### [facility],[address] [place] [address] Hematocrit (Bld) [Volume fraction] 33.0 % Low 34.0 - 46.0 [facility] Comment on above: Performed By: #### 2 15991 #### [facility],[address] [place] [address] Hemoglobin (Bld) [Mass/Vol] 10.7 g/dL Low 12.0 - 16.0 [facility] Comment on above: Performed By: #### 2 91788 #### [facility],[address] [place] [address] Lymph # 2.10 x10EE3/UL Normal 0.80 - 2.80 [facility] Comment on above: Performed By: #### 2 92830 #### [facility],[address] [place], [place] [id number] Lymphocytes/100 WBC (Bld) 24.3 % Normal 20.0 - 45.0 [facility] Comment on above: Performed By: #### 2 62720 #### [facility],[address] [place], [place] [id number] MANUAL DIFF N/A Normal [facility] Comment on above: Performed By: #### 2 48332 #### [facility],[address] [place] [address] 31245 MCH (RBC) [Entitic mass] 28 pg Normal 27 - 33 [facility] Comment on above: Performed By: #### 2 35441 #### [facility],[address] [place] [address] 39294 MCHC 32 X10 3 Normal 32 - 36 [facility] Comment on above: Performed By: #### 2 30085 #### [facility],[address] [place] [address] 95683 MCV (RBC) [Entitic vol] 88 fL Normal 80 - 99 [facility] Comment on above: Performed By: #### 2 40614 #### [facility],[address] [place] [address] 76196 [place]quette # 0.58 x10EE3/UL Normal 0.20 - 1.00 [facility] Comment on above: Performed By: #### 2 15420 #### [facility],[address] [place] [address] 11748 MONOS % 6.7 % Normal 0.0 - 10.0 [facility] Comment on above: Performed By: #### 2 57408 #### [facility],[address] [place] [address] 50097 Morphology Arturo (Bld) [Interp] N/A Normal [facility] Comment on above: Performed By: #### 2 87971 #### [facility],[address] [place] [address] 26863 Neut # 5.74 x10EE3/UL Normal 1.50 - 7.10 [facility] Comment on above: Performed By: #### 2 26011 #### [facility],[address] [place] [address] 38299 Neutrophils/100 WBC (Bld) 66.3 % Normal 46.0 - 76.0 [facility] Comment on above: Performed By: #### 2 27011 #### [facility],[address] [place] [address] 97307 PLATELET 283 x10EE3/UL Normal 150 - 450 [facility] Comment on above: Performed By: #### 2 49920 #### [facility],[address] [place] [address] 34369 Platelet mean volume (Bld) [Entitic vol] 8.2 fL Normal 6.6 - 10.5 [facility] Comment on above: Result Comment: AUTO MATED DIFFERENTIAL Performed By: #### 2 22737 #### [facility],[address] [place] [address] 39158 RBC 3.77 x 10EE6/UL Low 4.10 - 5.30 [facility] Comment on above: Performed By: #### 2 74392 #### [address] [address] WBC 8.7 x 10EE3/UL Normal 4.5 - 10.8 [facility] Comment on above: Performed By: #### 2 32153 #### [facility],[address] [place] [address] 84984 URIC ACIDon 02-20-2024 Urate [Mass/Vol] 4.8 mg/dL Normal 2.6 - 6.0 [facility] Comment on above: Performed By: #### 2 12954 #### [address] [address] URINE CREATININE AND PROTEIN RATIOon 02-20-2024 CREATININE UR 41.75 mg/dl Normal [facility] Comment on above: Performed By: #### 2 47895 #### [facility],[address] [place] [address] 57734 PC RATIO 0.46 mg/dL Normal 0.00 - 10.00 [facility] Comment on above: Performed By: #### 2 98850 #### [address] [address] Protein (U) [Mass/Vol] 19.10 mg/dL High 0.00 - 10.00 [facility] Comment on above: Performed By: #### 2 38199 #### [address] [address] VITAMIN D, 25 HYDROXYon 08- VitD 47.90 ng/mL Normal 30.00 - 100 [facility] Comment on above: Result Comment: 25-O HD3 indicates both endogenous production and supplementation. 25-OHD2 is an indicator of exogenous sources, such as diet or supplementation. Therapy is based on measurement of Total 25-OHD, with levels <20 ng/mL indicative of Vitamin D deficiency, while levels between 20 ng/mL and 30 ng/mL suggest insufficiency. Optimal levels are >=30ng/mL. Vitamin D, 25-OH D3 Not Established Vitamin D, 25-OH D2 Not Established Performed By: #### 2 81471 #### [place] [id number] CBC (NO DIFF)on 01-26-2024 CBC panel Auto (Bld) Normal [facility] Comment on above: Result Comment: CBC( WITHOUT DIFFERENTIAL) Performed By: #### 2 40132 #### [address] [address] Erythrocyte distribution width (RBC) [Ratio] 15.4 % Normal 12.0 - 15.6 [facility] Comment on above: Performed By: #### 2 03275 #### [facility],[address] [place] [address] Hematocrit (Bld) [Volume fraction] 32.0 % Low 34.0 - 46.0 [facility] Comment on above: Performed By: #### 2 24070 #### [facility],[address] [place] [address] Hemoglobin (Bld) [Mass/Vol] 10.4 g/dL Low 12.0 - 16.0 [facility] Comment on above: Performed By: #### 2 48029 #### [address] [address] MCH (RBC) [Entitic mass] 29 pg Normal 27 - 33 [facility] Comment on above: Performed By: #### 2 04035 #### [facility],[address] [place] [address] MCHC 32 X10 3 Normal 32 - 36 [facility] Comment on above: Performed By: #### 2 03893 #### [facility],[address] [place] [address]124 MCV (RBC) [Entitic vol] 89 fL Normal 80 - 99 [facility] Comment on above: Performed By: #### 2 62437 #### [facility],[address] [place] [address] PLATELET 230 x10EE3/UL Normal 150 - 450 [facility] Comment on above: Performed By: #### 2 56889 #### [facility],[address] [place] [address] Platelet mean volume (Bld) [Entitic vol] 8.0 fL Normal 6.6 - 10.5 [facility] Comment on above: Performed By: #### 2 48901 #### [facility],[address] [place] [address] RBC 3.59 x 10EE6/UL Low 4.10 - 5.30 [facility] Comment on above: Performed By: #### 2 15417 #### [facility],[address] [place], [place] [id number] WBC 9.4 x 10EE3/UL Normal 4.5 - 10.8 [facility] Comment on above: Performed By: #### 2 04182 #### [facility],[address] [place], [place] [id number] CMP with eGFRon 01-26-2024 AGE 58 years Normal [facility] Comment on above: Performed By: #### 2 49872 #### [facility],[address] [place] [address] Albumin [Mass/Vol] 3.1 g/dL Low 3.4 - 5.0 [facility] Comment on above: Performed By: #### 2 72759 #### [facility],[address] [place] [address] Albumin/Globulin [Mass ratio] 0.7 {ratio} Low 0.9 - 1.6 [facility] Comment on above: Performed By: #### 2 05510 #### [facility],[address] [place] [address] ALK PHOS 79 U/L Normal 46 - 116 [facility] Comment on above: Performed By: #### 2 93188 #### [facility],[address] [place] [address] 36536 ALT [Catalytic activity/Vol] 16 U/L Normal 16 - 63 [facility] Comment on above: Performed By: #### 2 76866 #### [facility],[address] [place] [address]481 Anion gap [Moles/Vol] 10 mmol/L Normal 10 - 20 [facility] Comment on above: Performed By: #### 2 40569 #### [facility],[address] [place] [address]321 AST [Catalytic activity/Vol] 19 U/L Normal 13 - 39 [facility] Comment on above: Performed By: #### 2 44009 #### [facility],[address] [place] [address] B/C RATIO 20 ratio Normal 0 - 30 [facility] Comment on above: Performed By: #### 2 80994 #### [facility],[address] [place] [address]70 Bilirubin [Mass/Vol] 0.4 mg/dL Normal 0.2 - 1.0 [facility] Comment on above: Performed By: #### 2 52961 #### [facility],[address] [place] [address] Calcium [Mass/Vol] 8.9 mg/dL Normal 8.5 - 10.1 [facility] Comment on above: Performed By: #### 2 94681 #### [facility],[address] [place] [address]54 Chloride [Moles/Vol] 102 mmol/L Normal 98 - 107 [facility] Comment on above: Performed By: #### 2 43046 #### [facility],[address] [place] [address] CMP with eGFR Normal [facility] Comment on above: Result Comment: COMP REHENSIVE METABOLIC PANEL Performed By: #### 2 40122 #### [facility],[address] [place] [address] CO2 [Moles/Vol] 29.2 mmol/L Normal 21.0 - 32.0 [facility] Comment on above: Performed By: #### 2 03970 #### [facility],[address] [place] [address] Creatinine [Mass/Vol] 1.81 mg/dL High 0.55 - 1.02 [facility] Comment on above: Performed By: #### 2 79312 #### [facility],[address] [place] [address]43 eGFR 29 ML/MINUTE Low 60 - 999 [facility] Comment on above: Performed By: #### 2 06174 #### [facility],[address] [place], [place] [id number] eGFR(AA) 35 ML/MINUTE Low 60 - 999 [facility] Comment on above: Result Comment: ACCO RDING TO THE NATIONAL KIDNEY DISEASE EDUCATION PROGRAM(NKDE), A NORMAL eGFR IS A VALUE GREATER THAN OR EQUAL TO 60 ML/MIN/1.73 SQ METERS. CHRONIC KIDNEY DISEASE: <60mL/MIN/1.73 SQ METERS KIDNEY FAILURE: <15mL/MIN/1.73 SQ METERS THIS TEST SHOULD ONLY BE USED FOR PATIENTS 18 YEARS OF AGE AND OLDER. Performed By: #### 2 98755 #### [facility],[address] [place] [address] Globulin (S) [Mass/Vol] 4.3 g/dL High 1.5 - 3.8 [facility] Comment on above: Performed By: #### 2 59136 #### [facility],[address] [place], [place] [id number] Glucose [Mass/Vol] 171 mg/dL High 74 - 106 [facility] Comment on above: Performed By: #### 2 75600 #### [facility],[address] [place] [address] Potassium [Moles/Vol] 3.9 mmol/L Normal 3.5 - 5.1 [facility] Comment on above: Performed By: #### 2 42189 #### [facility],[address] [place] [address] Protein [Mass/Vol] 7.4 g/dL Normal 6.4 - 8.2 [facility] Comment on above: Performed By: #### 2 19543 #### [facility],[address] [place] [address] Sodium [Moles/Vol] 137 mmol/L Normal 136 - 145 [facility] Comment on above: Performed By: #### 2 47670 #### [facility],[address] [place] [address]84 Urea nitrogen [Mass/Vol] 37 mg/dL High 7 - 18 [facility] Comment on above: Performed By: #### 2 12586 #### [facility],[address] [place] [address] NM CARDIAC STRESS (SPECT) W/ LEXISCANon 01-26-2024 NM CARDIAC STRESS (SPECT) W/[address] [address] Patient: ALBA BISWAS Phone#: : 1965 Age: 58 Gender: F Pt. Type: Out Account: [id number] Location: [facility] Ordering: ANTONIO SALVADOR Exam Date: 01/26/2024/6:42 Family Phys: Charge Code: [id number] Physician: Cochran Order #: [id number] Dose#: PROCEDURE: CARDIAC STRESS SPECT WITH LEXISCAN HISTORY: Patient is a 58-year-old female with history of diabetes COMPARISON: None. INDICATIONS: Shortness of breath TECHNIQUE: Resting and post Lexiscan stress SPECT images acquired in the horizontal long, vertical long and short axis views. Protocol: Lexiscan Duration: 0.4mg over 10 seconds Peak Heart Rate: 106 bpm, which is 65% of maximum predicted heart rate. Workload: not applicable REST DOSE: 14.8 mCi Sestamibi. STRESS DOSE: 44.6 mCi Sestamibi. INTERPRETATION: Resting Images: Resting images showed mild to moderate perfusion defect in the basal to distal inferior wall and mid to distal anteroseptal wall which improved with stress. Post Lexiscan stress Images: Post Lexiscan images showed small area of mild perfusion defect in the distal anteroseptal wall improved from resting images. There is no associated wall motion abnormality to suggest infarct. Perfusion defect is likely from breast attenuation artifact as seen in rotating planar images. Gated SPECT/wall motion: Gated SPECT showed calculated ejection fraction of 75% with normal wall motion. TID ratio is 0.96 CONCLUSION: 1. Nuclear stress test showed no conclusive evidence of reversible ischemia or infarct. 2. Calculated ejection fraction is 75% with normal wall motion. 3. TID ratio is normal. Dictated by: ANTONIO SALVADOR MD on 01/26/2024 at 11:01 Continued Report - Page 2 of 2 Patient: ALBA BISWAS Phone#: : 1965 Age: 58 Gender: F Pt. Type: Out Account: [id number] Location: [facility] Ordering: ANTONIO SALVADOR Exam Date: 01/26/2024/6:42 Family Phys: Charge Code: [id number] Physician: Cochran Order #: [id number] Dose#: Approved by: ANTONIO SALVADOR MD on 01/26/2024 at 11:10 Normal [facility] NM EXERCISE STRESS TEST (W/C ARDIAC STUDYon 01-26-2024 NM EXERCISE STRESS TEST (W/CARDIAC STUDY [place] [address] Patient: ALBA BISWAS Phone#: : 1965 Age: 58 Gender: F Pt. Type: Out Account: [id number] Location: 052 Ordering: ANTONIO SALVADOR Exam Date: 01/26/2024/6:42 Family Phys: Charge Code: [id number] Physician: Cochran Order #: [id number] Dose#: PROCEDURE: ELECTROCARDIOGRAM STRESS TEST HISTORY: Patient is a 58-year-old female with history of diabetes, hypertension, severe aortic stenosis. COMPARISON: None. INDICATIONS: Chest pain and shortness of breath TECHNIQUE: Electrocardiogram stress test was performed using the protocol listed below. STRESS RESULTS: Protocol: Lexiscan Duration: 0.4mg over 10 seconds Reason for termination: infusion complete. Resting Heart Rate: 86 bpm. Resting Blood Pressure: 132/79 mmHg Peak Heart Rate: 106 which is 65% of maximum predicted heart rate Blood pressure with Lexiscan With Lexiscan infusion blood pressure decreased to138/82 Workload: 1.0 METs. Symptoms with stress: Patient complained of left arm numbness and shortness of breath with regadenoson which improved during recovery. EKG Data EKG at Baseline: EKG at baseline showed sinus rhythm at 86 BPM. Right bundle branch block. EKG with Stress: EKG with stress showed sinus rhythm at 99 BPM. There are no ST or T-wave changes from baseline to suggest inducible ischemia. CONCLUSION: 1. Patient complained of left arm numbness and shortness of breath with regadenoson which improved during recovery. 2. Patient had normal physiologic response to stress. 3. Stress EKG is negative for inducible ischemia 4. Nuclear images will be reported separately. [place] [address] Patient: ALBA BISWAS Phone#: : 1965 Age: 58 Gender: F Pt. Type: Out Account: [id number] Location: 052 Ordering: ANTONIO SALVADOR Exam Date: 01/26/2024/6:42 Family Phys: Charge Code: [id number] Physician: Cochran Order #: [id number] Dose#: Dictated by: ANTONIO SALVADOR MD on 01/26/2024 at 9:28 Approved by: ANTONIO SALVADOR MD on 01/26/2024 at 9:40 Normal [facility] .GFRon 10-16-2023 GFR Non- 24 ml/min/1.73sqm Normal [facility] ([place]) Comment on above: Result Comment: GFR Population mean for , Non- Americans Ages 20-29 = 116 mL/min/1.73 sq.m. Ages 30-39 = 107 mL/min/1.73 sq.m. Ages 40-49 = 99 mL/min/1.73 sq.m. Ages 50-59 = 93 mL/min/1.73 sq.m. Ages 60-69 = 85 mL/min/1.73 sq.m. Ages 70+ = 75 mL/min/1.73 sq.m. Chronic Kidney Disease: Less than 60 mL/min/1.73 square meters End Stage Renal Disease: Less than 15 mL/min/1.73 square meters Performed By: #### C MP, TSH, FT4, GFR, FT3 #### [address] [address] GFR 29 ml/min/1.73sqm Normal [facility] ([place]) Comment on above: Result Comment: GFR Population mean for , Non- Americans Ages 20-29 = 116 mL/min/1.73 sq.m. Ages 30-39 = 107 mL/min/1.73 sq.m. Ages 40-49 = 99 mL/min/1.73 sq.m. Ages 50-59 = 93 mL/min/1.73 sq.m. Ages 60-69 = 85 mL/min/1.73 sq.m. Ages 70+ = 75 mL/min/1.73 sq.m. Chronic Kidney Disease: Less than 60 mL/min/1.73 square meters End Stage Renal Disease: Less than 15 mL/min/1.73 square meters Performed By: #### C MP, TSH, FT4, GFR, FT3 #### [address] [address] CMPon 10-16-2023 Albumin Level 3.3 G/dL Normal 3.2-4.8 [facility] ([place]) Comment on above: Performed By: #### C MP, TSH, FT4, GFR, FT3 #### [place] [id number] Albumin/Globulin [Mass ratio] 0.8 {ratio} Low 0.9-1.6 [facility] ([place]) Comment on above: Performed By: #### C MP, TSH, FT4, GFR, FT3 #### [place] [id number] ALP [Catalytic activity/Vol] 98 U/L Normal 38-126 [facility] ([place] Comment on above: Performed By: #### C MP, TSH, FT4, GFR, FT3 #### [place] [id number] ALT [Catalytic activity/Vol] 21 U/L Normal 10-49 [facility] ([place] Comment on above: Performed By: #### C MP, TSH, FT4, GFR, FT3 #### [place] [id number] AST [Catalytic activity/Vol] 22 U/L Normal 8-34 [facility] ([place] Comment on above: Performed By: #### C MP, TSH, FT4, GFR, FT3 #### [place] [id number] Bili Total 0.30 mg/dL Normal 0.20-1.20 [facility] ([place]) Comment on above: Result Comment: Use of this assay is not recommended for patients undergoing treatment with eltrombopag due to the potential for falsely elevated results. Performed By: #### C MP, TSH, FT4, GFR, FT3 #### [place] [id number] BUN/Creatinine Ratio 21.3 ratio Normal 10.0-22.0 [facility] ([place] Comment on above: Performed By: #### C MP, TSH, FT4, GFR, FT3 #### [place] [address] Calcium [Mass/Vol] 9.7 mg/dL Normal 8.7-10.4 [facility] ([place]) Comment on above: Performed By: #### C MP, TSH, FT4, GFR, FT3 #### [address] [address] Chloride [Moles/Vol] 101 mmol/L Normal 98-110 [facility] ([place] Comment on above: Performed By: #### C MP, TSH, FT4, GFR, FT3 #### [address] [address] CO2 [Moles/Vol] 31 mmol/L Normal 22-32 [facility] ([place]) Comment on above: Performed By: #### C MP, TSH, FT4, GFR, FT3 #### [address] [address] Creatinine [Mass/Vol] 2.11 mg/dL High 0.50-1.20 [facility] ([place]) Comment on above: Performed By: #### C MP, TSH, FT4, GFR, FT3 #### [address] [address] Electrolyte Balance 5.0 mEq/L Normal 4.0-15.0 [facility] ([place]) Comment on above: Performed By: #### C MP, TSH, FT4, GFR, FT3 #### [address] [address] Globulin 3.9 G/dL High 1.5-3.8 [facility] ([place] Comment on above: Performed By: #### C MP, TSH, FT4, GFR, FT3 #### [address] [address] Glucose [Mass/Vol] 299 mg/dL High 70-110 [facility] ([place]) Comment on above: Performed By: #### C MP, TSH, FT4, GFR, FT3 #### [address] [address] Potassium [Moles/Vol] 4.3 mmol/L Normal 3.5-5.0 [facility] ([place] Comment on above: Performed By: #### C MP, TSH, FT4, GFR, FT3 #### [address] [address] Sodium [Moles/Vol] 137 mmol/L Normal 136-145 [facility] ([place]) Comment on above: Performed By: #### C MP, TSH, FT4, GFR, FT3 #### [address] [address] Total Protein 7.2 G/dL Normal 5.7-8.2 [facility] ([place]) Comment on above: Result Comment: No te - New Reference Range in effect 20 Performed By: #### C MP, TSH, FT4, GFR, FT3 #### [address] [address] Urea nitrogen [Mass/Vol] 45.0 mg/dL High 8.0-22.0 [facility] ([place]) Comment on above: Performed By: #### C MP, TSH, FT4, GFR, FT3 #### [place] [address] FT3on 10-16-2023 Free T3 [Mass/Vol] 2.57 pg/mL Normal 2.30-4.20 [facility] ([place]) Comment on above: Performed By: #### C MP, TSH, FT4, GFR, FT3 #### [address] [address] FT4on 10-16-2023 Free T4 [Mass/Vol] 1.05 ng/dL Normal 0.89-1.76 [facility] ([place]) Comment on above: Result Comment: No te - New Reference Range in effect 20 Performed By: #### C MP, TSH, FT4, GFR, FT3 #### [place] [address] TSHon 10-16-2023 TSH 1.066 mIU/mL Normal 0.550-4.780 [facility] ([place]) Comment on above: Order Comment: DUE N OW Result Comment: No te - New Reference Range in effect 20 Performed By: #### C MP, TSH, FT4, GFR, FT3 #### [address] [address] .Auto Diffon 09-02-2023 Basophil, Absolute 0.1 10 3/mcL Normal 0.0-0.3 [facility] ([place]) Comment on above: Performed By: #### F T3, INSLN, VIDH, CMP, GFR, LIPID, CBC, ADIFF, ANEU, A1C, TSH, FT4, CPEP #### [address] [address] Basophils/100 WBC (Bld) 1.1 % Normal 0.0-2.5 [facility] ([place]) Comment on above: Performed By: #### F T3, INSLN, VIDH, CMP, GFR, LIPID, CBC, ADIFF, ANEU, A1C, TSH, FT4, CPEP #### [address] [address] Eosinophil, Absolute 0.3 10 3/mcL Normal 0.0-0.7 [facility] ([place] Comment on above: Performed By: #### F T3, INSLN, VIDH, CMP, GFR, LIPID, CBC, ADIFF, ANEU, A1C, TSH, FT4, CPEP #### [address] [address] Eosinophils/100 WBC (Bld) 3.1 % Normal 0.0-6.0 [facility] ([place] Comment on above: Performed By: #### F T3, INSLN, VIDH, CMP, GFR, LIPID, CBC, ADIFF, ANEU, A1C, TSH, FT4, CPEP #### [address] [address] Lymphocyte, Absolute 2.8 10 3/mcL Normal 0.9-4.3 [facility] ([place] Comment on above: Performed By: #### F T3, INSLN, VIDH, CMP, GFR, LIPID, CBC, ADIFF, ANEU, A1C, TSH, FT4, CPEP #### [address] [address] Lymphocytes/100 WBC (Bld) 31.9 % Normal 20.0-40.0 [facility] ([place] Comment on above: Performed By: #### F T3, INSLN, VIDH, CMP, GFR, LIPID, CBC, ADIFF, ANEU, A1C, TSH, FT4, CPEP #### [address] [address] Monocyte, Absolute 0.5 10 3/mcL Normal 0.1-1.4 [facility] ([place]) Comment on above: Performed By: #### F T3, INSLN, VIDH, CMP, GFR, LIPID, CBC, ADIFF, ANEU, A1C, TSH, FT4, CPEP #### [address] [address] Monocytes/100 WBC (Bld) 5.3 % Normal 2.0-13.0 [facility] ([place] Comment on above: Performed By: #### F T3, INSLN, VIDH, CMP, GFR, LIPID, CBC, ADIFF, ANEU, A1C, TSH, FT4, CPEP #### [address] [address] Neutrophils/100 WBC (Bld) 58.6 % Normal 50.0-75.0 [facility] ([place] Comment on above: Performed By: #### F T3, INSLN, VIDH, CMP, GFR, LIPID, CBC, ADIFF, ANEU, A1C, TSH, FT4, CPEP #### [address] [address] .GFRon 09-02-2023 GFR 37 ml/min/1.73sqm Normal [facility] ([place]) Comment on above: Result Comment: GFR Population mean for , Non- Americans Ages 20-29 = 116 mL/min/1.73 sq.m. Ages 30-39 = 107 mL/min/1.73 sq.m. Ages 40-49 = 99 mL/min/1.73 sq.m. Ages 50-59 = 93 mL/min/1.73 sq.m. Ages 60-69 = 85 mL/min/1.73 sq.m. Ages 70+ = 75 mL/min/1.73 sq.m. Chronic Kidney Disease: Less than 60 mL/min/1.73 square meters End Stage Renal Disease: Less than 15 mL/min/1.73 square meters Performed By: #### C MP, TSH, FT4, GFR, FT3 #### [address] [address] GFR Non- 31 ml/min/1.73sqm Normal [facility] ([place] Comment on above: Result Comment: GFR Population mean for , Non- Americans Ages 20-29 = 116 mL/min/1.73 sq.m. Ages 30-39 = 107 mL/min/1.73 sq.m. Ages 40-49 = 99 mL/min/1.73 sq.m. Ages 50-59 = 93 mL/min/1.73 sq.m. Ages 60-69 = 85 mL/min/1.73 sq.m. Ages 70+ = 75 mL/min/1.73 sq.m. Chronic Kidney Disease: Less than 60 mL/min/1.73 square meters End Stage Renal Disease: Less than 15 mL/min/1.73 square meters Performed By: #### C MP, TSH, FT4, GFR, FT3 #### [place] [address] .NEUABSon 09-02-2023 Neutrophil, Absolute 5.2 10 3/mcL Normal 2.3-8.1 [facility] ([place] Comment on above: Performed By: #### F T3, INSLN, VIDH, CMP, GFR, LIPID, CBC, ADIFF, ANEU, A1C, TSH, FT4, CPEP #### [place] [id number] A1Con 09-02-2023 HbA1c (Bld) [Mass fraction] 9.9 % High 4.0-6.0 [facility] ([place] Comment on above: Performed By: #### F T3, INSLN, VIDH, CMP, GFR, LIPID, CBC, ADIFF, ANEU, A1C, TSH, FT4, CPEP #### [place] [id number] CBCon 09-02-2023 Erythrocyte distribution width (RBC) [Ratio] 17.3 % High 11.5-15.5 [facility] ([place] Comment on above: Performed By: #### F T3, INSLN, VIDH, CMP, GFR, LIPID, CBC, ADIFF, ANEU, A1C, TSH, FT4, CPEP #### [place] [address] Hematocrit (Bld) [Volume fraction] 34.4 % Normal 34.0-46.0 [facility] ([place] Comment on above: Performed By: #### F T3, INSLN, VIDH, CMP, GFR, LIPID, CBC, ADIFF, ANEU, A1C, TSH, FT4, CPEP #### [place] [address] Hgb 10.9 G/dL Low 12.0-16.0 [facility] ([place] Comment on above: Performed By: #### F T3, INSLN, VIDH, CMP, GFR, LIPID, CBC, ADIFF, ANEU, A1C, TSH, FT4, CPEP #### [place] [address] MCH (RBC) [Entitic mass] 28.3 pg Normal 27.0-33.0 [facility] ([place] Comment on above: Performed By: #### F T3, INSLN, VIDH, CMP, GFR, LIPID, CBC, ADIFF, ANEU, A1C, TSH, FT4, CPEP #### [place] [address] MCHC 31.7 G/dL Low 32.0-36.0 [facility] ([place] Comment on above: Performed By: #### F T3, INSLN, VIDH, CMP, GFR, LIPID, CBC, ADIFF, ANEU, A1C, TSH, FT4, CPEP #### [place] [address] MCV (RBC) [Entitic vol] 89.3 fL Normal 80.0-99.0 [facility] ([place] Comment on above: Performed By: #### F T3, INSLN, VIDH, CMP, GFR, LIPID, CBC, ADIFF, ANEU, A1C, TSH, FT4, CPEP #### [place] [address] Platelet 229 10 3/mcL Normal 150-450 [facility] ([place]) Comment on above: Performed By: #### F T3, INSLN, VIDH, CMP, GFR, LIPID, CBC, ADIFF, ANEU, A1C, TSH, FT4, CPEP #### [address] [address] Platelet mean volume (Bld) [Entitic vol] 9.3 fL Normal 6.6-10.5 [facility] ([place] Comment on above: Performed By: #### F T3, INSLN, VIDH, CMP, GFR, LIPID, CBC, ADIFF, ANEU, A1C, TSH, FT4, CPEP #### [address] [address] RBC 3.85 10 6/mcL Low 4.10-5.30 [facility] ([place] Comment on above: Performed By: #### F T3, INSLN, VIDH, CMP, GFR, LIPID, CBC, ADIFF, ANEU, A1C, TSH, FT4, CPEP #### [place] [id number] WBC 8.8 10 3/mcL Normal 4.5-10.8 [facility] ([place] Comment on above: Performed By: #### F T3, INSLN, VIDH, CMP, GFR, LIPID, CBC, ADIFF, ANEU, A1C, TSH, FT4, CPEP #### [address] [address] CMPon 09-02-2023 Albumin Level 3.6 G/dL Normal 3.2-4.8 [facility] ([place] Comment on above: Performed By: #### C MP, TSH, FT4, GFR, FT3 #### [place] [address] Albumin/Globulin [Mass ratio] 1.0 {ratio} Normal 0.9-1.6 [facility] ([place]) Comment on above: Performed By: #### C MP, TSH, FT4, GFR, FT3 #### [place] [id number] ALP [Catalytic activity/Vol] 101 U/L Normal 38-126 [facility] ([place] Comment on above: Performed By: #### C MP, TSH, FT4, GFR, FT3 #### [address] [address] ALT [Catalytic activity/Vol] 59 U/L High 10-49 [facility] ([place] Comment on above: Performed By: #### C MP, TSH, FT4, GFR, FT3 #### [address] [address] AST [Catalytic activity/Vol] 35 U/L High 8-34 [facility] ([place] Comment on above: Performed By: #### C MP, TSH, FT4, GFR, FT3 #### [address] [address] Bili Total 0.30 mg/dL Normal 0.20-1.20 [facility] ([place] Comment on above: Result Comment: Use of this assay is not recommended for patients undergoing treatment with eltrombopag due to the potential for falsely elevated results. Performed By: #### C MP, TSH, FT4, GFR, FT3 #### [address] [address] BUN/Creatinine Ratio 25.1 ratio High 10.0-22.0 [facility] ([place] Comment on above: Performed By: #### C MP, TSH, FT4, GFR, FT3 #### [address] [address] Calcium [Mass/Vol] 9.6 mg/dL Normal 8.7-10.4 [facility] ([place]) Comment on above: Performed By: #### C MP, TSH, FT4, GFR, FT3 #### [address] [address] Chloride [Moles/Vol] 99 mmol/L Normal 98-110 [facility] ([place] Comment on above: Performed By: #### C MP, TSH, FT4, GFR, FT3 #### [address] [address] CO2 [Moles/Vol] 27 mmol/L Normal 22-32 [facility] ([place]) Comment on above: Performed By: #### C MP, TSH, FT4, GFR, FT3 #### [address] [address] Creatinine [Mass/Vol] 1.71 mg/dL High 0.50-1.20 [facility] ([place]) Comment on above: Performed By: #### C MP, TSH, FT4, GFR, FT3 #### [place] [id number] Electrolyte Balance 8.0 mEq/L Normal 4.0-15.0 [facility] ([place]) Comment on above: Performed By: #### C MP, TSH, FT4, GFR, FT3 #### [place] [id number] Globulin 3.5 G/dL Normal 1.5-3.8 [facility] ([place]) Comment on above: Performed By: #### C MP, TSH, FT4, GFR, FT3 #### [place] [address] Glucose [Mass/Vol] 424 mg/dL Critically abnormal 70-110 [facility] ([place]) Comment on above: Performed By: #### C MP, TSH, FT4, GFR, FT3 #### [address] [address] Potassium [Moles/Vol] 4.3 mmol/L Normal 3.5-5.0 [facility] ([place]) Comment on above: Performed By: #### C MP, TSH, FT4, GFR, FT3 #### [address] [address] Sodium [Moles/Vol] 134 mmol/L Low 136-145 [facility] ([place]) Comment on above: Performed By: #### C MP, TSH, FT4, GFR, FT3 #### [place] [id number] Total Protein 7.1 G/dL Normal 5.7-8.2 [facility] ([place]) Comment on above: Result Comment: No te - New Reference Range in effect 20 Performed By: #### C MP, TSH, FT4, GFR, FT3 #### [place] [address] Urea nitrogen [Mass/Vol] 43.0 mg/dL High 8.0-22.0 [facility] ([place]) Comment on above: Performed By: #### C MP, TSH, FT4, GFR, FT3 #### [place] [address] CPEPon 09-02-2023 C-Peptide 10.41 ng/mL High 0.81-3.85 [facility] ([place]) Comment on above: Performed By: #### C MP, TSH, FT4, GFR, FT3 #### [place] [address] FT3on 09-02-2023 Free T3 [Mass/Vol] 3.10 pg/mL Normal 2.30-4.20 [facility] ([place]) Comment on above: Performed By: #### C MP, TSH, FT4, GFR, FT3 #### [place] [address] FT4on 09-02-2023 Free T4 [Mass/Vol] 1.81 ng/dL High 0.89-1.76 [facility] ([place]) Comment on above: Result Comment: No te - New Reference Range in effect 20 Performed By: #### C MP, TSH, FT4, GFR, FT3 #### [place] [address] INSLNon 09-02-2023 Insulin 29.67 munit/L Normal 2.60-37.60 [facility] ([place]) Comment on above: Performed By: #### C MP, TSH, FT4, GFR, FT3 #### [place] [address] LIPIDon 09-02-2023 Cholesterol [Mass/Vol] 186 mg/dL Normal 50-199 [facility] ([place]) Comment on above: Result Comment: Chol esterol Reference Interval: Less than 200 Desirable 200-239 Borderline high risk 240 and above High risk Performed By: #### C MP, TSH, FT4, GFR, FT3 #### [address] [address] Cholesterol in HDL [Mass/Vol] 34 mg/dL Low 40-59 [facility] ([place] Comment on above: Performed By: #### C MP, TSH, FT4, GFR, FT3 #### [address] [address] Cholesterol in LDL [Mass/Vol] 80 mg/dL Normal 0-129 [facility] ([place] Comment on above: Performed By: #### C MP, TSH, FT4, GFR, FT3 #### [address] [address] Triglyceride [Mass/Vol] 359 mg/dL High 3-149 [facility] ([place] Comment on above: Performed By: #### C MP, TSH, FT4, GFR, FT3 #### [place] [id number] MALBRon 09-02-2023 U Creatinine 27.4 mg/dL Normal [facility] ([place]) Comment on above: Performed By: #### M ALBR #### [address] [address] U Microalb <300 Normal [facility] ([place]) Comment on above: Performed By: #### M ALBR #### [address] [address] U Ratio Alb/Cre Unable to Calculate Normal 0.0-24.9 [facility] ([place]) Comment on above: Result Comment: Unab le to calculate this test result accurately. Results used to calculate this test are outside the reportable range. Performed By: #### M ALBR #### [place] [id number] TSHon 09-02-2023 TSH 0.017 mIU/mL Low 0.550-4.780 [facility] ([place]) Comment on above: Result Comment: No te - New Reference Range in effect 20 Performed By: #### C MP, TSH, FT4, GFR, FT3 #### [address] [address] VIDHon 09-02-2023 Vit. D 25-Hydroxy 51.2 ng/mL Normal [facility] ([place]) Comment on above: Result Comment: Inte rpretive Values Based on Total 25(OH)D: Severe Deficiency <20 ng/mL Mild to Moderate Deficiency 20-30 ng/mL Optimum Levels 30-100 ng/mL Toxicity Possible >100 ng/mL Performed By: #### C MP, TSH, FT4, GFR, FT3 #### [address] [address] Miscellaneous Lab Procedureo n 07-18-2023 MISC LAB TEST Normal [facility] Comment on above: Order Comment: #[phone] [employer] Result Comment: [phone] 6+OXYCODONE-BUND (ng/mL) DRUG RESULT SCREEN CUTOFF ____ Amphetamines,Urine Negative ng/mL 1000 Amphetamine test includes Amphetamine and Methamphetamine. Barbiturates Negative ng/mL 200 Benzodiazepines Negative ng/mL 200 Cannabinoid Negative ng/mL 20 Cocaine (Metab) Negative ng/mL 300 Opiates Negative ng/mL 300 Opiates test includes Codeine, Morphine, Hydromorphone, Hydrocodone. Oxycodone/Oxymorphone,Urine Negative ng/mL 300 Test includes Oxycodone and Oxymorphone. TESTING PERFORMED AT [facility]. ORIGINAL REPORT ON FILE IN LAB CONTAINS ADDITIONAL TEST SITE INFORMATION. Performed By: #### L 801.1541, L505.5000, L505.6140 #### [facility] [address] [place], [address] BUP Urine Drug Screenon 06-21 BUP DRG SCREEN Negative Normal <10 ng/mL [facility] Comment on above: Order Comment: U Performed By: #### L 801.1541, L505.5000, L505.6140 #### [facility] [address] [place], [address] DRUG CONFIRM Normal [facility] Comment on above: Order Comment: U Result Comment: CONF IRMATORY TESTING FOR ALL POSITIVE URINE DRUG SCREEN RESULTS WILL ONLY BE SENT OUT UPON PHYSICIAN ORDER. The results of Urine Drug Screen methods provide only preliminary analytical test results. A more specific alternate chemical method must be used in order to obtain a confirmed analytical result. Gas chromatography/mass spectrometery (GC/MS) is the preferred confirmatory method. Clinical consideration and professional judgement should be applied to any drug of abuse test result, particularly when preliminary positive results are used. Performed By: #### L 801.1541, L505.5000, L505.6140 #### [facility] [address] [place], [address] Urine Drug Screen (VISTA)on 07-16-2023 AMPHETAMINES Negative Normal <1000 ng/mL [facility] Comment on above: Order Comment: U Performed By: #### L 801.1541, L505.5000, L505.6140 #### [facility] [address] [place], [address] BARBITIURATES Negative Normal < 200 ng/mL [facility] Comment on above: Order Comment: U Performed By: #### L 801.1541, L505.5000, L505.6140 #### [facility] [address] [place], [address] BENZODIAZIPINE Negative Normal < 200 ng/mL [facility] Comment on above: Order Comment: U Performed By: #### L 801.1541, L505.5000, L505.6140 #### [facility] [address] [place], [address] COCAINE Negative Normal < 300 ng/mL [facility] Comment on above: Order Comment: U Performed By: #### L 801.1541, L505.5000, L505.6140 #### [facility] [address] [place], [address] ECSTACY Negative Normal < 500 ng/mL [facility] Comment on above: Order Comment: U Performed By: #### L 801.1541, L505.5000, L505.6140 #### [facility] [address] [place], [address] METHADONE Negative Normal < 300 ng/mL [facility] Comment on above: Order Comment: U Performed By: #### L 801.1541, L505.5000, L505.6140 #### [facility] [address] [place], [address] OPIATES Negative Normal < 300 ng/mL [facility] Comment on above: Order Comment: U Performed By: #### L 801.1541, L505.5000, L505.6140 #### [facility] [address] [place], [address] PCP Negative Normal < 25 ng/mL [facility] Comment on above: Order Comment: U Performed By: #### L 801.1541, L505.5000, L505.6140 #### [facility] [address] [place], [address] THC Negative Normal < 50 ng/mL [facility] Comment on above: Order Comment: U Performed By: #### L 801.1541, L505.5000, L505.6140 #### [facility] [address] [place], [address] VISTA UDS PH 4 Normal [facility] Comment on above: Order Comment: U Performed By: #### L 801.1541, L505.5000, L505.6140 #### [facility] [address] [place], [address] Spine Cervical (Routine)on 08-31-2022 Spine Cervical (Routine) [facility] Imaging Services [address] [place] [address] Spine Cervical (Routine) MR#: [id number] Acct: [id number] Name: ALBA BISWAS Rep #: [id number] : 1965 F 57 From: Eligio Padilla MD PCP: Dr. Maritza Villalta MD Status: REG [facility] Study: Spine Cervical (Routine) Date of Exam: Exam# [id number] Ordering Dr: Christiano Small MD [id number] EXAM: MR CERVICAL SPINE WITHOUT INTRAVENOUS CONTRAST CLINICAL INDICATION: CERVICAL RADICULOPATHY TECHNIQUE: Multiplanar and multisequence MR images of the cervical spine without intravenous contrast were performed. COMPARISON: MR Cervical Spine dated 03/10/2020 FINDINGS: VERTEBRAE: Normal. Normal vertebral bodies and posterior elements. Normal alignment. Normal craniocervical junction and cervicothoracic junction. No spondylolisthesis. There is preservation of the normal cervical lordosis. SPINAL CORD: Unremarkable in signal and morphology. SOFT TISSUES: No prevertebral soft tissue swelling. LYMPH NODES: Normal. There is no cervical adenopathy. DISCS/SPINAL CANAL/NEURAL FORAMINA: C2-C3: Normal. Normal disc height and morphology. Normal spinal canal. Normal neuroforamina. C3-C4: Normal. Normal disc height and morphology. Normal spinal canal. Normal neuroforamina. C4-C5: Normal disc height and morphology. Posterior ligamentous redundancy again noted causing mild impingement on the posterior portion of the thecal sac. Normal neuroforamina. C5-C6: Normal disc height and morphology. Posterior ligamentous redundancy results in mild compression of the dorsal thecal sac. Normal neuroforamina. C6-C7: Normal. Normal disc height and morphology. Normal spinal canal. Normal neuroforamina. C7-T1: Normal. Normal disc height and morphology. Normal spinal canal. Normal neuroforamina. 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 No significant interval change. Electronically Signed: Eligio Padilla MD at 16:54 EST , CC: Dr. Christiano Small MD; Dr. Maritza Villalta MD Hand Sign Writer: Signed Normal [facility] Upper Ext Joint Only(Routine )on 06-30-2023 Upper Ext Joint Only(Routine) [facility] Imaging Services [address] [place] [address] Upper Ext Joint Only(Routine) MR#: [id number] Acct: [id number] Name: ALBA BISWAS Rep #: [id number] : 1965 F 57 From: Bill Tristan MD PCP: Dr. Maritza Villalta MD Status: REG CLI Study: Upper Ext Joint Only(Routine) Date of Exam: 08/31/22 Exam# [id number] Ordering Dr: Louis Townsend MD [id number] STUDY: MRI RIGHT SHOULDER REASON FOR EXAM: Female, 57 years old. Pain, rule out cuff tear. TECHNIQUE: Standardized fat and water weighted pulse sequences were obtained in all 3 orthogonal planes. COMPARISON: Right shoulder radiographs dated 05/29/2023. FINDINGS: There is a moderate grade partial thickness articular surface tear of the distal supraspinatus tendon insertion, overall measuring 4 mm in length (coronal T2 series 6 image 12) and 5 mm in width (sagittal T2 series 7 images 13-14). There is mild infraspinatus tendinosis. Normal subscapularis tendon. Normal teres minor tendon. Normal supraspinatus muscle. Normal infraspinatus muscle. Normal subscapularis muscle. Normal teres minor muscle. Normal glenohumeral articulation. There is enthesopathic subcortical cyst formation of the greater tuberosity of the humeral head. Normal biceps labral complex. Normal intracapsular long biceps tendon. Normal labrum. Normal capsulo-ligamentous complex. Normal rotator interval. There is hypertrophic acromioclavicular arthrosis, with inferior osteophyte formation, with minimal effacement of the supraspinatus myotendinous junction (coronal T2 series 6 image 14). There is a Type II morphology (curved), with a neutral orientation. There is a small amount of subacromial-subdeltoi d bursal fluid. Normal visualized coracohumeral and coracoacromial ligaments. Normal quadrilateral space. Normal axillary space. Normal deltoid muscle. Normal trapezius muscle. MRI/Upper Ext Joint Only(Routine) IMPRESSION: 4 x 5 mm moderate grade partial thickness articular surface tear of the distal supraspinatus tendon insertion. Mild infraspinatus tendinosis. Hypertrophic acromioclavicular arthrosis, with inferior osteophyte formation, with minimal effacement of the supraspinatus myotendinous junction. Mild subacromial-subdeltoi d bursitis. Electronically Signed: Bill Tristan MD at 15:21 EST Reading Location ID and State: [address] [place] [address] , Service support , CC: Dr. Louis Townsend MD; Dr. Maritza Villalta MD Hand Sign Writer: Signed Normal [facility] Orthopedic Visit Reporton Orthopedic Visit Report [facility] [address] [place] [address] OFFICE VISIT Date of Service: 05/29/23 MR#: [id number] Acct: [id number] Name: ALBA BISWAS Rep #: [id number] : 1965 Provider: Dr. Louis yousif MD Age/Sex: 57/F Location: [email or web address] Status: Signed Intake Vital Signs 04/02/21 11:10 05/29/23 13:40 Height 5 ft 3 in 5 ft 3 in Weight: 261 lb BMI 46.2 Intake Visit Reasons: RIGHT SHOULDER Accompanied by: Self Is patient in pain?: Yes Allergies Penicillins Allergy (Severe, Verified 05/29/23 13:41) aspirin Adverse Reaction (Mild, Verified 05/29/23 13:41) rash levofloxacin [From Levaquin] Adverse Reaction (Mild, Verified 05/29/23 13:41) rash rofecoxib [From Vioxx] Adverse Reaction (Mild, Verified 05/29/23 13:41) rash Medications blood sugar diagnostic #10 ea 04/02/21 [History Confirmed 05/29/23] buprenorphine HCl 150 mcg buccal film ea buccal 04/02/21 [History Confirmed 05/29/23] cetirizine 10 mg tablet ea PO 04/02/21 [History Confirmed 05/29/23] cyclobenzaprine 5 mg tablet ea PO 04/02/21 [History Confirmed 05/29/23] fluticasone propionate 50 mcg/actuation nasal spray,suspension gm intranasal 04/02/21 [History Confirmed 05/29/23] furosemide 40 mg tablet ea PO 04/02/21 [History Confirmed 05/29/23] glimepiride 4 mg tablet ea PO 04/02/21 [History Confirmed 05/29/23] lancing device #1 ea 04/02/21 [History Confirmed 05/29/23] lisinopril 2.5 mg tablet ea PO 04/02/21 [History Confirmed 05/29/23] lovastatin 40 mg tablet ea PO 04/02/21 [History Confirmed 05/29/23] melatonin 5 mg capsule mg PO 04/02/21 [History Confirmed 05/29/23] metformin 500 mg tablet,extended release 24 hr ea PO 04/02/21 [History Confirmed 05/29/23] metoprolol succinate 25 mg tablet,extended release 24 hr ea PO 04/02/21 [History Confirmed 05/29/23] multivitamin (Daily Multi-Vitamin tablet) 1 tab PO DAILY 04/02/21 [History Confirmed 05/29/23] potassium chloride 20 mEq tablet,extended release ea PO 04/02/21 [History Confirmed 05/29/23] pregabalin 50 mg capsule cap PO 04/02/21 [History Confirmed 05/29/23] levothyroxine 200 mcg tablet tablet PO 04/16/21 [History Confirmed 05/29/23] alcohol swabs (True Comfort Pro Alcohol Pads) pad topical 05/29/23 [History Confirmed 05/29/23] allopurinol 300 mg tablet mg PO 05/29/23 [History Confirmed 05/29/23] azelastine 137 mcg (0.1 %) nasal spray aerosol intranasal 05/29/23 [History Confirmed 05/29/23] blood-glucose meter (Origene TechnologiesTouch Ultra2 Meter) #1 ea 05/29/23 [History Confirmed 05/29/23] dapagliflozin propanediol 10 mg tablet (Farxiga) mg PO 05/29/23 [History Confirmed 05/29/23] lancets 30 gauge (Pure Comfort Safety Lancets) #100 ea 05/29/23 [History Confirmed 05/29/23] PFSH Medical History (Updated 05/29/23 @ 13:55 by Louis Townsend MD) Right shoulder pain Surgical History History of lung biopsy Hx of hernia repair Hx of hysterectomy Hx of knee surgery Hx of partial thyroidectomy Family History Mother Cancer Heart disease Diabetes Hypertension Arthritis CVA (cerebral vascular accident) Father Arthritis Cancer Diabetes Hypertension Brother Cancer Social History Smoking Status: Never smoker HPI RIGHT SHOULDER Details: This documentation accurately reflects the service provided and the decisions made by me, Dr. Louis Townsend MD 05/29/23 9993. Part of today???s visit was documented by [ ], acting as scribe. ALBA BISWAS is a 57 year old F here today for right shoulder pain, had an injection by dr small, posterior pain, catches, injection was inneffective, 1 month, came on insidiously. no recent shoulder xrays, no mri or surgery. posterior pain, ice heat. had similar pain on the left side and usually the injections work on the left side, does not work, read and knitting as hobbies. did months of therapy for both shoulders, not effective. Ortho Exam General General: Yes no acute distress Neurologic: Yes alert and Yes oriented x3 Psychologic: Yes reasonable and appropriate Right Shoulder Skin/Wound: Yes CDI, No ecchymosis, No erythema and No swelling Testing: Positive Hawkin's, Neer's, TTP Biceps, empty can and cross arm; Negative Speed's, TTP AC Joint, Drop Arm, scapular winging or belly press normal SHOULDER: normal motor and sens to ax nerve, and MRU and AIN/PIN active and passive fe 90, er 35. Supplemental Info xr 4 views r shoulder - Sclerosis of the undersurface of the acromion as well as the greater tuberosity. Mild glenohumeral joint space narrowing. No fracture or other acute abnormalities. Coding Level of Care Code Off vis,est,level 3 Diagnoses Right shoulder pain M25.511 (more content not included)... Normal [facility] Shoulder min 2 Viewson 05-29 Shoulder min 2 Views [facility] [address] [place] [address] Shoulder min 2 Views MR#: [id number] Acct: [id number] Name: ALBA BISWAS Rep #: [id number] : 1965 F 57 From: Fausto diaz MD PCP: Dr. Maritza Villalta MD Status: DEP AMB Study: Shoulder min 2 Views Date of Exam: 05/29/23 Exam# [id number] Ordering Dr: Louis Townsend MD [id number] INDICATION: pain EXAMINATION/TECHNIQUE : X-RAY - RIGHT XR Shoulder Min 2 Views 5 VIEWS COMPARISON: Prior study dated: 08/06/2018 __ FINDINGS: SOFT TISSUES: No soft tissue swelling or gas. No radiopaque foreign body. BONES/JOINTS: There is no fracture or dislocation. The glenohumeral joint is well aligned with small marginal osteophytes along the inferior aspect of the joint. Mild hypertrophic degenerative change of the acromioclavicular joint. The previous calcification adjacent to the greater tuberosity has resolved. The visualized ribs are intact. The visualized lung is clear. RAD/Shoulder min 2 Views IMPRESSION: Mild degenerative change of the right shoulder. Electronically Signed: Fausto De La Torre MD at 7:01 EST , CC: Dr. Louis Townsend MD; Dr. Maritza Villalta MD Hand Sign Writer: Signed Normal [facility] - Drug toxicology on 04-18-2022 Amphetamines Ql (U) Negative <1000 ng/mL [facility] Work Phone: Benzodiazepines Ql (U) Negative < 200 ng/mL [facility] Work Phone: Cannabinoids Screen Ql (U) Negative < 50 ng/mL [facility] Work Phone: Cocaine Ql (U) Negative < 300 ng/mL [facility] Work Phone: Opiates Ql (U) Negative < 300 ng/mL [facility] Work Phone: No Panel Informationon 04-18 MDMA (Ecstasy) Screen Negative < 500 ng/mL [facility] Work Phone: Urine Barbiturates Screen Negative < 200 ng/mL [facility] Work Phone: Urine Drug Screen Comment [facility] Work Phone: Comment on above: CONFIRMATORY TESTING FOR ALL POSITIVE URINE DRUG SCREENRESULTS WILL ONLY BE SENT OUT UPON PHYSICIAN ORDER. The results of Urine Drug Screen methods provide only preliminary analytical test results. A more specific alternate chemical method must be used in order to obtain a confirmed analytical result. Gas chromatography/mass spectrometery (GC/MS) is the preferred confirmatory method. Clinical consideration and professional judgement should be applied to any drug of abuse test result, particularly whenpreliminary positive results are used. Urine Methadone Screen Negative < 300 ng/mL [facility] Work Phone: Screening buprenorphine dete ctionon 04-18-2022 Buprenorphine Screen Ql (Unsp spec) Negative <10 ng/mL [facility] Work Phone: Urine phencyclidine (PCP) de tectionon 04-18-2022 Phencyclidine Ql (U) Negative < 25 ng/mL [facility] Work Phone: Hemoglobin A1con 03-29-2021 Glucose [Mass/Vol] 146 mg/dL Normal [facility] Comment on above: Performed By: #### H BA1C #### [facility] Routine Lab [address] [place], [place] [address] HbA1c (Bld) [Mass fraction] 6.7 % High 4.3-5.6 [facility] Reference Lab Comment on above: Performed By: #### H BA1C #### [facility] Routine Lab [address] [place], [place] [address] Vital Signs Date Time Vital Sign Value Performing Clinician Faci lity 05-29-2023 13:40-0500 Body height 160.[address] Maritza Villalta Work Phone: [facility] 05-29-2023 13:40-0500 Body mass index (BMI) [Ratio] 46.2 kg/m2 Dr. Maritza Villalta Work Phone: [facility] 05-29-2023 13:40-0500 Body weight 118.[address] Maritza Villalta Work Phone: [facility] Encounters Encounter Date Encounter Type Care Provider Facility Start: 01-03-2025 ambulatory MARITZA Parish [facility] Start: 10-05-2024 End: 10-05-[address] MARITZA VILLALTA MD Facility:A Start: 08-09-2024 End: 08-09-2024 ambulatory MARITZA VILLALTA [facility] Start: 07-23-2024 End: 07-23-2024 ambulatory MARITZA AJ SYEDA [facility] Start: 06-30-2024 End: 06-30-2024 ambulatory MARITZA VILLALTA [facility] Start: 05-24-2024 End: 05-24-2024 ambulatory CHARLES BARRIOS [employer] CONSULTANT-OR MANAGER Facility:A Start: 02-27-2024 End: 02-27-2024 ambulatory CHARLES Reinoso SOPHIE [facility] Start: 02-20-2024 ambulatory ANTONIO AJ [facility] Start: 02-20-2024 End: 02-20-2024 ambulatory ANTONIO AJ [facility] Start: 01-26-2024 ambulatory ANTONIO AJ [facility] Start: 01-26-2024 End: 01-26-2024 ambulatory ANTONIO AJ [facility] Start: 10-23-2023 End: 10-24-[address] MARITZA VILLALTA MD Facility:A Start: 10-16-2023 End: 10-17-[address] MARITZA VILLALTA MD Facility:A Start: 09-02-2023 End: 09-03-2023 ambulatory CHARLES BARRIOS APRN-OR MANAGER Facility:A Start: 07-16-2023 ambulatory Maritza Villalta Facility:[facility] Start: 06-30-2023 End: 06-30-2023 ambulatory Maritza Villalta Facility:[facility] Start: 06-30-2023 End: 06-30-[address] Maritza Villalta Work Phone: [facility] Work Phone: Start: 05-29-2023 End: 05-29-2023 ambulatory Maritza Villalta Facility:[facility] Start: 05-29-2023 End: 05-29-[address] Maritza Villalta Work Phone: [facility] Work Phone: Start: 04-18-2022 End: 04-18-2022 ambulatory [facility] Work Phone: Start: 04-18-2022 End: 04-18-2022 Patient encounter procedure [facility] Start: 12-27-2021 End: 12-27-2021 Patient encounter procedure [facility], [facility] Procedures Date Procedure Procedure Detail Performing Clinician Start: 06-30-2023 MRI of cervical spine Claudia Villalta Work Phone: Start: 06-30-2023 MRI of joint of lowe r extremity Dr. Maritza Villalta Work Phone: Start: 05-29-2023 Plain X-ray of shoulder Dr. Maritza Villalta Work Phone: Start: 12-27-2021 Radiologic examinati on of knee Plan of Treatment Date Care Activity Detail Author Start: 04-18-2022 Procedure [facility] Work Phone: Procedure [facility] Work Phone: Payers Date Payer Category Payer Private Health Insurance [id number] 2023 Self-pay [id number] 2010 Medicare [id number] 1965 Unknown [id number] 2.16.8 40.1.230014.3.579.2.7 1965 Unknown [id number] 2.16.8 40.1.744445.3.579.2. 1965 Unknown [id number] 2.16.8 40.1.977356.3.579.2.62 1965 Unknown [id number] 2.16.8 40.1.940742.3.579.2.627 1965 Unknown [id number] 2.16.8 40.1.569774.3.579.2.627 1965 Unknown [id number] 2.16.8 40.1.976735.3.579.2.651 1965 Unknown [id number] 2.16.8 40.1.948365.3.579.2.651 1965 Unknown [id number] 2.16.8 40.1.196833.3.579.2.651 1965 Unknown [id number] 2.16.8 40.1.300218.3.579.2.651 1965 Unknown [id number] 2.16.8 40.1.852536.3.579.2.651 1965 Unknown [id number] 2.16.8 40.1.184658.3.579.2.651 1965 Unknown [id number] 2.16.8 40.1.993259.3.579.2.651 1965 Unknown [id number] 2.16.8 40.1.420890.3.579.2.651 1965 Unknown [id number] 2.16.8 40.1.563281.3.579.2.651 1965 Unknown [id number] 2.16.8 40.1.480248.3.579.2.651 Unknown [id number] 2.16.8 40.1.943491.3.579.2.462 Unknown [id number] 2.16.8 40.1.022318.3.579.2.462 Unknown [id number] 2.16.8 40.1.938570.3.579.2.462 Unknown [id number] 2.16.8 40.1.344977.3.579.2.462 Social History Date Type Detail Facility Start: 04-16-2021 End: 05-29-2023 Tobacco smoking status ORIS Unknown if ever smoked [facility] Start: 1965 Sex Assigned At Female W [facility] Medical Equipment Procedure Code Equipment Code Equipment Origin al Text Equipment Identifier Dates Blood Sugar Diagnostic (Onetouch Ultra Test) strip Start: 04-02-2021 Blood Sugar Diagnostic (Onetouch Ultra Test) strip Start: 04-02-2021 Blood Sugar Diagnostic (Onetouch Ultra Test) strip Start: 04-02-2021 Lancets (Pure Comfort Safety Lancets) 30 gauge misc Start: 05-29-2023 Evaluation note Note Date & Type Note Facility Evaluation note No assessment information availa ble [facility] Work Phone: Evaluation note Note Date & Type Note Facility Evaluation note Diagnosis Onset Date Right shoulder pain acute [facility] Work Phone: Summary Purpose Family History No Family History Records Found Relationship Condition Age at Onset Recorded Date/T dianna mother Malignant neoplasm Unknown Cardiac disease Unknown Diabetes mellitus Unknown Hypertension Unknown Arthritis Unknown Cerebrovascular accident (CVA) Unknown father Arthritis Unknown Malignant neoplasm Unknown brother Malignant neoplasm Unknown Advance Directives No Advanced Directives Records FoundNo Advanced Directives Records FoundNo Advanced Directives Records FoundNo Advanced Directives Records FoundNo Advanced Directives Records Found Chief Complaint and Reason for Visit Chief Complaint BILAT KNEE OA Chief Complaint RIGHT SHOULDER RM 4 CERVICAL RAD Reason for Visit Right shoulder pain Additional Source Comments INFORMATION SOURCE (unrecogn ized section and content) DATE CREATED AUTHOR 03/30/2021 [facility] DATE CREATED AUTHOR AUTHOR'S ORGANIZ ATION 07/20/2023 [facility] DATE CREATED AUTHOR AUTHOR'S ORGANIZ ATION 10/28/2023 [facility] ([place]) DATE CREATED AUTHOR AUTHOR'S ORGANIZ ATION 10/07/2024 [facility] DATE CREATED AUTHOR AUTHOR'S ORGANIZ ATION 01/05/2025 [facility] Goals (unrecognized section and content) Goals may be documented in a n alternate sectionGoals may be documented in an alternate sectionGoals may be documented in an alternate section Care Teams (unrecognized sec tion and content) Team Status: Active Member Role Status Dates Dr. Maritza Villalta MD Family Provider Active Dr. Maritza Villalta MD Primary Care Provider Active Team Status: Inactive Member Role Status Dates Dr. Maritza Villalta MD Primary Care Provider, Referring Provider Active Louis Townsend MD Attending Provider Active Team Status: Inactive Member Role Status Dates Dr. Maritza Villalta MD Primary Care Provider Active Dr. Bobby Henry MD Attending Provider Active Team Status: Inactive Member Role Status Dates Dr. Maritza Villalta MD Primary Care Provider Active Dr. Christiano Small MD Attending Provider, Referring Caron sykes Active FOR RECORDS PERTAINING TO PATIENTS WHO ARE OR HAVE BEEN ENROLLED IN A CHEMICAL DEPENDENCY/SUBSTANCEABUSE PROGRAM, SOME INFORMATION MAY BE OMITTED. This clinical summary was aggregated from multiple sources. Caution should be exercised in using it in the provision of clinical care. This summary normalizes information from multiple sources, and as a consequence, information in this document may materially change the coding, format and clinical context of patient data. In addition, data may be omitted in some cases. CLINICAL DECISIONS SHOULD BE BASED ON THE PRIMARY CLINICAL RECORDS. [employer] provides no warranty or guarantee of the accuracy or completeness of information in this document.
--- OUTSIDE RECORDS SUMMARY | 2025-01-20 23:20 | XMS RPT_ITS | CCD ---
Author Organization [facility] Care Team Providers Care Hat Conditioner Name Role Phone Maritza Villalta Referring Unavailable [...] Primary Care Unavailable CHARLES FIELD Attending Unava ilCHARELS Terrell Admitting Unava ilCHARLES Terrell Attending Unava josette VILLALTA MD, DR SALAS Primary Care Unavailable Dr. Maritza Villalta Primary Care Provider Dr. Maritza Villalta Referring Provider MD Louis Townsend Attending Provider [phone] Dr. Bobby Henry Attending Provider [phone] CHARLES FIELD Attending Unava josette VILLALTA MD, [...] Facility (3 sources) Aspirin Drug Allergy 1 [facility] (3 sources) levoFLOXacin Drug Allergy 1 [facility] (4 sources) Penicillins; Translations: [Penicillins] Allergy to substance 1 [facility] (3 sources) rofecoxib Drug Allergy 1 rash [facility] (1 source) Aspirin Drug Allergy 3 [facility] (1 source) levoFLOXacin Drug Allergy 3 [facility] (1 source) rofecoxib Drug Allergy 3 [facility] (1 source) Aspirin Drug Allergy [facility] (1 source) Cefuroxime Drug Allergy [facility] (1 source) Cephalexin Drug Allergy [facility] (1 source) Egg Drug allergy (disorder) [facility] (1 source) Erythromycin Drug Allergy [facility] (1 source) Ibuprofen Drug Allergy [facility] (1 source) levoFLOXacin Drug Allergy [facility] (1 source) Naproxen Drug Allergy [facility] (1 source) Penicillins Drug allergy (disorder) [facility] (1 source) rofecoxib Drug Allergy [facility] Medications Current Medications Medication Drug [...] 10-05-2024 Estimated Glomerular Filtration Rate 38 ml/min/1.73sqm [facility] Comment on above: Result Comment: [...] B12, LIPID, VIDH, TSH, CMP, FT4 #### [address] [address] B12on 10-05-2024 Vitamin B12 Lvl >2000 High 211-911 [facility] Comment on above: Order Comment: 3 mon ths Performed By: #### G FR, B12, LIPID, VIDH, TSH, CMP, FT4 #### [address] [address] CMPon 10-05-2024 Albumin Level 3.7 G/dL Normal 3.2-4.8 [facility] Comment on above: Order Comment: 3 mon ths Performed By: #### G FR, B12, LIPID, VIDH, TSH, CMP, FT4 #### [address] [address] Albumin/Globulin [Mass ratio] 0.9 {ratio} Normal 0.9-1.6 [facility] Comment on above: Order Comment: 3 mon ths Performed By: #### G FR, B12, LIPID, VIDH, TSH, CMP, FT4 #### [address] [address] ALP [Catalytic activity/Vol] 83 U/L Normal 38-126 [facility] Comment on above: Order Comment: 3 mon ths Performed By: #### G FR, B12, LIPID, VIDH, TSH, CMP, FT4 #### [address] [address] ALT [Catalytic activity/Vol] 15 U/L Normal 10-49 [facility] Comment on above: Order Comment: 3 mon ths Performed By: #### G FR, B12, LIPID, VIDH, TSH, CMP, FT4 #### [place] [id number] [place] [address] AST [Catalytic activity/Vol] 20 U/L Normal 8-34 [facility] Comment on above: Order Comment: 3 mon ths Performed By: #### G FR, B12, LIPID, VIDH, TSH, CMP, FT4 #### [address] [address] Bili Total 0.30 mg/dL Normal 0.20-1.20 [facility] Comment on above: Order Comment: 3 mon ths Result Comment: Use of this assay is not recommended for patients undergoing treatment with eltrombopag due to the potential for falsely elevated results. Performed By: #### G FR, B12, LIPID, VIDH, TSH, CMP, FT4 #### [address] [address] BUN/Creatinine Ratio 16.0 ratio Normal 10.0-22.0 [facility] Comment on above: Order Comment: 3 mon ths Performed By: #### G FR, B12, LIPID, VIDH, TSH, CMP, FT4 #### [address] [address] Calcium [Mass/Vol] 10.1 mg/dL Normal 8.7-10.4 [facility] Comment on above: Order Comment: 3 mon ths Performed By: #### G FR, B12, LIPID, VIDH, TSH, CMP, FT4 #### [address] [address] Chloride [Moles/Vol] 102 mmol/L Normal 98-110 [facility] Comment on above: Order Comment: 3 mon ths Performed By: #### G FR, B12, LIPID, VIDH, TSH, CMP, FT4 #### [address] [address] CO2 [Moles/Vol] 33 mmol/L High 22-32 [facility] Comment on above: Order Comment: 3 mon ths Performed By: #### G FR, B12, LIPID, VIDH, TSH, CMP, FT4 #### [address] [address] Creatinine [Mass/Vol] 1.56 mg/dL High 0.50-1.20 [facility] Comment on above: Order Comment: 3 mon ths Result Comment: Test ing performed on [employer] analyzer using enzymatic creatinine methodology. Performed By: #### G FR, B12, LIPID, VIDH, TSH, CMP, FT4 #### [address] [address] Electrolyte Balance 7.0 mEq/L Normal 4.0-15.0 [facility] Comment on above: Order Comment: 3 mon ths Performed By: #### G FR, B12, LIPID, VIDH, TSH, CMP, FT4 #### [address] [address] Globulin 4.1 G/dL High 1.5-3.8 [facility] Comment on above: Order Comment: 3 mon ths Performed By: #### G FR, B12, LIPID, VIDH, TSH, CMP, FT4 #### [address] [address] Glucose [Mass/Vol] 160 mg/dL High 70-110 [facility] Comment on above: Order Comment: 3 mon ths Performed By: #### G FR, B12, LIPID, VIDH, TSH, CMP, FT4 #### [address] [address] Potassium [Moles/Vol] 3.9 mmol/L Normal 3.5-5.0 [facility] Comment on above: Order Comment: 3 mon ths Performed By: #### G FR, B12, LIPID, VIDH, TSH, CMP, FT4 #### [address] [address] Sodium [Moles/Vol] 142 mmol/L Normal 136-145 [facility] Comment on above: Order Comment: 3 mon ths Performed By: #### G FR, B12, LIPID, VIDH, TSH, CMP, FT4 #### [address] [address] Total Protein 7.8 G/dL Normal 5.7-8.2 [facility] Comment on above: Order Comment: 3 mon ths Performed By: #### G FR, B12, LIPID, VIDH, TSH, CMP, FT4 #### [address] [address] Urea nitrogen [Mass/Vol] 25.0 mg/dL High 8.0-22.0 [facility] Comment on above: Order Comment: 3 mon ths Performed By: #### G FR, B12, LIPID, VIDH, TSH, CMP, FT4 #### [address] [address] FT4on 10-05-2024 Free T4 [Mass/Vol] 1.35 ng/dL Normal 0.89-1.76 [facility] Comment on above: Order Comment: 3 mon ths Result Comment: No te - New Reference Range in effect 20 Performed By: #### G FR, B12, LIPID, VIDH, TSH, CMP, FT4 #### [address] [address] LIPIDon 10-05-2024 Cholesterol [Mass/Vol] 121 mg/dL Normal 50-199 [facility] Comment on above: Order Comment: 3 mon ths Result Comment: Chol esterol Reference Interval: Less than 200 Desirable 200-239 Borderline high risk 240 and above High risk Performed By: #### G FR, B12, LIPID, VIDH, TSH, CMP, FT4 #### [address] [address] Cholesterol in HDL [Mass/Vol] 41 mg/dL Normal 40-59 [facility] Comment on above: Order Comment: 3 mon ths Performed By: #### G FR, B12, LIPID, VIDH, TSH, CMP, FT4 #### [address] [address] Cholesterol in LDL [Mass/Vol] 48 mg/dL Normal 0-129 [facility] Comment on above: Order Comment: 3 mon ths Performed By: #### G FR, B12, LIPID, VIDH, TSH, CMP, FT4 #### [address] [address] Triglyceride [Mass/Vol] 161 mg/dL High 3-149 [facility] Comment on above: Order Comment: 3 mon ths Performed By: #### G FR, B12, LIPID, VIDH, TSH, CMP, FT4 #### [place] [id number] [place] [address] MALBRon 10-05-2024 U Creatinine 45.3 mg/dL Normal [facility] Comment on above: Order Comment: 3 mon ths Performed By: #### M ALBR #### [address] [address] U Microalb 5.8 mg/L Normal [facility] Comment on above: Order Comment: 3 mon ths Performed By: #### M ALBR #### [address] [address] U Ratio Alb/Cre 12.8 mg/G Normal 0.0-30.0 [facility] Comment on above: Order Comment: 3 mon ths Performed By: #### M ALBR #### [address] [address] TSHon 10-05-2024 TSH 2.231 mIU/mL Normal 0.550-4.780 [facility] Comment on above: Order Comment: 3 mon ths Performed By: #### G FR, B12, LIPID, VIDH, TSH, CMP, FT4 #### [address] [address] VIDHon 10-05-2024 Vit. D 25-Hydroxy 53.4 ng/mL Normal [facility] Comment on above: Order Comment: 3 mon ths Result Comment: Inte rpretive Values Based on Total 25(OH)D: Severe Deficiency <20 ng/mL Mild to Moderate Deficiency 20-30 ng/mL Optimum Levels 30-100 ng/mL Toxicity Possible >100 ng/mL Performed By: #### G FR, B12, LIPID, VIDH, TSH, CMP, FT4 #### [address] [address] PTH, INTACT [CCL]on 08-10-19 25 PTH, Intact 96 pg/mL High 15-65 [facility] Comment on above: Result Comment: [facility] [address] [place] [address] Sivakumar Mcneil III, M.D. [id number] Performed By: #### 2 14158 #### [facility],[address] [place] [address] BMP with eGFRon 08-09-2024 AGE 58 years Normal [facility] Comment on above: Performed By: #### 2 67517 #### [facility],[address] [place] [address] Anion gap [Moles/Vol] 13 mmol/L Normal - 20 [facility] Comment on above: Performed By: #### 2 05890 #### [facility],[address] [place] [address] BMP with eGFR Normal [facility] Comment on above: Result Comment: BASI C METABOLIC PANEL Performed By: #### 2 08181 #### [facility],[address] [place], [place] [address] Calcium [Mass/Vol] 9.2 mg/dL Normal 8.5 - 10.1 [facility] Comment on above: Performed By: #### 2 04068 #### [facility],[address] [place] [address] Chloride [Moles/Vol] 103 mmol/L Normal 98 - 107 [facility] Comment on above: Performed By: #### 2 17362 #### [facility],[address] [place] [address] CO2 [Moles/Vol] 31.5 mmol/L Normal 21.0 - 32.0 [facility] Comment on above: Performed By: #### 2 24248 #### [facility],[address] [place] [address] Creatinine [Mass/Vol] 1.77 mg/dL High 0.55 - 1.02 [facility] Comment on above: Performed By: #### 2 59734 #### [facility],[address] [place] [address] eGFR 29 ML/MINUTE Low 60 - 999 [facility] Comment on above: Performed By: #### 2 41606 #### [facility],[address] [place] [address] eGFR(AA) 36 ML/MINUTE Low 60 - 999 [facility] Comment on above: Result Comment: ACCO RDING TO THE NATIONAL KIDNEY DISEASE EDUCATION PROGRAM(NKDE), A NORMAL eGFR IS A VALUE GREATER THAN OR EQUAL TO 60 ML/MIN/1.73 SQ METERS. CHRONIC KIDNEY DISEASE: <60mL/MIN/1.73 SQ METERS KIDNEY FAILURE: <15mL/MIN/1.73 SQ METERS THIS TEST SHOULD ONLY BE USED FOR PATIENTS 18 YEARS OF AGE AND OLDER. Performed By: #### 2 85550 #### [facility],[address] [place] [address] Glucose [Mass/Vol] 184 mg/dL High 74 - 106 [facility] Comment on above: Performed By: #### 2 06821 #### [facility],[address] [place] [address] Potassium [Moles/Vol] 3.5 mmol/L Normal 3.5 - 5.1 [facility] Comment on above: Performed By: #### 2 38327 #### [facility],[address] [place] [address] Sodium [Moles/Vol] 144 mmol/L Normal 136 - 145 [facility] Comment on above: Performed By: #### 2 78541 #### [facility],[address] [place] [address] Urea nitrogen [Mass/Vol] 27 mg/dL High 7 - 18 [facility] Comment on above: Performed By: #### 2 39744 #### [facility],[address] [place] [address] CBC + DIFFon 08-09-2024 Baso # 0.02 x10EE3/UL Normal 0.00 - 0.10 [facility] Comment on above: Performed By: #### 2 64132 #### [facility],[address] [place] [address] Basophils/100 WBC (Bld) 0.2 % Normal 0.0 - 2.0 [facility] Comment on above: Performed By: #### 2 13633 #### [facility],[address] [place] [address] CBC + DIFF Normal [facility] Comment on above: Result Comment: CBC- COMPLETE BLOOD COUNT Performed By: #### 2 42248 #### [place] [address] EO # 0.22 x10EE3/UL Normal 0.00 - 0.50 [facility] Comment on above: Performed By: #### 2 11830 #### [place] [address] Eosinophils/100 WBC (Bld) 2.4 % Normal 0.0 - 7.0 [facility] Comment on above: Performed By: #### 2 81916 #### [place] [address] Erythrocyte distribution width (RBC) [Ratio] 17.2 % High 12.0 - 15.6 [facility] Comment on above: Performed By: #### 2 23096 #### [place] [address] Hematocrit (Bld) [Volume fraction] 34.4 % Normal 34.0 - 46.0 [facility] Comment on above: Performed By: #### 2 36917 #### [place] [address] Hemoglobin (Bld) [Mass/Vol] 11.0 g/dL Low 12.0 - 16.0 [facility] Comment on above: Performed By: #### 2 24633 #### [facility],[address] [place] [address] Lymph # 2.84 x10EE3/UL High 0.80 - 2.80 [facility] Comment on above: Performed By: #### 2 86170 #### [facility],[address] [place] [address] Lymphocytes/100 WBC (Bld) 30.4 % Normal 20.0 - 45.0 [facility] Comment on above: Performed By: #### 2 16309 #### [facility],[address] [place] [address] MANUAL DIFF N/A Normal [facility] Comment on above: Performed By: #### 2 26940 #### [facility],[address] [place] [address] MCH (RBC) [Entitic mass] 27 pg Normal 27 - 33 [facility] Comment on above: Performed By: #### 2 78421 #### [facility],[address] [place] [address] MCHC 32 X10 3 Normal 32 - 36 [facility] Comment on above: Performed By: #### 2 79463 #### [facility],[address] [place] [address] MCV (RBC) [Entitic vol] 83 fL Normal 80 - 99 [facility] Comment on above: Performed By: #### 2 34059 #### [facility],[address] [place] [address] [place] # 0.46 x10EE3/UL Normal 0.20 - 1.00 [facility] Comment on above: Performed By: #### 2 24044 #### [facility],[address] [place] [address] MONOS % 4.9 % Normal 0.0 - 10.0 [facility] Comment on above: Performed By: #### 2 18554 #### [facility],[address] [place] [address] Morphology Arturo (Bld) [Interp] N/A Normal [facility] Comment on above: Performed By: #### 2 34488 #### [facility],[address] [place] [address] Neut # 5.78 x10EE3/UL Normal 1.50 - 7.10 [facility] Comment on above: Performed By: #### 2 13208 #### [facility],[address] [place] [address] Neutrophils/100 WBC (Bld) 62.1 % Normal 46.0 - 76.0 [facility] Comment on above: Performed By: #### 2 60257 #### [facility],[address] [place] [address] PLATELET 274 x10EE3/UL Normal 150 - 450 [facility] Comment on above: Performed By: #### 2 61917 #### [facility],[address] [place] [address] Platelet mean volume (Bld) [Entitic vol] 8.3 fL Normal 6.6 - 10.5 [facility] Comment on above: Result Comment: AUTO MATED DIFFERENTIAL Performed By: #### 2 45714 #### [facility],[address] [place] [address] RBC 4.12 x 10EE6/UL Normal 4.10 - 5.30 [facility] Comment on above: Performed By: #### 2 71228 #### [facility],[address] [place], [place] [address] WBC 9.3 x 10EE3/UL Normal 4.5 - 10.8 [facility] Comment on above: Performed By: #### 2 95658 #### [facility],[address] [place], [place] [address] URIC ACIDon 08-09-2024 Urate [Mass/Vol] 3.8 mg/dL Normal 2.6 - 6.0 [facility] Comment on above: Performed By: #### 2 97351 #### [facility],[address] [place] [address] VITAMIN D, 25 HYDROXYon 07-22 VitD 43.10 ng/mL Normal 30.00 - 100 [facility] Comment on above: Result Comment: 25-O HD3 [...] D2 Not Established Performed By: #### 2 73345 #### [facility],[address] [place] [address] 3D MAMM BILAT SCREENon 07-23 3D MAMM BILAT SCREEN [address] [address] Patient: ALBA BISWAS Phone#: : 1965 Age: 58 Gender: F Pt. Type: Out Account: [id number] Location: [facility] Ordering: MARITZA VILLALTA Exam Date: 07/23/2024/14:17 Family Phys: Charge Code: [id number] Physician: [place] Order #: [id number] Dose#: PROCEDURE: BILATERAL SCREENING BREAST TOMOSYNTHESIS MAMMOGRAM WITH CAD COMPARISON: [facility], 3D BILAT SCREEN, 11/02/2021, 11:08. [facility], 3D BILAT SCREEN, 02/07/2023, 13:10. INDICATIONS: Screening. [...] Corona MD on 07/23/2024 at 16:57 Normal [facility] CBC + DIFFon 06-30-2024 Baso # 0.03 x10EE3/UL Normal 0.00 - 0.10 [facility] Comment on above: Performed By: #### 2 64520 #### [place] [address] Basophils/100 WBC (Bld) 0.4 % Normal 0.0 - 2.0 [facility] Comment on above: Performed By: #### 2 44155 #### [place] [address] CBC + DIFF Normal [facility] Comment on above: Result Comment: CBC- COMPLETE BLOOD COUNT Performed By: #### 2 71770 #### [place] [address] EO # 0.22 x10EE3/UL Normal 0.00 - 0.50 [facility] Comment on above: Performed By: #### 2 66144 #### [place] [address] Eosinophils/100 WBC (Bld) 2.6 % Normal 0.0 - 7.0 [facility] Comment on above: Performed By: #### 2 48749 #### [place] [address] Erythrocyte distribution width (RBC) [Ratio] 16.8 % High 12.0 - 15.6 [facility] Comment on above: Performed By: #### 2 04664 #### [place] [address] Hematocrit (Bld) [Volume fraction] 33.9 % Low 34.0 - 46.0 [facility] Comment on above: Performed By: #### 2 84022 #### [facility],[address] [place] [address] Hemoglobin (Bld) [Mass/Vol] 11.0 g/dL Low 12.0 - 16.0 [facility] Comment on above: Performed By: #### 2 42835 #### [facility],[address] [place] [address] Lymph # 2.92 x10EE3/UL High 0.80 - 2.80 [facility] Comment on above: Performed By: #### 2 88774 #### [facility],[address] [place] [address] Lymphocytes/100 WBC (Bld) 34.9 % Normal 20.0 - 45.0 [facility] Comment on above: Performed By: #### 2 87823 #### [facility],[address] [place] [address] MANUAL DIFF N/A Normal [facility] Comment on above: Performed By: #### 2 54145 #### [facility],[address] [place], [place] [address] MCH (RBC) [Entitic mass] 27 pg Normal 27 - 33 [facility] Comment on above: Performed By: #### 2 46410 #### [facility],[address] [place], [place] [address] MCHC 32 X10 3 Normal 32 - 36 [facility] Comment on above: Performed By: #### 2 67907 #### [facility],[address] [place], [place] [address] MCV (RBC) [Entitic vol] 84 fL Normal 80 - 99 [facility] Comment on above: Performed By: #### 2 87494 #### [facility],[address] [place] [address] [place] # 0.42 x10EE3/UL Normal 0.20 - 1.00 [facility] Comment on above: Performed By: #### 2 41925 #### [facility],[address] [place] [address] MONOS % 5.1 % Normal 0.0 - 10.0 [facility] Comment on above: Performed By: #### 2 50950 #### [facility],[address] [place] [address] Morphology Arturo (Bld) [Interp] N/A Normal [facility] Comment on above: Performed By: #### 2 64224 #### [facility],[address] [place] [address] Neut # 4.77 x10EE3/UL Normal 1.50 - 7.10 [facility] Comment on above: Performed By: #### 2 39278 #### [facility],[address] [place] [address] Neutrophils/100 WBC (Bld) 57.1 % Normal 46.0 - 76.0 [facility] Comment on above: Performed By: #### 2 44248 #### [facility],[address] [place] [address] PLATELET 276 x10EE3/UL Normal 150 - 450 [facility] Comment on above: Performed By: #### 2 60278 #### [facility],[address] [place] [address] Platelet mean volume (Bld) [Entitic vol] 8.0 fL Normal 6.6 - 10.5 [facility] Comment on above: Result Comment: AUTO MATED DIFFERENTIAL Performed By: #### 2 55535 #### [facility],[address] [place] [address] RBC 4.04 x 10EE6/UL Low 4.10 - 5.30 [facility] Comment on above: Performed By: #### 2 12110 #### [place] [address],[place] [address] WBC 8.4 x 10EE3/UL Normal 4.5 - 10.8 [facility] Comment on above: Performed By: #### 2 61741 #### [facility],[address] [place] [address] CMP with eGFRon 06-30-2024 AGE 58 years Normal [facility] Comment on above: Performed By: #### 2 57985 #### [facility],[address] [place] [address] Albumin [Mass/Vol] 3.2 g/dL Low 3.4 - 5.0 [facility] Comment on above: Performed By: #### 2 99534 #### [facility],[address] [place] [address] Albumin/Globulin [Mass ratio] 0.7 {ratio} Low 0.9 - 1.6 [facility] Comment on above: Performed By: #### 2 98188 #### [facility],[address] [place] [address] ALK PHOS 84 U/L Normal 46 - 116 [facility] Comment on above: Performed By: #### 2 05015 #### [facility],[address] [place] [address] ALT [Catalytic activity/Vol] 21 U/L Normal 16 - 63 [facility] Comment on above: Performed By: #### 2 67995 #### [facility],[address] [place] [address] Anion gap [Moles/Vol] 12 mmol/L Normal 10 - 20 [facility] Comment on above: Performed By: #### 2 70706 #### [facility],[address] [place] [address] AST [Catalytic activity/Vol] 21 U/L Normal 13 - 39 [facility] Comment on above: Performed By: #### 2 73908 #### [facility],[address] [place] [address] B/C RATIO 16 ratio Normal 0 - 30 [facility] Comment on above: Performed By: #### 2 28336 #### [facility],[address] [place] [address] Bilirubin [Mass/Vol] 0.3 mg/dL Normal 0.2 - 1.0 [facility] Comment on above: Performed By: #### 2 40472 #### [facility],[address] [place] [address] 26010 Calcium [Mass/Vol] 9.1 mg/dL Normal 8.5 - 10.1 [facility] Comment on above: Performed By: #### 2 09527 #### [facility],[address] [place] [address] 00094 Chloride [Moles/Vol] 104 mmol/L Normal 98 - 107 [facility] Comment on above: Performed By: #### 2 86024 #### [facility],[address] [place] [address] 29314 CMP with eGFR Normal [facility] Comment on above: Result Comment: COMP REHENSIVE METABOLIC PANEL Performed By: #### 2 63880 #### [facility],[address] [place] [address] 87684 CO2 [Moles/Vol] 30.4 mmol/L Normal 21.0 - 32.0 [facility] Comment on above: Performed By: #### 2 34736 #### [facility],[address] [place] [address] 82525 Creatinine [Mass/Vol] 2.05 mg/dL High 0.55 - 1.02 [facility] Comment on above: Performed By: #### 2 83334 #### [facility],[address] [place] [address] 98582 eGFR 25 ML/MINUTE Low 60 - 999 [facility] Comment on above: Performed By: #### 2 40918 #### [facility],[address] [place] [address] 45730 eGFR(AA) 30 ML/MINUTE Low 60 - 999 [facility] Comment on above: Result Comment: ACCO RDING TO THE NATIONAL KIDNEY DISEASE EDUCATION PROGRAM(NKDE), A NORMAL eGFR IS A VALUE GREATER THAN OR EQUAL TO 60 ML/MIN/1.73 SQ METERS. CHRONIC KIDNEY DISEASE: <60mL/MIN/1.73 SQ METERS KIDNEY FAILURE: <15mL/MIN/1.73 SQ METERS THIS TEST SHOULD ONLY BE USED FOR PATIENTS 18 YEARS OF AGE AND OLDER. Performed By: #### 2 57388 #### [facility],[address] [place] [address] 06577 Globulin (S) [Mass/Vol] 4.4 g/dL High 1.5 - 3.8 [facility] Comment on above: Performed By: #### 2 89014 #### [address] [address] Glucose [Mass/Vol] 151 mg/dL High 74 - 106 [facility] Comment on above: Performed By: #### 2 69325 #### [address] [address]194 Potassium [Moles/Vol] 3.6 mmol/L Normal 3.5 - 5.1 [facility] Comment on above: Performed By: #### 2 98816 #### [address] [address] Protein [Mass/Vol] 7.6 g/dL Normal 6.4 - 8.2 [facility] Comment on above: Performed By: #### 2 61373 #### [address] [address]91 Sodium [Moles/Vol] 143 mmol/L Normal 136 - 145 [facility] Comment on above: Performed By: #### 2 84928 #### [address] [address]247 Urea nitrogen [Mass/Vol] 33 mg/dL High 7 - 18 [facility] Comment on above: Performed By: #### 2 03272 #### [facility],[address] [place] [address] 00151 HEMOGLOBIN A1C (POM)on 06-30 Glucose [Mass/Vol] 180.0 mg/dL High 0.0 - 0.0 [facility] Comment on above: Result Comment: BLDo HEMOGLOBIN A1C REFERENCE RANGESBLDo Suggested Diagnosis HbA1c(%) HbA1C (mmol/mol Diabetic >/=6.5 >/=48 Prediabetes 5.7 - 6.4 39 - 47 Normal <5.7 <39 Performed By: #### 2 84719 #### [facility],[address] [place] [address] 73481 HbA1c (Bld) [Mass fraction] 7.9 % High 0.0 - 6.5 [facility] Comment on above: Performed By: #### 2 48248 #### [facility],[address] [place] [address] 45332 LIPID PROFILEon 06-30-2024 Cholesterol [Mass/Vol] 122 mg/dL Normal 0 - 240 [facility] Comment on above: Performed By: #### 2 06030 #### [facility],[address] [place] [address] 33347 Cholesterol in HDL [Mass/Vol] 54 mg/dL Normal 40 - 60 [facility] Comment on above: Performed By: #### 2 82354 #### [facility],[address] [place] [address] 40900 Cholesterol in LDL [Mass/Vol] 41 mg/dL Normal 0 - 129 [facility] Comment on above: Performed By: #### 2 87152 #### [facility],[address] [place] [address] 47449 Cholesterol.total/C holesterol in HDL [Mass ratio] 2.3 {ratio} Normal 0.0 - 5.0 [facility] Comment on above: Performed By: #### 2 83402 #### [facility],[address] [place] [address] 87716 Lipid 1996 panel Normal [facility] Comment on above: Result Comment: LIPI D PROFILE Performed By: #### 2 45178 #### [facility],[address] [place] [address] 20353 Triglyceride [Mass/Vol] 134 mg/dL Normal 0 - 150 [facility] Comment on above: Performed By: #### 2 31977 #### [facility],[address] [place] [address] 35349 T4-FREE (FREE THYROXINE)on 08-31-2023 Free T4 [Mass/Vol] 1.00 ng/dL Normal 0.76 - 1.46 [facility] Comment on above: Result Comment: P otential of falsely elevated results when biotin concentrations are > 10 ng/mL. Performed By: #### 2 73439 #### [facility],[address] [place] [address] 58418 TSHon 06-30-2024 TSH Qn 4.28 m[IU]/L High 0.35 - 3.74 [facility] Comment on above: Performed By: #### 2 05702 #### [facility],[address] [place] [address] 92444 FT4on 05-24-2024 Free T4 [Mass/Vol] 1.23 ng/dL Normal 0.89-1.76 [facility] Comment on above: Order Comment: 3 mon ths Result Comment: No te - New Reference Range in effect 20 Performed By: #### T SH, FT4 #### [address] [address] TSHon 05-24-2024 TSH 3.140 mIU/mL Normal 0.550-4.780 [facility] Comment on above: Order Comment: 3 mon ths Performed By: #### T SH, FT4 #### [address] [address] T4-FREE (FREE THYROXINE)on 0 02-27-2024 Free T4 [Mass/Vol] 1.14 ng/dL Normal 0.76 - 1.46 [facility] Comment on above: Result Comment: P otential of falsely elevated results when biotin concentrations are > 10 ng/mL. Performed By: #### 2 40892 #### [facility],[address] [place] [address] 29461 TSHon 02-27-2024 TSH Qn 0.97 m[IU]/L Normal 0.35 - 3.74 [facility] Comment on above: Performed By: #### 2 73214 #### [facility],[address] [place] [address] 67513 PTH, INTACT [CCL]on 02-21-20 24 PTH, Intact 79 pg/mL High 15-65 [facility] Comment on above: Result Comment: [facility] [address] [place] [address] Sivakumar Mcneil III, M.D. [id number] Performed By: #### 2 71887 #### [facility],[address] [place] [address] 90796 BMP with eGFRon 02-20-2024 AGE 58 years Normal [facility] Comment on above: Performed By: #### 2 29172 #### [facility],[address] [place] [address] 78883 Anion gap [Moles/Vol] 11 mmol/L Normal - [facility] Comment on above: Performed By: #### 2 74255 #### [address] [address] BMP with eGFR Normal [facility] Comment on above: Result Comment: BASI C METABOLIC PANEL Performed By: #### 2 00312 #### [facility],[address] [place] [address] 65171 Calcium [Mass/Vol] 9.3 mg/dL Normal 8.5 - 10.1 [facility] Comment on above: Performed By: #### 2 44993 #### [facility],[address] [place] [address] 31432 Chloride [Moles/Vol] 100 mmol/L Normal 98 - 107 [facility] Comment on above: Performed By: #### 2 56869 #### [facility],[address] [place] [address] 88418 CO2 [Moles/Vol] 32.0 mmol/L Normal 21.0 - 32.0 [facility] Comment on above: Performed By: #### 2 81243 #### [facility],[address] [place] [address] 41958 Creatinine [Mass/Vol] 2.19 mg/dL High 0.55 - 1.02 [facility] Comment on above: Performed By: #### 2 81107 #### [facility],[address] [place] [address] 00771 eGFR 23 ML/MINUTE Low 60 - 999 [facility] Comment on above: Performed By: #### 2 56870 #### [facility],[address] [place] [address] 93242 eGFR(AA) 28 ML/MINUTE Low 60 - 999 [facility] Comment on above: Result Comment: ACCO RDING TO THE NATIONAL KIDNEY DISEASE EDUCATION PROGRAM(NKDE), A NORMAL eGFR IS A VALUE GREATER THAN OR EQUAL TO 60 ML/MIN/1.73 SQ METERS. CHRONIC KIDNEY DISEASE: <60mL/MIN/1.73 SQ METERS KIDNEY FAILURE: <15mL/MIN/1.73 SQ METERS THIS TEST SHOULD ONLY BE USED FOR PATIENTS 18 YEARS OF AGE AND OLDER. Performed By: #### 2 89033 #### [facility],[address] [place] [address] 95905 Glucose [Mass/Vol] 162 mg/dL High 74 - 106 [facility] Comment on above: Performed By: #### 2 02773 #### [facility],[address] [place] [address] 25841 Potassium [Moles/Vol] 3.9 mmol/L Normal 3.5 - 5.1 [facility] Comment on above: Performed By: #### 2 89125 #### [facility],[address] [place] [address] 83681 Sodium [Moles/Vol] 139 mmol/L Normal 136 - 145 [facility] Comment on above: Performed By: #### 2 79856 #### [facility],[address] [place] [address] Urea nitrogen [Mass/Vol] 37 mg/dL High 7 - 18 [facility] Comment on above: Performed By: #### 2 08892 #### [facility],[address] [place] [address] CBC + DIFFon 02-20-2024 Baso # 0.03 x10EE3/UL Normal 0.00 - 0.10 [facility] Comment on above: Performed By: #### 2 67369 #### [facility],[address] [place] [address] 01703 Basophils/100 WBC (Bld) 0.4 % Normal 0.0 - 2.0 [facility] Comment on above: Performed By: #### 2 64568 #### [facility],[address] [place] [address] 37211 CBC + DIFF Normal [facility] Comment on above: Result Comment: CBC- COMPLETE BLOOD COUNT Performed By: #### 2 64870 #### [facility],[address] [place] [address] 45560 EO # 0.21 x10EE3/UL Normal 0.00 - 0.50 [facility] Comment on above: Performed By: #### 2 57051 #### [facility],[address] [place] [address] 05408 Eosinophils/100 WBC (Bld) 2.4 % Normal 0.0 - 7.0 [facility] Comment on above: Performed By: #### 2 04351 #### [facility],[address] [place], [place] [address] Erythrocyte distribution width (RBC) [Ratio] 15.7 % High 12.0 - 15.6 [facility] Comment on above: Performed By: #### 2 12120 #### [facility],[address] [place] [address] Hematocrit (Bld) [Volume fraction] 33.0 % Low 34.0 - 46.0 [facility] Comment on above: Performed By: #### 2 31279 #### [facility],[address] [place] [address] Hemoglobin (Bld) [Mass/Vol] 10.7 g/dL Low 12.0 - 16.0 [facility] Comment on above: Performed By: #### 2 73676 #### [facility],[address] [place] [address] Lymph # 2.10 x10EE3/UL Normal 0.80 - 2.80 [facility] Comment on above: Performed By: #### 2 01620 #### [facility],[address] [place], [place] [address] Lymphocytes/100 WBC (Bld) 24.3 % Normal 20.0 - 45.0 [facility] Comment on above: Performed By: #### 2 27035 #### [facility],[address] [place], [place] [address] MANUAL DIFF N/A Normal [facility] Comment on above: Performed By: #### 2 70043 #### [facility],[address] [place] [address] 55068 MCH (RBC) [Entitic mass] 28 pg Normal 27 - 33 [facility] Comment on above: Performed By: #### 2 38593 #### [facility],[address] [place] [address] 04813 MCHC 32 X10 3 Normal 32 - 36 [facility] Comment on above: Performed By: #### 2 00309 #### [facility],[address] [place] [address] 89385 MCV (RBC) [Entitic vol] 88 fL Normal 80 - 99 [facility] Comment on above: Performed By: #### 2 16753 #### [facility],[address] [place] [address] 94112 [place]han # 0.58 x10EE3/UL Normal 0.20 - 1.00 [facility] Comment on above: Performed By: #### 2 55624 #### [facility],[address] [place] [address] 36872 MONOS % 6.7 % Normal 0.0 - 10.0 [facility] Comment on above: Performed By: #### 2 54282 #### [facility],[address] [place] [address] 98960 Morphology Arturo (Bld) [Interp] N/A Normal [facility] Comment on above: Performed By: #### 2 89325 #### [facility],[address] [place] [address] 66782 Neut # 5.74 x10EE3/UL Normal 1.50 - 7.10 [facility] Comment on above: Performed By: #### 2 33897 #### [facility],[address] [place] [address] 70180 Neutrophils/100 WBC (Bld) 66.3 % Normal 46.0 - 76.0 [facility] Comment on above: Performed By: #### 2 06660 #### [facility],[address] [place] [address] 56003 PLATELET 283 x10EE3/UL Normal 150 - 450 [facility] Comment on above: Performed By: #### 2 44628 #### [facility],[address] [place] [address] 60109 Platelet mean volume (Bld) [Entitic vol] 8.2 fL Normal 6.6 - 10.5 [facility] Comment on above: Result Comment: AUTO MATED DIFFERENTIAL Performed By: #### 2 74956 #### [facility],[address] [place] [address] 49918 RBC 3.77 x 10EE6/UL Low 4.10 - 5.30 [facility] Comment on above: Performed By: #### 2 78010 #### [address] [address] WBC 8.7 x 10EE3/UL Normal 4.5 - 10.8 [facility] Comment on above: Performed By: #### 2 73965 #### [facility],[address] [place] [address] 18744 URIC ACIDon 02-20-2024 Urate [Mass/Vol] 4.8 mg/dL Normal 2.6 - 6.0 [facility] Comment on above: Performed By: #### 2 14572 #### [address] [address] URINE CREATININE AND PROTEIN RATIOon 02-20-2024 CREATININE UR 41.75 mg/dl Normal [facility] Comment on above: Performed By: #### 2 60651 #### [facility],[address] [place] [address] 47424 PC RATIO 0.46 mg/dL Normal 0.00 - 10.00 [facility] Comment on above: Performed By: #### 2 89839 #### [address] [address] Protein (U) [Mass/Vol] 19.10 mg/dL High 0.00 - 10.00 [facility] Comment on above: Performed By: #### 2 53885 #### [address] [address]003 VITAMIN D, 25 HYDROXYon 08- VitD 47.90 ng/mL Normal 30.00 - 100 [facility] Comment on above: Result Comment: 25-O HD3 [...] D2 Not Established Performed By: #### 2 80183 #### [place] [id number] CBC (NO DIFF)on 01-26-2024 CBC panel Auto (Bld) Normal [facility] Comment on above: Result Comment: CBC( WITHOUT DIFFERENTIAL) Performed By: #### 2 59156 #### [address] [address] Erythrocyte distribution width (RBC) [Ratio] 15.4 % Normal 12.0 - 15.6 [facility] Comment on above: Performed By: #### 2 98229 #### [facility],[address] [place] [address] 99255 Hematocrit (Bld) [Volume fraction] 32.0 % Low 34.0 - 46.0 [facility] Comment on above: Performed By: #### 2 81029 #### [facility],[address] [place] [address] 46026 Hemoglobin (Bld) [Mass/Vol] 10.4 g/dL Low 12.0 - 16.0 [facility] Comment on above: Performed By: #### 2 90529 #### [address] [address]8067 MCH (RBC) [Entitic mass] 29 pg Normal 27 - 33 [facility] Comment on above: Performed By: #### 2 78376 #### [facility],[address] [place] [address] 68324 MCHC 32 X10 3 Normal 32 - 36 [facility] Comment on above: Performed By: #### 2 25852 #### [facility],[address] [place] [address] 45267 MCV (RBC) [Entitic vol] 89 fL Normal 80 - 99 [facility] Comment on above: Performed By: #### 2 36973 #### [facility],[address] [place] [address] 96327 PLATELET 230 x10EE3/UL Normal 150 - 450 [facility] Comment on above: Performed By: #### 2 67933 #### [facility],[address] [place] [address] Platelet mean volume (Bld) [Entitic vol] 8.0 fL Normal 6.6 - 10.5 [facility] Comment on above: Performed By: #### 2 94288 #### [facility],[address] [place] [address] RBC 3.59 x 10EE6/UL Low 4.10 - 5.30 [facility] Comment on above: Performed By: #### 2 62976 #### [facility],[address] [place], [place] [address] WBC 9.4 x 10EE3/UL Normal 4.5 - 10.8 [facility] Comment on above: Performed By: #### 2 93165 #### [facility],[address] [place], [place] [address] CMP with eGFRon 01-26-2024 AGE 58 years Normal [facility] Comment on above: Performed By: #### 2 41460 #### [facility],[address] [place] [address] 60523 Albumin [Mass/Vol] 3.1 g/dL Low 3.4 - 5.0 [facility] Comment on above: Performed By: #### 2 81465 #### [facility],[address] [place] [address] 56315 Albumin/Globulin [Mass ratio] 0.7 {ratio} Low 0.9 - 1.6 [facility] Comment on above: Performed By: #### 2 31470 #### [facility],[address] [place] [address] 83616 ALK PHOS 79 U/L Normal 46 - 116 [facility] Comment on above: Performed By: #### 2 49282 #### [facility],[address] [place] [address] 00656 ALT [Catalytic activity/Vol] 16 U/L Normal 16 - 63 [facility] Comment on above: Performed By: #### 2 66287 #### [facility],[address] [place] [address] 02843 Anion gap [Moles/Vol] 10 mmol/L Normal 10 - 20 [facility] Comment on above: Performed By: #### 2 50012 #### [facility],[address] [place] [address] 44747 AST [Catalytic activity/Vol] 19 U/L Normal 13 - 39 [facility] Comment on above: Performed By: #### 2 63710 #### [facility],[address] [place] [address] 52044 B/C RATIO 20 ratio Normal 0 - 30 [facility] Comment on above: Performed By: #### 2 47149 #### [facility],[address] [place] [address] 95711 Bilirubin [Mass/Vol] 0.4 mg/dL Normal 0.2 - 1.0 [facility] Comment on above: Performed By: #### 2 04571 #### [facility],[address] [place] [address] 95002 Calcium [Mass/Vol] 8.9 mg/dL Normal 8.5 - 10.1 [facility] Comment on above: Performed By: #### 2 48512 #### [facility],[address] [place] [address] 17505 Chloride [Moles/Vol] 102 mmol/L Normal 98 - 107 [facility] Comment on above: Performed By: #### 2 20039 #### [facility],[address] [place] [address] 08243 CMP with eGFR Normal [facility] Comment on above: Result Comment: COMP REHENSIVE METABOLIC PANEL Performed By: #### 2 50881 #### [facility],[address] [place] [address] 54256 CO2 [Moles/Vol] 29.2 mmol/L Normal 21.0 - 32.0 [facility] Comment on above: Performed By: #### 2 76709 #### [facility],[address] [place] [address] Creatinine [Mass/Vol] 1.81 mg/dL High 0.55 - 1.02 [facility] Comment on above: Performed By: #### 2 28609 #### [facility],[address] [place] [address] 36349 eGFR 29 ML/MINUTE Low 60 - 999 [facility] Comment on above: Performed By: #### 2 23810 #### [facility],[address] [place], [place] [address] eGFR(AA) 35 ML/MINUTE Low 60 - 999 [facility] Comment on above: Result Comment: ACCO RDING TO THE NATIONAL KIDNEY DISEASE EDUCATION PROGRAM(NKDE), A NORMAL eGFR IS A VALUE GREATER THAN OR EQUAL TO 60 ML/MIN/1.73 SQ METERS. CHRONIC KIDNEY DISEASE: <60mL/MIN/1.73 SQ METERS KIDNEY FAILURE: <15mL/MIN/1.73 SQ METERS THIS TEST SHOULD ONLY BE USED FOR PATIENTS 18 YEARS OF AGE AND OLDER. Performed By: #### 2 96781 #### [facility],[address] [place] [address] 70766 Globulin (S) [Mass/Vol] 4.3 g/dL High 1.5 - 3.8 [facility] Comment on above: Performed By: #### 2 52042 #### [facility],[address] [place], [place] [address] Glucose [Mass/Vol] 171 mg/dL High 74 - 106 [facility] Comment on above: Performed By: #### 2 19970 #### [facility],[address] [place] [address] 81312 Potassium [Moles/Vol] 3.9 mmol/L Normal 3.5 - 5.1 [facility] Comment on above: Performed By: #### 2 51835 #### [facility],[address] [place] [address] 28351 Protein [Mass/Vol] 7.4 g/dL Normal 6.4 - 8.2 [facility] Comment on above: Performed By: #### 2 46669 #### [facility],[address] [place] [address] 24617 Sodium [Moles/Vol] 137 mmol/L Normal 136 - 145 [facility] Comment on above: Performed By: #### 2 14987 #### [facility],[address] [place] [address] 54108 Urea nitrogen [Mass/Vol] 37 mg/dL High 7 - 18 [facility] Comment on above: Performed By: #### 2 02828 #### [facility],[address] [place] [address] 65808 NM CARDIAC STRESS (SPECT) W/ LEXISCANon 01-26-2024 NM CARDIAC STRESS (SPECT) W/[address] [address] Patient: ALBA BISWAS Phone#: : 1965 Age: 58 Gender: F Pt. Type: Out Account: [id number] Location: [facility] Ordering: ANTONIO SALVADOR Exam Date: 01/26/2024/6:42 Family Phys: Charge Code: [id number] Physician: [place] Order #: [id number] Dose#: PROCEDURE: CARDIAC STRESS SPECT WITH LEXISCAN [...] 58 Gender: F Pt. Type: Out Account: [id number] Location: [facility] Ordering: ANTONIO SALVADOR Exam Date: 01/26/2024/6:42 Family Phys: Charge Code: [id number] Physician: [place] Order #: [id number] Dose#: Approved by: ANTONIO SALVADOR MD on 01/26/2024 at 11:10 Normal [facility] NM EXERCISE STRESS TEST (W/C ARDIAC STUDYon 01-26-2024 NM EXERCISE STRESS TEST (W/CARDIAC STUDY [place] [address] Patient: ALBA BISWAS Phone#: : 1965 Age: 58 Gender: F Pt. Type: Out Account: [id number] Location: 052 Ordering: ANTONIO SALVADOR Exam Date: 01/26/2024/6:42 Family Phys: Charge Code: [id number] Physician: [place] Order #: [id number] Dose#: PROCEDURE: ELECTROCARDIOGRAM STRESS TEST HISTORY: Patient [...] 4. Nuclear images will be reported separately. [place] [address] Patient: ALBA BISWAS Phone#: : 1965 Age: 58 Gender: F Pt. Type: Out Account: [id number] Location: 052 Ordering: ANTONIO SALVADOR Exam Date: 01/26/2024/6:42 Family Phys: Charge Code: [id number] Physician: [place] Order #: [id number] Dose#: Dictated by: ANTONIO SALVADOR MD on 01/26/2024 at 9:28 Approved by: ANTONIO SALVADOR MD on 01/26/2024 at 9:40 Normal [facility] .GFRon 10-16-2023 GFR Non- 24 ml/min/1.73sqm Normal [facility] [facility] ([place]) Comment on above: Result Comment: GFR Population [...] C MP, TSH, FT4, GFR, FT3 #### [address] [address] GFR 29 ml/min/1.73sqm Normal [facility] ([place]) Comment on above: Result Comment: GFR Population [...] C MP, TSH, FT4, GFR, FT3 #### [address] [address] CMPon 10-16-2023 Albumin Level 3.3 G/dL Normal 3.2-4.8 [facility] ([place]) Comment on above: Performed By: #### C MP, TSH, FT4, GFR, FT3 #### [place] [id number] Albumin/Globulin [Mass ratio] 0.8 {ratio} Low 0.9-1.6 [facility] ([place]) Comment on above: Performed By: #### C MP, TSH, FT4, GFR, FT3 #### [place] [id number] ALP [Catalytic activity/Vol] 98 U/L Normal 38-126 [facility] ([place]) Comment on above: Performed By: #### C MP, TSH, FT4, GFR, FT3 #### [place] [id number] ALT [Catalytic activity/Vol] 21 U/L Normal 10-49 [facility] ([place]) Comment on above: Performed By: #### C MP, TSH, FT4, GFR, FT3 #### [place] [id number] AST [Catalytic activity/Vol] 22 U/L Normal 8-34 [facility] ([place]) Comment on above: Performed By: #### C MP, TSH, FT4, GFR, FT3 #### [place] [id number] Bili Total 0.30 mg/dL Normal 0.20-1.20 [facility] ([place]) Comment on above: Result Comment: Use of this assay is not recommended for patients undergoing treatment with eltrombopag due to the potential for falsely elevated results. Performed By: #### C MP, TSH, FT4, GFR, FT3 #### [place] [id number] BUN/Creatinine Ratio 21.3 ratio Normal 10.0-22.0 [facility] ([place]) Comment on above: Performed By: #### C MP, TSH, FT4, GFR, FT3 #### [place] [address] Calcium [Mass/Vol] 9.7 mg/dL Normal 8.7-10.4 [facility] ([place]) Comment on above: Performed By: #### C MP, TSH, FT4, GFR, FT3 #### [address] [address] Chloride [Moles/Vol] 101 mmol/L Normal 98-110 [facility] ([place]) Comment on above: Performed By: #### C MP, TSH, FT4, GFR, FT3 #### [address] [address] CO2 [Moles/Vol] 31 mmol/L Normal 22-32 [facility] ([place]) Comment on above: Performed By: #### C MP, TSH, FT4, GFR, FT3 #### [address] [address] Creatinine [Mass/Vol] 2.11 mg/dL High 0.50-1.20 [facility] ([place]) Comment on above: Performed By: #### C MP, TSH, FT4, GFR, FT3 #### [address] [address] Electrolyte Balance 5.0 mEq/L Normal 4.0-15.0 [facility] ([place]) Comment on above: Performed By: #### C MP, TSH, FT4, GFR, FT3 #### [address] [address] Globulin 3.9 G/dL High 1.5-3.8 [facility] ([place]) Comment on above: Performed By: #### C MP, TSH, FT4, GFR, FT3 #### [address] [address] Glucose [Mass/Vol] 299 mg/dL High 70-110 [facility] ([place] Comment on above: Performed By: #### C MP, TSH, FT4, GFR, FT3 #### [address] [address] Potassium [Moles/Vol] 4.3 mmol/L Normal 3.5-5.0 [facility] ([place]) Comment on above: Performed By: #### C MP, TSH, FT4, GFR, FT3 #### [address] [address] Sodium [Moles/Vol] 137 mmol/L Normal 136-145 [facility] ([place] Comment on above: Performed By: #### C MP, TSH, FT4, GFR, FT3 #### [address] [address] Total Protein 7.2 G/dL Normal 5.7-8.2 [facility] ([place] Comment on above: Result Comment: No te - New Reference Range in effect 20 Performed By: #### C MP, TSH, FT4, GFR, FT3 #### [address] [address] Urea nitrogen [Mass/Vol] 45.0 mg/dL High 8.0-22.0 [facility] ([place]) Comment on above: Performed By: #### C MP, TSH, FT4, GFR, FT3 #### [place] [address] FT3on 10-16-2023 Free T3 [Mass/Vol] 2.57 pg/mL Normal 2.30-4.20 [facility] ([place] Comment on above: Performed By: #### C MP, TSH, FT4, GFR, FT3 #### [address] [address] FT4on 10-16-2023 Free T4 [Mass/Vol] 1.05 ng/dL Normal 0.89-1.76 [facility] ([place] Comment on above: Result Comment: No te - New Reference Range in effect 20 Performed By: #### C MP, TSH, FT4, GFR, FT3 #### [place] [address] TSHon 10-16-2023 TSH 1.066 mIU/mL Normal 0.550-4.780 [facility] ([place]) Comment on above: Order Comment: DUE N OW Result Comment: No te - New Reference Range in effect 20 Performed By: #### C MP, TSH, FT4, GFR, FT3 #### [address] [address] .Auto Diffon 09-02-2023 Basophil, Absolute 0.1 10 3/mcL Normal 0.0-0.3 [facility] ([place]) Comment on above: Performed By: #### F T3, INSLN, VIDH, CMP, GFR, LIPID, CBC, ADIFF, ANEU, A1C, TSH, FT4, CPEP #### [address] [address] Basophils/100 WBC (Bld) 1.1 % Normal 0.0-2.5 [facility] ([place]) Comment on above: Performed By: #### F T3, INSLN, VIDH, CMP, GFR, LIPID, CBC, ADIFF, ANEU, A1C, TSH, FT4, CPEP #### [address] [address] Eosinophil, Absolute 0.3 10 3/mcL Normal 0.0-0.7 [facility] ([place] Comment on above: Performed By: #### F T3, INSLN, VIDH, CMP, GFR, LIPID, CBC, ADIFF, ANEU, A1C, TSH, FT4, CPEP #### [address] [address] Eosinophils/100 WBC (Bld) 3.1 % Normal 0.0-6.0 [facility] ([place]) Comment on above: Performed By: #### F T3, INSLN, VIDH, CMP, GFR, LIPID, CBC, ADIFF, ANEU, A1C, TSH, FT4, CPEP #### [address] [address] Lymphocyte, Absolute 2.8 10 3/mcL Normal 0.9-4.3 [facility] ([place]) Comment on above: Performed By: #### F T3, INSLN, VIDH, CMP, GFR, LIPID, CBC, ADIFF, ANEU, A1C, TSH, FT4, CPEP #### [address] [address] Lymphocytes/100 WBC (Bld) 31.9 % Normal 20.0-40.0 [facility] ([place]) Comment on above: Performed By: #### F T3, INSLN, VIDH, CMP, GFR, LIPID, CBC, ADIFF, ANEU, A1C, TSH, FT4, CPEP #### [address] [address] Monocyte, Absolute 0.5 10 3/mcL Normal 0.1-1.4 [facility] ([place] Comment on above: Performed By: #### F T3, INSLN, VIDH, CMP, GFR, LIPID, CBC, ADIFF, ANEU, A1C, TSH, FT4, CPEP #### [address] [address] Monocytes/100 WBC (Bld) 5.3 % Normal 2.0-13.0 [facility] ([place]) Comment on above: Performed By: #### F T3, INSLN, VIDH, CMP, GFR, LIPID, CBC, ADIFF, ANEU, A1C, TSH, FT4, CPEP #### [address] [address] Neutrophils/100 WBC (Bld) 58.6 % Normal 50.0-75.0 [facility] ([place]) Comment on above: Performed By: #### F T3, INSLN, VIDH, CMP, GFR, LIPID, CBC, ADIFF, ANEU, A1C, TSH, FT4, CPEP #### [address] [address] .GFRon 09-02-2023 GFR 37 ml/min/1.73sqm Normal [facility] ([place]) Comment on above: Result Comment: GFR Population [...] C MP, TSH, FT4, GFR, FT3 #### [address] [address] GFR Non- 31 ml/min/1.73sqm Normal [facility] ([place]) Comment on above: Result Comment: GFR Population [...] C MP, TSH, FT4, GFR, FT3 #### [place] [address] .NEUABSon 09-02-2023 Neutrophil, Absolute 5.2 10 3/mcL Normal 2.3-8.1 [facility] ([place]) Comment on above: Performed By: #### F T3, INSLN, VIDH, CMP, GFR, LIPID, CBC, ADIFF, ANEU, A1C, TSH, FT4, CPEP #### [place] [id number] A1Con 09-02-2023 HbA1c (Bld) [Mass fraction] 9.9 % High 4.0-6.0 [facility] ([place]) Comment on above: Performed By: #### F T3, INSLN, VIDH, CMP, GFR, LIPID, CBC, ADIFF, ANEU, A1C, TSH, FT4, CPEP #### [place] [id number] CBCon 09-02-2023 Erythrocyte distribution width (RBC) [Ratio] 17.3 % High 11.5-15.5 [facility] ([place]) Comment on above: Performed By: #### F T3, INSLN, VIDH, CMP, GFR, LIPID, CBC, ADIFF, ANEU, A1C, TSH, FT4, CPEP #### [place] [address] Hematocrit (Bld) [Volume fraction] 34.4 % Normal 34.0-46.0 [facility] ([place]) Comment on above: Performed By: #### F T3, INSLN, VIDH, CMP, GFR, LIPID, CBC, ADIFF, ANEU, A1C, TSH, FT4, CPEP #### [place] [address] Hgb 10.9 G/dL Low 12.0-16.0 [facility] ([place] Comment on above: Performed By: #### F T3, INSLN, VIDH, CMP, GFR, LIPID, CBC, ADIFF, ANEU, A1C, TSH, FT4, CPEP #### [place] [address] MCH (RBC) [Entitic mass] 28.3 pg Normal 27.0-33.0 [facility] ([place]) Comment on above: Performed By: #### F T3, INSLN, VIDH, CMP, GFR, LIPID, CBC, ADIFF, ANEU, A1C, TSH, FT4, CPEP #### [place] [address] MCHC 31.7 G/dL Low 32.0-36.0 [facility] ([place]) Comment on above: Performed By: #### F T3, INSLN, VIDH, CMP, GFR, LIPID, CBC, ADIFF, ANEU, A1C, TSH, FT4, CPEP #### [place] [address] MCV (RBC) [Entitic vol] 89.3 fL Normal 80.0-99.0 [facility] ([place]) Comment on above: Performed By: #### F T3, INSLN, VIDH, CMP, GFR, LIPID, CBC, ADIFF, ANEU, A1C, TSH, FT4, CPEP #### [place] [address] Platelet 229 10 3/mcL Normal 150-450 [facility] ([place]) Comment on above: Performed By: #### F T3, INSLN, VIDH, CMP, GFR, LIPID, CBC, ADIFF, ANEU, A1C, TSH, FT4, CPEP #### [address] [address] Platelet mean volume (Bld) [Entitic vol] 9.3 fL Normal 6.6-10.5 [facility] ([place]) Comment on above: Performed By: #### F T3, INSLN, VIDH, CMP, GFR, LIPID, CBC, ADIFF, ANEU, A1C, TSH, FT4, CPEP #### [address] [address] RBC 3.85 10 6/mcL Low 4.10-5.30 [facility] ([place] Comment on above: Performed By: #### F T3, INSLN, VIDH, CMP, GFR, LIPID, CBC, ADIFF, ANEU, A1C, TSH, FT4, CPEP #### [place] [id number] WBC 8.8 10 3/mcL Normal 4.5-10.8 [facility] ([place]) Comment on above: Performed By: #### F T3, INSLN, VIDH, CMP, GFR, LIPID, CBC, ADIFF, ANEU, A1C, TSH, FT4, CPEP #### [address] [address] CMPon 09-02-2023 Albumin Level 3.6 G/dL Normal 3.2-4.8 [facility] ([place] Comment on above: Performed By: #### C MP, TSH, FT4, GFR, FT3 #### [place] [address] Albumin/Globulin [Mass ratio] 1.0 {ratio} Normal 0.9-1.6 [facility] ([place]) Comment on above: Performed By: #### C MP, TSH, FT4, GFR, FT3 #### [place] [id number] ALP [Catalytic activity/Vol] 101 U/L Normal 38-126 [facility] ([place]) Comment on above: Performed By: #### C MP, TSH, FT4, GFR, FT3 #### [address] [address] ALT [Catalytic activity/Vol] 59 U/L High 10-49 [facility] ([place]) Comment on above: Performed By: #### C MP, TSH, FT4, GFR, FT3 #### [address] [address] AST [Catalytic activity/Vol] 35 U/L High 8-34 [facility] ([place]) Comment on above: Performed By: #### C MP, TSH, FT4, GFR, FT3 #### [address] [address] Bili Total 0.30 mg/dL Normal 0.20-1.20 [facility] ([place]) Comment on above: Result Comment: Use of this assay is not recommended for patients undergoing treatment with eltrombopag due to the potential for falsely elevated results. Performed By: #### C MP, TSH, FT4, GFR, FT3 #### [address] [address] BUN/Creatinine Ratio 25.1 ratio High 10.0-22.0 [facility] ([place]) Comment on above: Performed By: #### C MP, TSH, FT4, GFR, FT3 #### [address] [address] Calcium [Mass/Vol] 9.6 mg/dL Normal 8.7-10.4 [facility] ([place] Comment on above: Performed By: #### C MP, TSH, FT4, GFR, FT3 #### [address] [address] Chloride [Moles/Vol] 99 mmol/L Normal 98-110 [facility] ([place]) Comment on above: Performed By: #### C MP, TSH, FT4, GFR, FT3 #### [address] [address] CO2 [Moles/Vol] 27 mmol/L Normal 22-32 [facility] ([place]) Comment on above: Performed By: #### C MP, TSH, FT4, GFR, FT3 #### [address] [address] Creatinine [Mass/Vol] 1.71 mg/dL High 0.50-1.20 [facility] ([place]) Comment on above: Performed By: #### C MP, TSH, FT4, GFR, FT3 #### [place] [id number] Electrolyte Balance 8.0 mEq/L Normal 4.0-15.0 [facility] ([place]) Comment on above: Performed By: #### C MP, TSH, FT4, GFR, FT3 #### [place] [id number] Globulin 3.5 G/dL Normal 1.5-3.8 [facility] ([place]) Comment on above: Performed By: #### C MP, TSH, FT4, GFR, FT3 #### [place] [address] Glucose [Mass/Vol] 424 mg/dL Critically abnormal 70-110 [facility] ([place] Comment on above: Performed By: #### C MP, TSH, FT4, GFR, FT3 #### [address] [address] Potassium [Moles/Vol] 4.3 mmol/L Normal 3.5-5.0 [facility] ([place]) Comment on above: Performed By: #### C MP, TSH, FT4, GFR, FT3 #### [address] [address] Sodium [Moles/Vol] 134 mmol/L Low 136-145 [facility] ([place] Comment on above: Performed By: #### C MP, TSH, FT4, GFR, FT3 #### [place] [id number] Total Protein 7.1 G/dL Normal 5.7-8.2 [facility] ([place]) Comment on above: Result Comment: No te - New Reference Range in effect 20 Performed By: #### C MP, TSH, FT4, GFR, FT3 #### [place] [address] Urea nitrogen [Mass/Vol] 43.0 mg/dL High 8.0-22.0 [facility] ([place]) Comment on above: Performed By: #### C MP, TSH, FT4, GFR, FT3 #### [place] [address] CPEPon 09-02-2023 C-Peptide 10.41 ng/mL High 0.81-3.85 [facility] ([place]) Comment on above: Performed By: #### C MP, TSH, FT4, GFR, FT3 #### [place] [address] FT3on 09-02-2023 Free T3 [Mass/Vol] 3.10 pg/mL Normal 2.30-4.20 [facility] ([place] Comment on above: Performed By: #### C MP, TSH, FT4, GFR, FT3 #### [place] [address] FT4on 09-02-2023 Free T4 [Mass/Vol] 1.81 ng/dL High 0.89-1.76 [facility] ([place] Comment on above: Result Comment: No te - New Reference Range in effect 20 Performed By: #### C MP, TSH, FT4, GFR, FT3 #### [place] [address] INSLNon 09-02-2023 Insulin 29.67 munit/L Normal 2.60-37.60 [facility] ([place] Comment on above: Performed By: #### C MP, TSH, FT4, GFR, FT3 #### [place] [address] LIPIDon 09-02-2023 Cholesterol [Mass/Vol] 186 mg/dL Normal 50-199 [facility] ([place]) Comment on above: Result Comment: Chol esterol Reference Interval: Less than 200 Desirable 200-239 Borderline high risk 240 and above High risk Performed By: #### C MP, TSH, FT4, GFR, FT3 #### [address] [address] Cholesterol in HDL [Mass/Vol] 34 mg/dL Low 40-59 [facility] ([place]) Comment on above: Performed By: #### C MP, TSH, FT4, GFR, FT3 #### [address] [address] Cholesterol in LDL [Mass/Vol] 80 mg/dL Normal 0-129 [facility] ([place]) Comment on above: Performed By: #### C MP, TSH, FT4, GFR, FT3 #### [address] [address] Triglyceride [Mass/Vol] 359 mg/dL High 3-149 [facility] ([place]) Comment on above: Performed By: #### C MP, TSH, FT4, GFR, FT3 #### [place] [id number] MALBRon 09-02-2023 U Creatinine 27.4 mg/dL Normal [facility] ([place]) Comment on above: Performed By: #### M ALBR #### [address] [address] U Microalb <300 Normal [facility] ([place]) Comment on above: Performed By: #### M ALBR #### [address] [address] U Ratio Alb/Cre Unable to Calculate Normal 0.0-24.9 [facility] ([place]) Comment on above: Result Comment: Unab le to calculate this test result accurately. Results used to calculate this test are outside the reportable range. Performed By: #### M ALBR #### [place] [id number] TSHon 09-02-2023 TSH 0.017 mIU/mL Low 0.550-4.780 [facility] ([place]) Comment on above: Result Comment: No te - New Reference Range in effect 20 Performed By: #### C MP, TSH, FT4, GFR, FT3 #### [address] [address] VIDHon 09-02-2023 Vit. D 25-Hydroxy 51.2 ng/mL Normal [facility] ([place]) Comment on above: Result Comment: Inte rpretive Values Based on Total 25(OH)D: Severe Deficiency <20 ng/mL Mild to Moderate Deficiency 20-30 ng/mL Optimum Levels 30-100 ng/mL Toxicity Possible >100 ng/mL Performed By: #### C MP, TSH, FT4, GFR, FT3 #### [address] [address] Miscellaneous Lab Procedureo n 07-18-2023 MISC LAB TEST Normal [facility] Comment on above: Order Comment: #76 [...] includes Oxycodone and Oxymorphone. TESTING PERFORMED AT [facility]. ORIGINAL REPORT ON FILE IN LAB CONTAINS ADDITIONAL TEST SITE INFORMATION. Performed By: #### L 801.1541, L505.5000, L505.6140 #### [facility] [address] [place], [address] BUP Urine Drug Screenon 06-21 BUP DRG SCREEN Negative Normal <10 ng/mL [facility] Comment on above: Order Comment: U Performed By: #### L 801.1541, L505.5000, L505.6140 #### [facility] [address] [place], [address] DRUG CONFIRM Normal [facility] Comment on above: Order Comment: U [...] By: #### L 801.1541, L505.5000, L505.6140 #### [facility] [address] [place], [address] Urine Drug Screen (VISTA)on 07-16-2023 AMPHETAMINES Negative Normal <1000 ng/mL [facility] Comment on above: Order Comment: U Performed By: #### L 801.1541, L505.5000, L505.6140 #### [facility] [address] [place], [address] BARBITIURATES Negative Normal < 200 ng/mL [facility] Comment on above: Order Comment: U Performed By: #### L 801.1541, L505.5000, L505.6140 #### [facility] [address] [place], [address] BENZODIAZIPINE Negative Normal < 200 ng/mL [facility] Comment on above: Order Comment: U Performed By: #### L 801.1541, L505.5000, L505.6140 #### [facility] [address] [place], [address] COCAINE Negative Normal < 300 ng/mL [facility] Comment on above: Order Comment: U Performed By: #### L 801.1541, L505.5000, L505.6140 #### [facility] [address] [place], [address] ECSTACY Negative Normal < 500 ng/mL [facility] Comment on above: Order Comment: U Performed By: #### L 801.1541, L505.5000, L505.6140 #### [facility] [address] [place], [address] METHADONE Negative Normal < 300 ng/mL [facility] Comment on above: Order Comment: U Performed By: #### L 801.1541, L505.5000, L505.6140 #### [facility] [address] [place], [address] OPIATES Negative Normal < 300 ng/mL [facility] Comment on above: Order Comment: U Performed By: #### L 801.1541, L505.5000, L505.6140 #### [facility] [address] [place], [address] PCP Negative Normal < 25 ng/mL [facility] Comment on above: Order Comment: U Performed By: #### L 801.1541, L505.5000, L505.6140 #### [facility] [address] [place], [address] THC Negative Normal < 50 ng/mL [facility] Comment on above: Order Comment: U Performed By: #### L 801.1541, L505.5000, L505.6140 #### [facility] [address] [place], [address] VISTA UDS PH 4 Normal [facility] Comment on above: Order Comment: U Performed By: #### L 801.1541, L505.5000, L505.6140 #### [facility] [address] [place], [address] Spine Cervical (Routine)on 08-31-2022 Spine Cervical (Routine) [facility] [address] [place] [address] Spine Cervical (Routine) MR#: [id number] Acct: [id number] Name: ALBA BISWAS Rep #: [id number] : 1965 F 57 From: Eligio Padilla MD PCP: Dr. Maritza Villalta MD Status: REG [facility] Study: Spine Cervical (Routine) Date of Exam: Exam# [id number] Ordering Dr: Christiano Small MD [id number] EXAM: MR CERVICAL SPINE WITHOUT INTRAVENOUS CONTRAST [...] Christiano Small MD; Dr. Maritza Villalta MD [address] Services: Signed Normal [facility] Upper Ext Joint Only(Routine )on 06-30-2023 Upper Ext Joint Only(Routine) [facility] [address] [place] [address] Upper Ext Joint Only(Routine) MR#: [id number] Acct: [id number] Name: ALBA BISWAS Rep #: [id number] : 1965 F 57 From: Bill Tristan MD PCP: Dr. Maritza Villalta MD Status: REG CLI Study: Upper Ext Joint Only(Routine) Date of Exam: 08/31/22 Exam# [id number] Ordering Dr: Louis Townsend MD [id number] STUDY: MRI RIGHT SHOULDER REASON FOR EXAM: [...] 15:21 EST Reading Location ID and State: [address] [place] [address] , Service support , CC: Dr. Louis Townsend MD; Dr. Maritza Villalta MD [address] Services: Signed Normal [facility] Orthopedic Visit Reporton Orthopedic Visit Report [facility] [address] [place] [address] OFFICE VISIT Date of Service: 05/29/23 MR#: [id number] Acct: [id number] Name: ALBA BISWAS Rep #: [id number] : 1965 Provider: Dr. Louis yousif MD Age/Sex: 57/F Location: [facility] Status: Signed Intake Vital Signs 04/02/21 11:10 [...] intranasal 05/29/23 [History Confirmed 05/29/23] blood-glucose meter (EkoTouch Ultra2 Meter) #1 ea 05/29/23 [History Confirmed [...] by me, Dr. Louis Townsend MD 05/29/23 9360. Part of today???s visit was documented by [...] pain M25.511 (more content not included)... Normal [facility] Shoulder min 2 Viewson 05-29 Shoulder min 2 Views [facility] [address] [place] [address] Shoulder min 2 Views MR#: [id number] Acct: [id number] Name: ALBA BISWAS Rep #: [id number] : 1965 F 57 From: Fausto diaz MD PCP: Dr. Maritza Villalta MD Status: DEP AMB Study: Shoulder min 2 Views Date of Exam: 05/29/23 Exam# [id number] Ordering Dr: Louis Townsend MD [id number] INDICATION: pain EXAMINATION/TECHNIQUE : X-RAY - RIGHT [...] Louis Townsend MD; Dr. Maritza Villalta MD [address] Services: Signed Normal [facility] - Drug toxicology on 04-18-2022 Amphetamines Ql (U) Negative <1000 ng/mL [facility] Work Phone: Benzodiazepines Ql (U) Negative < 200 ng/mL [facility] Work Phone: Cannabinoids Screen Ql (U) Negative < 50 ng/mL [facility] Work Phone: Cocaine Ql (U) Negative < 300 ng/mL [facility] Work Phone: Opiates Ql (U) Negative < 300 ng/mL [facility] Work Phone: No Panel Informationon 04-18 MDMA (Ecstasy) Screen Negative < 500 ng/mL [facility] Work Phone: Urine Barbiturates Screen Negative < 200 ng/mL [facility] Work Phone: Urine Drug Screen Comment [facility] Work Phone: Comment on above: CONFIRMATORY [...] Urine Methadone Screen Negative < 300 ng/mL [facility] Work Phone: Screening buprenorphine dete ctionon 04-18-2022 Buprenorphine Screen Ql (Unsp spec) Negative <10 ng/mL [facility] Work Phone: Urine phencyclidine (PCP) de tectionon 04-18-2022 Phencyclidine Ql (U) Negative < 25 ng/mL [facility] Work Phone: Hemoglobin A1con 03-29-2021 Glucose [Mass/Vol] 146 mg/dL Normal [facility] Comment on above: Performed By: #### H BA1C #### [facility] Routine Lab [address] [place], [place] [address] HbA1c (Bld) [Mass fraction] 6.7 % High 4.3-5.6 [facility] Reference Lab Comment on above: Performed By: #### H BA1C #### [facility] Routine Lab [address] [place], [place] [address] Vital Signs Date Time Vital Sign Value Performing Clinician Faci lity 05-29-2023 13:40-0500 Body height 160.[address] Maritza Villalta Work Phone: [facility] 05-29-2023 13:40-0500 Body mass index (BMI) [Ratio] 46.2 kg/m2 Dr. Maritza Villalta Work Phone: [facility] 05-29-2023 13:40-0500 Body weight 118.[address] Maritza Villalta Work Phone: [facility] Encounters Encounter Date Encounter Type Care Provider Facility Start: 01-03-2025 ambulatory [facility] Start: 10-05-2024 End: 10-05-[address] MARITZA VILLALTA MD Facility:A Start: 08-09-2024 End: 08-09-2024 ambulatory MARITZA VILLALTA [facility] Start: 07-23-2024 End: 07-23-2024 ambulatory MARITZA AJ SYEDA [facility] Start: 06-30-2024 End: 06-30-2024 ambulatory MARITZA VILLALTA [facility] Start: 05-24-2024 End: 05-24-2024 ambulatory CHARLES BARRIOS MORTUARY TECHNICIAN-TRIAL COURT JUDGE Facility:A Start: 02-27-2024 End: 02-27-2024 ambulatory CHARLES Reinoso SOPHIE [facility] Start: 02-20-2024 ambulatory ANTONIO AJ [facility] Start: 02-20-2024 End: 02-20-2024 ambulatory ANTONIO AJ [facility] Start: 01-26-2024 ambulatory ANTONIO AJ [facility] Start: 01-26-2024 End: 01-26-2024 ambulatory ANTONIO AJ [facility] Start: 10-23-2023 End: 10-24-[address] MARITZA VILLALTA MD Facility:A Start: 10-16-2023 End: 10-17-[address] MARITZA VILLALTA MD Facility:A Start: 09-02-2023 End: 09-03-2023 ambulatory CHARLES BARRIOS APRN-TRIAL COURT JUDGE Facility:A Start: 07-16-2023 ambulatory Maritza Villalta Facility:[facility] Start: 06-30-2023 End: 06-30-2023 ambulatory Maritza Villalta Facility:[facility] Start: 06-30-2023 End: 06-30-[address] Maritza Villalta Work Phone: [facility] Work Phone: Start: 05-29-2023 End: 05-29-2023 ambulatory Maritza Villalta Facility:[facility] Start: 05-29-2023 End: 05-29-[address] Maritza Villalta Work Phone: [facility] Work Phone: Start: 04-18-2022 End: 04-18-2022 ambulatory [facility] Work Phone: Start: 04-18-2022 End: 04-18-2022 Patient encounter procedure [facility] Start: 12-27-2021 End: 12-27-2021 Patient encounter procedure [facility], [facility] Procedures Date Procedure Procedure Detail Performing Clinician Start: 06-30-2023 MRI of cervical spine Claudia Villalta Work Phone: Start: 06-30-2023 MRI of joint of lowe r extremity Dr. Maritza Villalta Work Phone: Start: 05-29-2023 Plain X-ray of shoulder Dr. Maritza Villalta Work Phone: Start: 12-27-2021 Radiologic examinati on of knee Plan of Treatment Date Care Activity Detail Author Start: 04-18-2022 Procedure [facility] Work Phone: Procedure [facility] Work Phone: Payers Date Payer Category Payer Private Health Insurance [id number] 2023 Self-pay [id number] 2010 Medicare [id number] 1965 Unknown [id number] 2.16.8 40.1.363634.3.579.2.7 1965 Unknown [id number] 2.16.8 40.1.816546.3.579.2. 1965 Unknown [id number] 2.16.8 40.1.105047.3.579.2.62 1965 Unknown [id number] 2.16.8 40.1.141147.3.579.2.627 1965 Unknown [id number] 2.16.8 40.1.230976.3.579.2.627 1965 Unknown [id number] 2.16.8 40.1.705354.3.579.2.651 1965 Unknown [id number] 2.16.8 40.1.097204.3.579.2.651 1965 Unknown [id number] 2.16.8 40.1.762894.3.579.2.651 1965 Unknown [id number] 2.16.8 40.1.126669.3.579.2.651 1965 Unknown [id number] 2.16.8 40.1.668623.3.579.2.651 1965 Unknown [id number] 2.16.8 40.1.786359.3.579.2.651 1965 Unknown [id number] 2.16.8 40.1.867336.3.579.2.651 1965 Unknown [id number] 2.16.8 40.1.022874.3.579.2.651 1965 Unknown [id number] 2.16.8 40.1.387663.3.579.2.651 1965 Unknown [id number] 2.16.8 40.1.056888.3.579.2.651 Unknown [id number] 2.16.8 40.1.896572.3.579.2.462 Unknown [id number] 2.16.8 40.1.870703.3.579.2.462 Unknown [id number] 2.16.8 40.1.050323.3.579.2.462 Unknown [id number] 2.16.8 40.1.656740.3.579.2.462 Social History Date Type Detail Facility Start: 04-16-2021 End: 05-29-2023 Tobacco smoking status MIIS Unknown if ever smoked [facility] Start: 1965 Sex Assigned At Female W [facility] Medical Equipment Procedure Code Equipment Code Equipment [...] Evaluation note No assessment information availa ble [facility] Work Phone: Evaluation note Note Date & Type Note Facility Evaluation note Diagnosis Onset Date Right shoulder pain acute [facility] Work Phone: Summary Purpose Family History [...] section and content) DATE CREATED AUTHOR 03/30/2021 [facility] DATE CREATED AUTHOR AUTHOR'S ORGANIZ ATION 07/20/2023 [facility] DATE CREATED AUTHOR AUTHOR'S ORGANIZ ATION 10/28/2023 [facility] ([place]) DATE CREATED AUTHOR AUTHOR'S ORGANIZ ATION 10/07/2024 [facility] DATE CREATED AUTHOR AUTHOR'S ORGANIZ ATION 01/05/2025 [facility] Goals (unrecognized section and content) Goals may [...] Villalta MD Primary Care Provider Active Dr. Bboby Henry MD Attending Provider Active Team Status: [...] BE BASED ON THE PRIMARY CLINICAL RECORDS. [employer] provides no warranty or guarantee of the accuracy or completeness of information in this document.
== END | disposition home or self-care (01) ==
PROVIDERS: PCP Internal Medicine Infectious Disease; Referring Provider Anesthesiology Pain Medicine; Visit Provider Anesthesiology Pain Medicine
DX: F11.20 Opioid dependence, uncomplicated (principal)
CPT/HCPCS: 80307